=== PATIENT | male | born 1945 | race Caucasian/White ===

== ENCOUNTER 2023-10-25 12:13 | Outpatient (OUT) | payer MEDICARE, SELFPAY | END 2023-10-25 12:14 | disposition home or self-care (01) | LOC: PST 12:14 | PROVIDERS: PCP Internal Medicine; Visit Provider Surgery | DX: Z01.818 Encounter for other preprocedural examination (principal); R19.5 Other fecal abnormalities ==

== ENCOUNTER 2023-11-01 07:56 | Day surgery (SDC) | payer MEDICARE, OTHER, SELFPAY ==
--- NOTE | 2023-11-01 | OP_ITS ---
OPERATION DATE: 11/01/2023 PREOPERATIVE DIAGNOSIS: Positive Cologuard. POSTOPERATIVE DIAGNOSIS: A 4 mm descending colon polyp and severe descending and sigmoid diverticulosis. PROCEDURE: Colonoscopy to cecum with cold biopsy forceps polypectomy x1. SURGEON: Ben Mariano M.D. ANESTHESIA: Monitored anesthesia care. ESTIMATED BLOOD LOSS: Less than 1 mL. INDICATIONS AND CONSENT: Patient is a 78-year-old male with a recent positive Cologuard. Indications, risks, benefits, alternatives of proceeding with colonoscopy were explained extensively to the patient, including the risks of bleeding, colon perforation or anesthetic complications. All of his questions were answered. Informed consent was obtained. PROCEDURE: Patient brought to the operating room, placed in the left lateral decubitus position. Monitored anesthesia care was provided. Rectal exam was performed which showed no masses or blood. The scope was inserted into the anal canal. Under direct visualization was advanced. With the aid of abdominal compression, it was advanced to the cecum where cecal markings were clearly identified. There was noted to be a fair prep with some brown liquid stool and semi-solid stool that was partially irrigated clear. Upon withdrawal of the scope, mucosal surfaces were carefully examined. There were no mass lesions or inflammatory changes. There was severe diverticulosis in the descending and sigmoid colon, without inflammatory changes or scarring. Within the descending colon, there was noted to be a 4 mm sessile polyp that was removed with cold biopsy forceps with good hemostasis. The scope was retroflexed in the anal canal. There was noted to be no significant hemorrhoidal disease. Scope was then withdrawn. Patient tolerated procedure well, was sent to recovery room in good condition. Follow up surveillance colonoscopy likely in five years but will depend on the pathology results. CC: Nina Ward
[2023-11-01 08:21] VITALS: BP 154/96; PULSE 96; RESP 16; TEMP 36.2; O2SAT 96; BMI 27.9
[2023-11-01] MEDS: LACTATED RINGER'S SOLUTION 1,000 ML 50 ML IV (08:31)
[2023-11-01 10:24] VITALS: BP 94/57; PULSE 77; RESP 16; TEMP 36.1; O2SAT 97
[2023-11-01 10:39] VITALS: BP 112/82; PULSE 73; RESP 16; O2SAT 97
[2023-11-01 10:54] VITALS: BP 114/86; PULSE 82; RESP 16; O2SAT 96
== END 2023-11-01 10:54 | disposition home or self-care (01) ==
PROVIDERS: PCP Internal Medicine; Visit Provider Surgery
PROC: (CPT 45380; principal; 2023-11-01 09:25)
DX: R19.5 Other fecal abnormalities (principal); K57.30 Diverticulosis of large intestine without perforation or abscess without bleeding; D12.4 Benign neoplasm of descending colon; N40.1 Benign prostatic hyperplasia with lower urinary tract symptoms; F32.A Depression, unspecified; K21.9 Gastro-esophageal reflux disease without esophagitis; Z87.442 Personal history of urinary calculi; E78.5 Hyperlipidemia, unspecified; I10 Essential (primary) hypertension; R33.9 Retention of urine, unspecified; R35.1 Nocturia; G47.33 Obstructive sleep apnea (adult) (pediatric); Z68.28 Body mass index [BMI] 28.0-28.9, adult; N41.9 Inflammatory disease of prostate, unspecified; E11.9 Type 2 diabetes mellitus without complications; R35.0 Frequency of micturition; R39.15 Urgency of urination; R32 Unspecified urinary incontinence; E66.9 Obesity, unspecified; Z87.891 Personal history of nicotine dependence; I65.29 Occlusion and stenosis of unspecified carotid artery; I71.9 Aortic aneurysm of unspecified site, without rupture
CPT/HCPCS: 45380; 88305; J2704

== ENCOUNTER 2024-09-07 09:02 | Emergency (ER) | payer MEDICARE, OTHER, SELFPAY ==
[2024-09-07 09:07] VITALS: BP 175/94; PULSE 60; TEMP 36.5; O2SAT 99; BMI 28.0
--- NOTE | 2024-09-07 09:17 | CT_ITS ---
The [address] [address] Patient Name: SAIDA HOANG MRN: [id number] date: 1945 Sex: M Assigned Patient Location: ER Current Patient Location: ED.MAIN Accession/Order Number: [id number] Exam Date: 09/07/2024 09:28 Report Date: 09/07/2024 10:58 At the request of: BRAVO BUSH Procedure: CT abdomen pelvis wo con CT ABDOMEN AND PELVIS WITHOUT CONTRAST: 09/07/2024 9:28 AM EDT Clinical Data: left flank pain hx of stone Comparison: No previous Unenhanced helically acquired data per protocol. The lack of IV contrast material hampers evaluation of the viscera, for adenopathy, and of the vasculature. The lack of oral contrast medium to some extent hampers evaluation of the bowel. All CT scans at this facility use dose modulation, iterative reconstruction, and/or weight based dosing when appropriate to reduce radiation dose to as low as reasonably achievable. FINDINGS: LOWER THORAX: Calcified pleural plaques at both bases. Areas of relatively mild linear atelectasis at both bases. LIVER: No acute findings. SPLEEN: No acute findings. GB/BILIARY: No acute findings at CT. PANCREAS: Head, neck, and uncinate process are extensively fatty replaced ADRENALS: No acute findings. KIDNEYS/URETERS: Kidneys are symmetric in size and overall density on this unenhanced study. No right hydronephrosis or hydroureter. No right calculi. Mild left hydronephrosis and hydroureter to a position a few cm proximal to the UVJ. At this point there is a is a 6.7 mm ureteral calculus. The far distal ureter and UVJ are unremarkable. VESSELS: No AAA ABDOMINAL NODES: No obvious adenopathy. PELVIC NODES: No obvious adenopathy. BLADDER: No acute findings. REPRODUCTIVE: No acute findings. PERITONEUM: No free air. No free fluid. EXTRAPERITONEUM: No acute findings. BOWEL: No GI obstruction. A moderate amount of stool in the throughout much of the colon. The sigmoid is fairly redundant. There are colonic diverticula. Small hiatal hernia suspected. Mild amount of debris in the stomach. Small bowel is not distended. It contains a mild amount of material. On this study performed without oral contrast medium, no focally thickened loop of bowel is apparent. BODY WALL: No acute findings.. BONES: No acute findings. Suspect a significant central stenosis at L4-L5 and potentially at L2-L3 as well OTHER: No acute findings. CT/CT abdomen pelvis wo con IMPRESSION: 1. Mild left hydronephrosis and hydroureter. In the pelvic left ureter there is a 6.7 mm calculus. 2. Calcified pleural plaques along both diaphragmatic surfaces. Was there prior asbestos exposure? 3. No GI obstruction. Moderate amount stool within the colon. Several colonic diverticula but no distinct evidence of diverticulitis.. Electronically authenticated by: LATRICE GONZALEZ Date: 09/07/2024 10:58
--- NOTE | 2024-09-07 09:18 | ED.ABDPAIN1 ---
HPI - Abdominal Pain General Chief Complaint: Abdominal Pain Stated Complaint: ABDOMINAL PAIN Time Seen by Provider: 09/07/24 09:12 Source: patient Mode of arrival: walk-in History of Present Illness HPI narrative: The patient is a 79-year-old male with history of kidney stone coming to the ER with few hours history of left-sided flank pain radiating to the groin area, the patient have no fever no chills no burning with urination He mentioned that this all symptoms started this morning and the patient pain is crampy like Patient also mentioned that last time he had abdominal pain due to kidney stone was a year ago Related Data Home Medications ?Medication ?Instructions ?Recorded ?Confirmed bupropion HCl 450 mg 24 hr tablet, 450 mg PO DAILY 10/24/23 11/01/23 extended release doxepin 10 mg capsule 10 mg PO BID 10/24/23 11/01/23 ertugliflozin 5 mg tablet 5 mg PO DAILY 10/24/23 11/01/23 (Steglatro) ezetimibe 10 mg tablet (Zetia) 5 mg PO DAILY 10/24/23 11/01/23 finasteride 5 mg tablet 5 mg PO DAILY 10/24/23 11/01/23 folic acid 1 mg tablet 1 mg PO DAILY 10/24/23 11/01/23 magnesium oxide 400 mg PO DAILY 10/24/23 11/01/23 montelukast 10 mg tablet 10 mg PO DAILY 10/24/23 11/01/23 yiqnjfst-vqz-khjcl acid 0.4 1 tab PO DAILY 10/24/23 11/01/23 mg-lycopene 300 mcg-lutein 250 mcg tablet (Centrum Silver) nabumetone 500 mg tablet 500 mg PO BID 10/24/23 11/01/23 omeprazole 40 mg capsule,delayed 40 mg PO DAILY 10/24/23 11/01/23 release polyethylene glycol 3350 17 17 g PO BID 10/24/23 11/01/23 gram/dose oral powder (Miralax) potassium citrate 10 mEq (1,080 10 meq PO DAILY 10/24/23 11/01/23 mg) tablet,extended release rosuvastatin 20 mg tablet (Crestor) 20 mg PO DAILY 10/24/23 11/01/23 sacubitril 24 mg-valsartan 26 mg 1 tab PO BID 10/24/23 11/01/23 tablet (Entresto) Previous Rx's ?Medication ?Instructions ?Recorded doxycycline hyclate 100 mg tablet 100 mg PO BID 7 days #14 tabs 09/07/24 tamsulosin 0.4 mg capsule (Flomax) 0.4 mg PO DAILY #10 caps 09/07/24 Allergies Allergy/AdvReac Type Severity Reaction Status Date / Time Penicillins Allergy Severe Verified 10/24/23 11:23 codeine Allergy Intermediate Verified 10/24/23 10:16 quinapril (From Accupril) Allergy Intermediate Verified 10/24/23 10:16 Sulfa (Sulfonamide Allergy Intermediate Verified 10/24/23 10:16 Antibiotics) Review of Systems ROS Status of ROS 10 or more systems reviewed and unremarkable except as noted in history and below [facility] Medical History (Updated 09/07/24 @ 11:41 by Makenzie West MD) Abnormal cystoscopy ?R39.9 - Unspecified symptoms and signs involving the genitourinary system (ICD-10) Kidney stones ?N20.0 - Calculus of kidney (ICD-10) Carotid atherosclerosis ?I65.29 - Occlusion and stenosis of unspecified carotid artery (ICD-10) BPH (benign prostatic hyperplasia) ?N40.0 - Benign prostatic hyperplasia without lower urinary tract symptoms (ICD-10) Surgical History (Updated 10/27/23 @ 15:17 by Gardenia Hall) History of cystoscopy ?Z98.890 - Other specified postprocedural states (ICD-10) History of lithotripsy ?Z98.890 - Other specified postprocedural states (ICD-10) History of esophagogastroduodenoscopy (EGD) ?Z98.890 - Other specified postprocedural states (ICD-10) History of colonoscopy ?Z98.890 - Other specified postprocedural states (ICD-10) History of carotid endarterectomy ?Z98.890 - Other specified postprocedural states (ICD-10) History of cardiac cath ?Z98.890 - Other specified postprocedural states (ICD-10) S/P TURP ?Z90.79 - Acquired absence of other genital organ(s) (ICD-10) Family History (Updated 10/24/23 @ 10:12 by Gardenia Dominguez) Other Family history of cancer Social History (Updated 10/27/23 @ 15:31 by Gardenia Hall) Within the past year, how often did you have a drink containing alcohol: never Score interpretation: A score less than 4 is consistent with normal alcohol consumption. Smoking status: Former smoker Non-prescribed substance use: denies use Previous occupational history: retired Highest level of school completed/degree received: 10th grade Little interest or pleasure in doing things: not at all Feeling down, depressed, or hopeless: not at all Exam Narrative Exam Narrative: Nurses notes and vital signs reviewed and patient is not hypoxic. General: Well-appearing and in no apparent distress. Skin: Warm, dry, no pallor noted. No rash. Head: Normocephalic, atraumatic. Neck: Supple, non-tender. Eye: Pupils are equal, round and EOMI. No scleral icterus. Ears, Nose, Mouth, and Throat: TM are clear, no nasal mucosal hypertrophy. Oral mucosa is moist, no posterior oropharynx erythema, uvula is mid-line Cardiovascular: Regular Rate and Rhythm without murmur, gallop or rub. Respiratory: No accessory muscle use or respiratory distress. Lungs are clear to auscultation, no wheezing, rales or rhonchi Chest Wall: no tenderness Back: No midline thoracic or lumbar vertebral tenderness. Left CVA tenderness Musculoskeletal: normal ROM, no calf or popliteal tenderness, no lower extremity edema/swelling GI: Abdomen is soft, non-distended. Normal bowel sounds. No masses appreciated. No tenderness to palpation. No rebound, guarding, or rigidity noted. Neurological: A&O x4. No cranial nerve dysfunction observed. No truncal ataxia. Moves all extremities. Sensation intact. Psychiatric: Cooperative and interactive. Normal mood and affect. Constitutional Vital Signs, click to edit/add: Last Vital Signs Temp 97.7 F 09/07/24 09:07 Pulse 60 09/07/24 09:07 Resp 18 09/07/24 09:07 BP 175/94 H 09/07/24 09:07 Pulse Ox 99 09/07/24 09:07 Course Vital Signs Vital signs: Vital Signs Temperature 97.7 F 09/07/24 09:07 Pulse Rate 60 09/07/24 09:07 Respiratory Rate 18 09/07/24 09:07 Blood Pressure 175/94 H 09/07/24 09:07 Pulse Oximetry 99 09/07/24 09:07 Temperature 97.7 F 09/07/24 09:07 Pulse Rate 60 09/07/24 09:07 Respiratory Rate 18 09/07/24 09:07 Blood Pressure 175/94 H 09/07/24 09:07 Pulse Oximetry 99 09/07/24 09:07 MDM - Abdominal Pain MDM Narrative Medical decision making narrative: The patient is a having pain only from this morning CBC and chemistry shows some acute kidney injury with creatinine 1.9 and he does have a history of chronic kidney disease There is no leukocytosis and the urinalysis shows some bacteria The patient CAT scan shows hydronephrosis mild on the left side with a 6.5 mm kidney stone The patient case was discussed with Dr. David in urology: Service and she wants to follow-up with the patient on Monday Patient meanwhile was started on Flomax he is to avoid any ibuprofen he also provided with doxycycline to cover for prophylactic urine infection coverage The patient to follow-up with the urology service on Monday he is to come back to the ER in case of fever chills or any other concerns He will just take Tylenol for pain as he is feeling much better after initial treatment The patient is to follow up with primary care physician in next 2-3 days or to return to the emergency department should any of the signs or symptoms worsen or new symptoms develop. The patient agrees with the following Diagnosis and Treatment plan and the patient will be discharged home. Lab Data Labs: Lab Results 09/07/24 09/07/24 Range/Units 09:21 09:47 WBC 9.8 (4.0-11.0) 10^3/uL RBC 4.83 (4.70-6.10) 10^6/uL Hgb 14.1 (14.0-18.0) g/dL Hct 43.0 (42.0-54.0) % MCV 89.0 (80.0-94.0) fL MCH 29.2 (25.9-34.0) pg MCHC 32.8 (29.9-35.2) g/dL RDW 12.5 (11.0-15.0) % Plt Count 273 (150-450) 10^3/uL MPV 9.8 (9.5-13.5) fL Neut % (Auto) 69.9 (43.0-75.0) % Lymph % (Auto) 12.0 L (20.5-60.0) % [place] % (Auto) 9.4 (1.7-12.0) % Eos % (Auto) 7.5 H (0.9-7.0) % Baso % (Auto) 1.0 (0.2-2.0) % Neut # (Auto) 6.9 H (1.4-6.5) 10^3/uL Lymph # (Auto) 1.2 (1.2-3.8) 10^3/uL [place] # (Auto) 0.9 H (0.3-0.8) 10^3/uL Eos # (Auto) 0.7 (0.0-0.7) 10^3/uL Baso # (Auto) 0.1 (0.0-0.1) 10^3/uL Abs Immat Gran (auto) 0.02 (0.00-0.03) 10^3/uL Imm/Tot Granulo (auto) 0.2 (0.0-0.5) % Sodium 144 (136-145) mmol/L Potassium 4.4 (3.5-5.1) mmol/L Chloride 107 (98-107) mmol/L Carbon Dioxide 24.4 (21.0-32.0) mmol/L Anion Gap 17.0 BUN 22.0 H (7.0-18.0) mg/dL Creatinine 1.91 H (0.70-1.30) mg/dL Est GFR ( Amer) 42 L (>=60 mL/min/1.73m^2) Est GFR (Non-Af Amer) 34 L (>=60 mL/min/1.73m^2) BUN/Creatinine Ratio 11.5 Glucose 125 H (74-106) mg/dL Calcium 9.4 (8.5-10.1) mg/dL Total Bilirubin 0.4 (0.2-1.0) mg/dL AST 13 L (15-37) U/L ALT 16 (16-63) U/L Alkaline Phosphatase 102 (46-116) U/L Total Protein 6.8 (6.4-8.2) g/dL Albumin 3.5 (3.4-5.0) g/dL Globulin 3.3 g/dL Albumin/Globulin Ratio 1.1 Urine Color Lt. yellow (YELLOW) Urine Clarity Clear (CLEAR) Urine pH 6.5 (5.0-9.0) Ur Specific [place] 1.015 (1.005-1.025) Urine Protein Trace (NEG/TRACE) mg/dL Urine Glucose (UA) Negative (NEGATIVE) mg/dL Urine Ketones Negative (NEGATIVE) mg/dL Urine Occult Blood Large A (NEGATIVE) Urine Nitrite Negative (NEGATIVE) Urine Bilirubin Negative (NEGATIVE) Urine Urobilinogen 0.2 (0.2-1.0) EU/dL Ur Leukocyte Esterase Negative (NEGATIVE) Urine RBC 20-50 A (0-2) #/HPF Urine WBC None seen (NONE SEEN) #/HPF Ur Squamous Epith Cells Rare (NONE/RARE) #/LPF Urine Crystals None seen (None Seen) #/HPF Urine Bacteria Trace A (NONE SEEN) #/HPF Urine Casts None seen (NONE SEEN) #/LPF Urine Mucus Trace A (NONE SEEN) Ur Culture Indicated? No Discharge Plan Discharge Chief Complaint: Abdominal Pain Clinical Impression: Hydronephrosis, Kidney stone Patient Disposition: Home, Self-Care Time of Disposition Decision: 11:41 Condition: Good Prescriptions / Home Meds: New tamsulosin [Flomax] 0.4 mg capsule 0.4 mg PO DAILY Qty: 10 0RF doxycycline hyclate 100 mg tablet 100 mg PO BID 7 Days Qty: 14 0RF No Action bupropion HCl 450 mg tablet extended release 24 hr 450 mg PO DAILY Centrum Silver 0.4 mg-300 mcg- 250 mcg tablet 1 tab PO DAILY doxepin 10 mg capsule 10 mg PO BID Entresto 24-26 mg tablet 1 tab PO BID finasteride 5 mg tablet 5 mg PO DAILY folic acid 1 mg tablet 1 mg PO DAILY magnesium oxide 400 mg magnesium tablet 400 mg PO DAILY polyethylene glycol 3350 [Miralax] 17 gram/dose powder 17 g PO BID montelukast 10 mg tablet 10 mg PO DAILY nabumetone 500 mg tablet 500 mg PO BID omeprazole 40 mg capsule,delayed release(DR/EC) 40 mg PO DAILY potassium citrate 10 mEq (1,080 mg) tablet extended release 10 meq PO DAILY rosuvastatin [Crestor] 20 mg tablet 20 mg PO DAILY Steglatro 5 mg tablet 5 mg PO DAILY ezetimibe [Zetia] 10 mg tablet 5 mg PO DAILY Print Language: Icelandic Instructions: How to Strain Your Urine (ED), Hydronephrosis (ED) Referrals: Dr David [Other] - As soon as possible (call Monday ) DG BALDWIN DO [Primary Care Provider] - 1 week Discharge Date/Time: 09/07/24 11:57
--- OUTSIDE RECORDS SUMMARY | 2024-09-07 09:31 | XMS_ITS | CCD ---
Author Organization [facility] Care Team Providers Care Nurse Orthopedic Name Role Phone MARKER, DR POLLOCK Attending Unavailable MARKER, DR POLLOCK Consulting Unavailable VALONE, DR CONTE Primary Care Unavailable MARKER, DR POLLOCK Admitting Unavailable YAROSH, DANIEL Consulting Unavailable HudsonLatrice Consulting Unavailable VALONE, DR CONTE Primary Care Unavailable APLING, DEEPTHI Admitting Unavailable ZIEBER, DR STACEY Esteban Consulting Unavailable APLING, DEEPTHI Attending Unavailable APLING, DEEPTHI Consulting Unavailable VALONE JR, DG Primary Care Physician [phone] Daniel HILL Attending Unavailable VALONE, DG Referring Unavailable NILL, Daniel Esteban Attending Unavailable NILL, Daniel Esteban Attending Unavailable VALONE JR, DG Whitlock Referring Unavailable VALONE JR, DG Whitlock Primary Care Unavailable VALONE JR, DG Whitlock Referring Unavailable VALONE JR, DG Whitlock Primary Care Unavailable Allergies Allergy Classification Reported Allergen(s) Allergy Type Date of Onset Reaction(s) Facility (1 source) Acetaminophen / oxyCODONE Drug Allergy 03-01-20 22 [facility] Repository (1 source) Clarithromycin Drug Allergy 08-26-20 15 [facility] Rep[facility] (3 sources) Codeine; Translations: [codeine] Drug Allergy 08-26-20 15 [facility] (1 source) cyclobenzaprine Drug Allergy [facility] (1 source) Lincomycin Drug Allergy [facility] (2 sources) Penicillins; Translations: [PENICILLINS] Drug allergy (disorder) 08-26-20 15 [facility] (2 sources) quinapril; Translations: [Accupril] Drug Allergy 08-26-20 15 [facility] (1 source) Sertraline Drug Allergy [facility] (1 source) Sulfonamides (Antibiotic) Drug allergy (disorder) 11-24-19 16 [facility] (1 source) Codeine; Translations: [codeine] Drug Allergy Unknown (qualifier value) [facility] (2 sources) Penicillin; Translations: [penicillin] Drug Allergy [facility] (1 source) quinapril; Translations: [quinapril] Drug Allergy Unknown (qualifier value) [facility] (2 sources) Sulfamethoxazole; Translations: [sulfamethoxazole] Drug Allergy Eruption (morphologic abnormality) [facility] (1 source) Clarithromycin; Translations: [clarithromycin] Drug Allergy [facility] Repository (1 source) Acetaminophen / oxyCODONE; Translations: [OXYCODONE-ACETAMIN OPHEN] Drug Allergy 07-29-20 [facility] Repository (1 source) Sulfamethoxazole / Trimethoprim; Translations: [SULFAMETHOXAZOLE-T RIMETHOPRIM] Drug Allergy 01-24-20 [facility] Repository (1 source) Sulfonamides (Antibiotic); Translations: [SULFA (SULFONAMIDE ANTIBIOTICS)] Propensity to adverse reactions to drug (disorder) 01-24-20 [facility] Repository Medications Current Medications Medication Drug Class(es) Dates Sig (Normalized) Sig (Original) 24 hr buPROPion hydrochloride 150 mg extended release oral tablet (1 source) Aminoketone Start: 08-31-2023 take 1 tablet by mouth once daily buPROPion 150 mg/24 hours XL Tab 450 mg = 3 tab(s), Oral, Daily, Refills(s) 0 Start Date: 08/31/23 Status: Ordered Centrum Silver (1 source) Start: 01-28-2020 Centrum Silver Oral, Daily, Refill(s) 0 Start Date: 01/28/20 Status: Ordered Doxepin (1 source) Tricyclic Antidepressant Start: 10-04-2023 doxepin as directed, Refills(s) 0 Start Date: 10/04/23 Status: Ordered ertugliflozin 5 mg oral tablet (1 source) Start: 10-04-2023 take 1 tablet by mouth once daily in the morning Steglatro 5 mg oral tablet 5 mg = 1 tab(s), Oral, qAM, Refills(s) 0 Start Date: 10/04/23 Status: Ordered Zetia (1 source) Dietary Cholesterol Absorption Inhibitor Start: 01-28-2020 take 5 mg by mouth once daily Zetia 5 mg, Oral, Daily, Refills(s) 0 Start Date: 01/28/20 Status: Ordered finasteride 5 mg oral tablet (1 source) 5-alpha Reductase Inhibitor Start: 01-28-2020 take 1 tablet by mouth once daily finasteride 5 mg Tab 5 mg = 1 tab(s), Oral, Daily, # 30 tab(s), Refills(s) 0 Start Date: 01/28/20 Status: Ordered folic acid 1 mg oral tablet (1 source) Start: 10-04-2023 take 2 tablets by mouth once daily folic acid 1 mg Tab 2 mg = 2 tab(s), Oral, Daily, Refills(s) 0 Start Date: 10/04/23 Status: Ordered magnesium oxide 400 mg oral tablet (1 source) Start: 10-04-2023 take 1 tablet by mouth once daily magnesium oxide 400 mg Tab 400 mg = 1 tab(s), Oral, Daily, Refills(s) 0 Start Date: 10/04/23 Status: Ordered montelukast 10 mg oral tablet (1 source) Leukotriene Receptor Antagonist Start: 08-31-2023 take 1 tablet by mouth once daily montelukast 10 mg Tab 10 mg = 1 tab(s), Oral, Daily, Refills(s) 0 Start Date: 08/31/23 Status: Ordered nabumetone 500 mg oral tablet (1 source) Nonsteroidal Anti-inflammatory Drug Start: 08-31-2023 take 1 tablet by mouth twice daily nabumetone 500 mg Tab 500 mg = 1 tab(s), Oral, BID, Refills(s) 0 Start Date: 08/31/23 Status: Ordered omeprazole 40 mg delayed release oral capsule (1 source) Proton Pump Inhibitor Start: 08-31-2023 take 1 capsule by mouth once daily omeprazole 40 mg Cap-DR 40 mg = 1 cap(s), Oral, Daily, Refills(s) 0 Start Date: 08/31/23 Status: Ordered Miralax (1 source) Osmotic Laxative Start: 10-04-2023 take 17 g by mouth twice daily MiraLax 17 gm, Oral, BID, Refill(s) 0 Start Date: 10/04/23 Status: Ordered rosuvastatin calcium 20 mg oral tablet (1 source) HMG-CoA Reductase Inhibitor Start: 08-31-2023 take 1 tablet by mouth once daily rosuvastatin 20 mg Tab 20 mg = 1 tab(s), Oral, Daily, Refills(s) 0 Start Date: 08/31/23 Status: Ordered sacubitril 24 mg / valsartan 26 mg oral tablet (1 source) Angiotensin 2 Receptor Tran Start: 10-04-2023 take 1 tablet by mouth twice daily Entresto 24 mg-26 mg oral tablet 1 tab(s), Oral, BID, Refill(s) 0 Start Date: 10/04/23 Status: Ordered Completed/Discontinued Medications Medication Drug Class(es) Dates Sig (Normalized) Sig (Original) potassium citrate 10 meq extended release oral tablet (1 source) Start: 08-31-2023 take 1 tablet by mouth once daily potassium CITRATE 10 mEq ER Tab 10 mEq, 1 tab(s), Oral, Daily, Refill(s) 0 Start Date: 08/31/23 Status: Ordered Problems Active Problems Problem Classification Problem Date Documented Date Episodic/Chronic Abdominal pain (3 sources) Unspecified abdominal pain; Translations: [UNSPECIFIED ABDOMINAL PAIN] Onset: 03-01-2022 Episodic Anxiety disorders (2 sources) Generalized anxiety disorder; Translations: [Posttraumatic stress disorder] 10-04-2023 Chronic Aortic; peripheral; and visceral artery aneurysms (2 sources) Abdominal aortic aneurysm, without rupture; Translations: [Aortic aneurysm] Onset: 03-04-2022 10-04-2023 Chronic Comment on above: Outside Source Comme nt: April 06, 2016 Entered By: MYNOR BLISS Comment: Unsure if aneurysm, but very small Calculus of urinary tract (3 sources) Personal history of urinary calculi; Translations: [History of calculus of kidney] Onset: 03-04-2022 01-28-2020 Episodic Congestive heart failure; nonhypertensive (1 source) Heart failure 10-04-2023 Chronic Diabetes mellitus without complication (1 source) Type 2 diabetes mellitus controlled by diet 10-04-2023 Chronic Disorders of lipid metabolism (2 sources) Hyperlipidemia, unspecified; Translations: [Hyperlipidemia] Onset: 03-04-2022 01-28-2020 Chronic Diverticulosis and diverticulitis (3 sources) Diverticula of intestine; Translations: [Diverticulosis of large intestine without perforation or abscess without bleeding] Onset: 11-14-2023 Chronic Esophageal disorders (1 source) Gastroesophageal reflux disease 10-04-2023 Chronic Essential hypertension (2 sources) Essential (primary) hypertension; Translations: [Hypertensive disorder] Onset: 03-04-2022 01-28-2020 Chronic Genitourinary symptoms and ill-defined conditions (1 source) Urge incontinence of urine 01-28-2020 Chronic Genitourinary symptoms and ill-defined conditions (5 sources) Incomplete emptying of bladder; Translations: [Increased frequency of urination] 01-28-2020 Episodic Hyperplasia of prostate (1 source) Benign prostatic hypertrophy with outflow obstruction 01-28-2020 Chronic Inflammatory conditions of male genital organs (1 source) Prostatitis 01-28-2020 Episodic Mood disorders (1 source) Depressive disorder 10-04-2023 Chronic Other aftercare (1 source) Other penitentiary (current) drug therapy; Translations: [OTH SPARE FIXER CURRENT DRUG THERAPY] Onset: 03-04-2022 Episodic Other and unspecified benign neoplasm (2 sources) Benign neoplasm of descending colon; Translations: [Benign neoplasm of descending colon] Onset: 11-14-2023 Episodic Other male genital disorders (1 source) Impotence 01-28-2020 Chronic Other nervous system disorders (1 source) Ataxia, unspecified; Translations: [Ataxia, unspecified] Onset: 02-15-2024 Episodic Other nutritional; endocrine; and metabolic disorders (1 source) Overweight 10-10-2023 Episodic Other nutritional; endocrine; and metabolic disorders (1 source) Overweight in adulthood with body mass index of 25 or more but less than 30 10-10-2023 Episodic Other screening for suspected conditions (not mental disorders or infectious disease) (1 source) Stool DNA-based colorectal cancer screening positive 10-10-2023 Episodic Peripheral and visceral atherosclerosis (1 source) Carotid atherosclerosis 10-04-2023 Chronic Comment on above: Outside Source Comme nt: April 06, 2016 Entered By: MYNOR BLISS Comment: Rt chapman 2007 Residual codes; unclassified (1 source) Obstructive sleep apnea syndrome 10-04-2023 Chronic Screening and history of mental health and substance abuse codes (1 source) Ex-smoker 01-28-2020 Episodic Spondylosis; intervertebral disc disorders; other back problems (4 sources) Other intervertebral disc degeneration, lumbar region; Translations: [OTH IV DISC DEGEN LUMBAR REGION] Onset: 09-07-2021 Chronic Urinary tract infections (1 source) Urinary tract infection, site not specified; Translations: [UTI SITE NOT SPECIFIED] Onset: 03-04-2022 Episodic Past or Other Problems Problem Classification Problem Date Documented Da te Episodic/Chronic Unclassified (1 source) Drug therapy finding 10-04-2023 Results Test Name Value Interpretation Reference Range Facility Ambulatory Visit Summaryon 1 01-15-2023 Ambulatory Visit Summary SAIDA HOANG :1945 Visit Date:11/14/2023 Ambulatory Visit Instructions Your Diagnosis Benign neoplasm of descending colon Sigmoid diverticulosis Your Care Team Attending Physician - SERGIO LAMA, Daniel Esteban Primary Care Physician - DG BALDWIN JR, DO This Is Your Medications List Contact prescribing physician if questions or concerns buPROPion (buPROPion 150 mg/24 hours XL Tab) doxepin ertugliflozin (Steglatro 5 mg oral tablet) ezetimibe (Zetia) finasteride (finasteride 5 mg Tab) folic acid (folic acid 1 mg Tab) magnesium oxide (magnesium oxide 400 mg Tab) montelukast (montelukast 10 mg Tab) multivitamin with minerals (Centrum Silver) nabumetone (nabumetone 500 mg Tab) omeprazole (omeprazole 40 mg Cap-DR) polyethylene glycol 3350 (MiraLax) potassium citrate (potassium CITRATE 10 mEq ER Tab) rosuvastatin (rosuvastatin 20 mg Tab) sacubitril-valsartan (Entresto 24 mg-26 mg oral tablet) Procedures Performed Colonoscopy (11/01/2023), Colonoscopy (06/05/2020), TURP - Transurethral resection of prostate (12/03/2015), Cystoscopy (11/17/2015), EGD - esophagogastroduodenoscopy (08/2015), Cystoscopy (11/02/2011), Cystoscopic laser lithotripsy of ureteric calculus (11/21/2008), Laser ablation of prostate (05/13/2008), Urodynamics (12/29/2005), Cystoscopy (12/06/2005), Colonoscopy (2003), Colonoscopy (1996), Cardiac catheterization, Carotid endarterectomy. Medications What How Much When Instructions Unchanged buPROPion (buPROPion 150 mg/ 24 hours XL Tab) 3 Tablets By Mouth Every day Contact prescribing physician if questions or concerns Unchanged doxepin as directed Contact prescribing physician if questions or concerns Unchanged ertugliflozin (Steglatro 5 mg oral tablet) 1 Tablets By Mouth Once a day (in the morning) Contact prescribing physician if questions or concerns Unchanged ezetimibe (Zetia) 5 Milligram By Mouth Every day Contact prescribing physician if questions or concerns Unchanged finasteride (finasteride 5 mg Tab) 1 Tablets By Mouth Every day Contact prescribing physician if questions or concerns Unchanged folic acid (folic acid 1 mg Tab) 2 Tablets By Mouth Every day Contact prescribing physician if questions or concerns Unchanged magnesium oxide (magnesium oxide 400 mg Tab) 1 Tablets By Mouth Every day Contact prescribing physician if questions or concerns Unchanged montelukast (montelukast 10 mg Tab) 1 Tablets By Mouth Every day Contact prescribing physician if questions or concerns Unchanged multivitamin with minerals (Centrum Silver) By Mouth Every day Contact prescribing physician if questions or concerns Unchanged nabumetone (nabumetone 500 mg Tab) 1 Tablets By Mouth 2 times a day Contact prescribing physician if questions or concerns Unchanged omeprazole (omeprazole 40 mg Cap-DR) 1 Capsules By Mouth Every day Contact prescribing physician if questions or concerns Unchanged polyethylene glycol 3350 (MiraLax) 17 Gram By Mouth 2 times a day Contact prescribing physician if questions or concerns Unchanged potassium citrate (potassium CITRATE 10 mEq ER Tab) 1 Tablets By Mouth Every day Contact prescribing physician if questions or concerns Unchanged rosuvastatin (rosuvastatin 20 mg Tab) 1 Tablets By Mouth Every day Contact prescribing physician if questions or concerns Unchanged sacubitril-valsartan (Entresto 24 mg-26 mg oral tablet) 1 Tablets By Mouth 2 times a day Contact prescribing physician if questions or concerns Allergies Accupril (Unknown) codeine (Unknown) penicillin sulfamethoxazole (Rash) Problems Ongoing - Any problem that you are currently receiving treatment for. Aortic aneurysm Benign neoplasm of descending colon BMI 28.0-28.9,adult BPH with urinary obstruction Carotid atherosclerosis Depressive disorder Diverticulosis Former smoker Generalized anxiety disorder GERD (gastroesophageal reflux disease) Heart failure History of kidney stones Hyperlipidemia Hypertension Impotence Incomplete bladder emptying Microscopic hematuria Nephrolithiasis Nocturia JASPAL (obstructive sleep apnea) Overweight Positive colorectal cancer screening using Cologuard test Prostatitis PTSD (post-traumatic stress disorder) Sigmoid diverticulosis Type 2 diabetes mellitus controlled by diet Urge incontinence Urinary frequency Urinary urgency Historical - Any problem that you are no longer receiving treatment for. Anticoagulated Patient Survey You may receive a survey via text or e-mail asking about your office visit. Please share your experience with us by completing your survey. We appreciate your feedback and thank you for choosing us for your care. Donald Lu [facility] General Surgery Office/Clini c Noteon 11-14-2023 General Surgery Office/Clinic Note Chief Complaint colonoscopy follow up HPI Staff 13 day post operative follow up post colonoscopy with descending polypectomy. History of Present Illness s/p colonoscopy for positive Cologuard; small descending colon tubular adenoma removed; patient also with severe diverticulosis; doing well, denies abd pain or blood in stools. Review of Systems ROS - Provider Constitutional: no fever, no sweats, no weight loss. Eyes: no glasses, no blurred vision, no visual loss. ENMT: no dentures, no hoarseness, no swallowing difficulties, no hearing loss, no ear infection(s), no nose bleeds. Cardiovascular: normal blood pressure, no chest pain, regular heartbeat, no heart murmur. Respiratory: no shortness of breath, no cough, no asthma, no wheezing. Gastrointestinal: no nausea, no vomiting, no diarrhea, no constipation, no blood in stool, no change in bowel habits, no abdominal pain, no hepatitis. Genitourinary: no kidney stones, no urine infection, no dysuria. Musculoskeletal: no pain, no weakness. Skin: no changing moles, no rash, no skin lumps. Neurologic: no seizures, no epilepsy, no headache. Psychiatric: no emotional or psychiatric problem. Heme/Lymph: no bleeding problems, no anemia, no blood clots, no transfusions. Allergy/Immunologic: no swollen lymph nodes/glands, no IV drug abuse. Other: Additional ROS info: Except as noted in the above Review of Systems and in the History of Present Illness, all other systems have been reviewed and are negative or noncontributory. Assessment/Plan 1. Benign neoplasm of descending colon (D12.4: Benign neoplasm of descending colon) recommend surveillance colonoscopy in 5 years if in good health; call sooner if problems/questions. 2. Sigmoid diverticulosis (K57.30: Diverticulosis of large intestine without perforation or abscess without bleeding) high fiber diet and daily fiber supplement. Follow-up No qualifying data available Problem List/Past Medical History Ongoing Aortic aneurysm Benign neoplasm of descending colon BMI 28.0-28.9,adult BPH with urinary obstruction Carotid atherosclerosis Depressive disorder Diverticulosis Former smoker Generalized anxiety disorder GERD (gastroesophageal reflux disease) Heart failure History of kidney stones Hyperlipidemia Hypertension Impotence Incomplete bladder emptying Microscopic hematuria Nephrolithiasis Nocturia JASPAL (obstructive sleep apnea) Overweight Positive colorectal cancer screening using Cologuard test Prostatitis PTSD (post-traumatic stress disorder) Sigmoid diverticulosis Type 2 diabetes mellitus controlled by diet Urge incontinence Urinary frequency Urinary urgency Historical Anticoagulated Procedure/Surgical History Colonoscopy (11/01/2023), Colonoscopy (06/05/2020), TURP - Transurethral resection of prostate (12/03/2015), Cystoscopy (11/17/2015), EGD - esophagogastroduodenoscopy (08/2015), Cystoscopy (11/02/2011), Cystoscopic laser lithotripsy of ureteric calculus (11/21/2008), Laser ablation of prostate (05/13/2008), Urodynamics (12/29/2005), Cystoscopy (12/06/2005), Colonoscopy (2003), Colonoscopy (1996), Cardiac catheterization, Carotid endarterectomy. Medications buPROPion 150 mg/24 hours XL Tab, 450 mg= 3 tab(s), Oral, Daily Centrum Silver, Oral, Daily doxepin Entresto 24 mg-26 mg oral tablet, 1 tab(s), Oral, BID finasteride 5 mg Tab, 5 mg= 1 tab(s), Oral, Daily folic acid 1 mg Tab, 2 mg= 2 tab(s), Oral, Daily magnesium oxide 400 mg Tab, 400 mg= 1 tab(s), Oral, Daily MiraLax, 17 gm, Oral, BID montelukast 10 mg Tab, 10 mg= 1 tab(s), Oral, Daily nabumetone 500 mg Tab, 500 mg= 1 tab(s), Oral, BID omeprazole 40 mg Cap-DR, 40 mg= 1 cap(s), Oral, Daily potassium CITRATE 10 mEq ER Tab, 10 mEq= 1 tab(s), Oral, Daily rosuvastatin 20 mg Tab, 20 mg= 1 tab(s), Oral, Daily Steglatro 5 mg oral tablet, 5 mg= 1 tab(s), Oral, qAM Zetia, 5 mg, Oral, Daily Allergies Accupril (Unknown) codeine (Unknown) penicillin sulfamethoxazole (Rash) Social History Alcohol - Denies Alcohol Use, 10/10/2023 Substance Abuse - Denies Substance Abuse, 10/10/2023 Tobacco Former smoker, quit more than 30 days ago Tobacco Use:. Never Smokeless Tobacco Use:. Cigarettes, 0.75 per day. Started age 19.0 Years. Stopped age 57 Years., 10/10/2023 Family History Primary malignant neoplasm of lung: Father. Renal stone: Mother. Immunizations Vaccine Date Status influenza virus vaccine, inactivated 08/2023 Recorded SARS-CoV-2 (COVID-19) mRNA-1273 vaccine 01/27/2021 Recorded SARS-CoV-2 (COVID-19) mRNA-1273 vaccine 12/30/2020 Recorded Normal [facility] Comment on above: Result Comment: Elec tronically Signed By: SERGIO LAMA, Daniel Araujo\Date and Time Signed: 11/14/23 14:42 EST Reminderson 11-14-2023 Reminders - From: Karly Workman LPN To: N - Clinical; Sent: 11/14/2023 15:07:51 EST Show up: 10/02/2028 07:00:00 EST Subject: colonoscopy recall Due Date/Time: 11/01/2028 07:00:00 EST Reminder/Recall Patient due for surveillance colonoscopy 11/01/2028 due to history of tubular adenoma. Normal [facility] Outside Colonoscopyon 2022 Outside Colonoscopy [id number] Normal [facility] Pathology Noteon 11-07-2023 Pathology Note [id number] Normal [facility] Consent for Procedure/Surger yon 10-11-2023 Consent for Procedure/Surgery [id number] Normal [facility] Facesheeton 10-11-2023 Facesheet [id number]#1.00TIFF Normal [facility] Ambulatory Visit Summaryon 1 12-10-2022 Ambulatory Visit Summary SAIDA HOANG :1945 Visit Date:10/10/2023 Ambulatory Visit Instructions Your Diagnosis Positive colorectal cancer screening using Cologuard test Your Care Team Attending Physician - SERGIO LAMA, Daniel Esteban Primary Care Physician - DG BALDWIN JR, DO Referring Physician - DG BALDWIN JR, DO This Is Your Medications List Contact prescribing physician if questions or concerns buPROPion (buPROPion 150 mg/24 hours XL Tab) doxepin ertugliflozin (Steglatro 5 mg oral tablet) ezetimibe (Zetia) finasteride (finasteride 5 mg Tab) folic acid (folic acid 1 mg Tab) magnesium oxide (magnesium oxide 400 mg Tab) montelukast (montelukast 10 mg Tab) multivitamin with minerals (Centrum Silver) nabumetone (nabumetone 500 mg Tab) omeprazole (omeprazole 40 mg Cap-DR) polyethylene glycol 3350 (MiraLax) potassium citrate (potassium CITRATE 10 mEq ER Tab) rosuvastatin (rosuvastatin 20 mg Tab) sacubitril-valsartan (Entresto 24 mg-26 mg oral tablet) Procedures Performed Colonoscopy (06/05/2020), TURP - Transurethral resection of prostate (12/03/2015), Cystoscopy (11/17/2015), EGD - esophagogastroduodenoscopy (08/2015), Cystoscopy (11/02/2011), Cystoscopic laser lithotripsy of ureteric calculus (11/21/2008), Laser ablation of prostate (05/13/2008), Urodynamics (12/29/2005), Cystoscopy (12/06/2005), Colonoscopy (2003), Colonoscopy (1996), Cardiac catheterization, Carotid endarterectomy. Discharge Vitals Heart Rate (Peripheral) 72 Respiratory Rate 16 Blood Pressure 118/72 Height 193 cm Height 76 in Weight 106 kg Weight 233.2 lb BMI 28.46 Medications What How Much When Instructions Unchanged buPROPion (buPROPion 150 mg/ 24 hours XL Tab) 3 Tablets By Mouth Every day Contact prescribing physician if questions or concerns Unchanged doxepin as directed Contact prescribing physician if questions or concerns Unchanged ertugliflozin (Steglatro 5 mg oral tablet) 1 Tablets By Mouth Once a day (in the morning) Contact prescribing physician if questions or concerns Unchanged ezetimibe (Zetia) 5 Milligram By Mouth Every day Contact prescribing physician if questions or concerns Unchanged finasteride (finasteride 5 mg Tab) 1 Tablets By Mouth Every day Contact prescribing physician if questions or concerns Unchanged folic acid (folic acid 1 mg Tab) 2 Tablets By Mouth Every day Contact prescribing physician if questions or concerns Unchanged magnesium oxide (magnesium oxide 400 mg Tab) 1 Tablets By Mouth Every day Contact prescribing physician if questions or concerns Unchanged montelukast (montelukast 10 mg Tab) 1 Tablets By Mouth Every day Contact prescribing physician if questions or concerns Unchanged multivitamin with minerals (Centrum Silver) By Mouth Every day Contact prescribing physician if questions or concerns Unchanged nabumetone (nabumetone 500 mg Tab) 1 Tablets By Mouth 2 times a day Contact prescribing physician if questions or concerns Unchanged omeprazole (omeprazole 40 mg Cap-DR) 1 Capsules By Mouth Every day Contact prescribing physician if questions or concerns Unchanged polyethylene glycol 3350 (MiraLax) 17 Gram By Mouth 2 times a day Contact prescribing physician if questions or concerns Unchanged potassium citrate (potassium CITRATE 10 mEq ER Tab) 1 Tablets By Mouth Every day Contact prescribing physician if questions or concerns Unchanged rosuvastatin (rosuvastatin 20 mg Tab) 1 Tablets By Mouth Every day Contact prescribing physician if questions or concerns Unchanged sacubitril-valsartan (Entresto 24 mg-26 mg oral tablet) 1 Tablets By Mouth 2 times a day Contact prescribing physician if questions or concerns Allergies Accupril (Unknown) codeine (Unknown) penicillin sulfamethoxazole (Rash) Problems Ongoing - Any problem that you are currently receiving treatment for. Aortic aneurysm BMI 28.0-28.9,adult BPH with urinary obstruction Carotid atherosclerosis Depressive disorder Diverticulosis Former smoker Generalized anxiety disorder GERD (gastroesophageal reflux disease) Heart failure History of kidney stones Hyperlipidemia Hypertension Impotence Incomplete bladder emptying Microscopic hematuria Nephrolithiasis Nocturia JASPAL (obstructive sleep apnea) Overweight Positive colorectal cancer screening using Cologuard test Prostatitis PTSD (post-traumatic stress disorder) Type 2 diabetes mellitus controlled by diet Urge incontinence Urinary frequency Urinary urgency Historical - Any problem that you are no longer receiving treatment for. Anticoagulated Patient Survey You may receive a survey via text or e-mail asking about your office visit. Please share your experience with us by completing your survey. We appreciate your feedback and thank you for choosing us for your care. Normal [facility] Physician Referralon 023 Physician Referral [id number] Normal [facility] CULTURE URINEon 03-04-2022 CULTURE URINE Culture Observations : METHICILLIN RESISTANT STAPH EPIDERMIDIS ISOLATED. Culture Observations: PLEASE FOLLOW APPROPRIATE ISOLATION PROCEDURES. Culture Observations: called to ER 03-04-22 rojas blanchard Isolate 1 Staphylococcus epidermidis >100,000 cfu/mL of ORGANISM 1 Staphylococcus epidermidis ANTIBIOTIC M.I.C RX STATUS Beta-Lactamase Neg NEG F Benzylpenicillin 0.25 R F Gentamicin <=0.5 S F Ciprofloxacin <=0.5 S F Levofloxacin <=0.12 S F Moxifloxacin <=0.25 S F Inducible Clindamycin Resistance Neg NEG F Quinupristin/Dalfopristin <=0.25 S F Linezolid 2 S F Vancomycin <=0.5 S F Tetracycline 8 I F Nitrofurantoin <=16 S F Rifampicin <=0.5 S F Trimethoprim/Sulfamethoxazole 160 R F Oxacillin <=0.25 R F Normal [facility] Comment on above: Performed By: #### U RCX #### [facility] [address] [place] [address] Dr. Yogi Pascual CBC AUTO DIFFon 03-02-2022 BASO # 0.1 103/ul Normal 0.0-0.1 [facility] Comment on above: Performed By: #### C BC #### [facility] [address] [place] [address] Dr. Yogi Pascual Basophils/100 WBC (Bld) 0.4 % Normal 0.2-2.0 [facility] Comment on above: Performed By: #### C BC #### [facility] [address] [place] [address] Dr. Yogi Pascual EO # 0.5 103/ul Normal 0.0-0.7 [facility] Comment on above: Performed By: #### C BC #### [facility] [address] [place] [address] Dr. Yogi Pascual Eosinophils/100 WBC (Bld) 2.9 % Normal 0.9-7.0 [facility] Comment on above: Performed By: #### C BC #### [facility] [address] [place] [address] Dr. Yogi Pascual Erythrocyte distribution width (RBC) [Ratio] 14.2 % Normal 11.0-15.0 [facility] Comment on above: Performed By: #### C BC #### [facility] [address] [place] [address] Dr. Yogi Pascual Hematocrit (Bld) [Volume fraction] 44.9 % Normal 42.0-54.0 [facility] Comment on above: Performed By: #### C BC #### [facility] [address] [place] [address] Dr. Yogi Pascual Hemoglobin (Bld) [Mass/Vol] 14.9 g/dL Normal 14.0-18.0 [facility] Comment on above: Performed By: #### C BC #### [facility] [address] [place] [address] Dr. Yogi Pascual IG # 0.05 10e3/ul Critically high 0.00-0.03 [facility] Comment on above: Performed By: #### C BC #### [facility] [address] [place] [address] Dr. Yogi Pascual IG % 0.3 % Normal 0.0-0.5 [facility] Comment on above: Performed By: #### C BC #### [facility] [address] [place] [address] Dr. Yogi Pascual LYMPH # 1.3 103/ul Normal 1.2-3.8 [facility] Comment on above: Performed By: #### C BC #### [facility] [address] [place] [address] Dr. Yogi Pascual Lymphocytes/100 WBC (Bld) 8.3 % Critically low 20.5-60.0 [facility] Comment on above: Performed By: #### C BC #### [facility] [address] [place] [address] Dr. Yogi Pascual MANUAL DIFF REQ NO Normal [facility] Comment on above: Performed By: #### C BC #### [facility] [address] [place] [address] Dr. oYgi Pascual MCH (RBC) [Entitic mass] 29.0 pg Normal 25.9-34.0 [facility] Comment on above: Performed By: #### C BC #### [facility] [address] [place] [address] Dr. Yogi Pascual MCHC (RBC) [Mass/Vol] 33.2 g/dL Normal 29.9-35.2 [facility] Comment on above: Performed By: #### C BC #### [facility] [address] [place] [address] Dr. Yogi Pascual MCV (RBC) [Entitic vol] 87.5 fL Normal 80.0-94.0 [facility] Comment on above: Performed By: #### C BC #### [facility] [address] [place] [address] Dr. Yogi Pascual MONO # 1.4 103/ul Critically high 0.3-0.8 [facility] Comment on above: Performed By: #### C BC #### [facility] [address] [place] [address] Dr. Yogi Pascual Monocytes/100 WBC (Bld) 9.4 % Normal 1.7-12.0 [facility] Comment on above: Performed By: #### C BC #### [facility] [address] [place] [address] Dr. Yogi Pascual NEUT # 12.0 103/ul Critically high 1.4-6.5 [facility] Comment on above: Performed By: #### C BC #### [facility] [address] [place] [address] Dr. Yogi Pascual Neutrophils/100 WBC (Bld) 78.7 % Critically high 43.0-75.0 [facility] Comment on above: Performed By: #### C BC #### [facility] [address] [address] [address] Yogi Pascual Platelet mean volume (Bld) [Entitic vol] 9.7 fL Normal 9.5-13.5 [facility] Comment on above: Performed By: #### C BC #### [facility] [address] [address] [address] Yogi Pascual PLT 297 103/ul Normal 150-450 [facility] Comment on above: Performed By: #### C BC #### [facility] [address] [address] [address] Yogi Pascual RBC 5.13 106/ul Normal 4.70-6.10 [facility] Comment on above: Performed By: #### C BC #### [facility] [address] [place] [address] Dr. Yogi Pascual WBC 15.3 103/ul Critically high 4.0-11.0 [facility] Comment on above: Performed By: #### C BC #### [facility] [address] [place] [address] ABD/PELVIS WO CONon 03-02 CT ABD/PELVIS WO CON EXAMINATION: CT ABD/PELVIS WO CON, 03/01/2022 9:42 PM EDT HISTORY: CALCULUS OF KIDNEY hematuria flank pain right side COMPARISON: CT abdomen pelvis 06/18/2020 TECHNIQUE: CT scan of the abdomen and pelvis was performed without IV contrast. CT dose reduction technique was used, including Automated Exposure Control. FINDINGS: Visualized lung bases demonstrate mild bibasilar linear scarring. Cardiac apex unremarkable. Right greater than left lower pleural calcifications and thickening, are chronic and similar to prior exam. Liver, gallbladder, spleen, pancreas, adrenal glands, kidneys, decompressed urinary bladder appendix, and other pelvic structures are unremarkable on this noncontrast exam. No large radiopaque stones or hydroureteronephrosis. Mildly prominent prostate 4.8 cm transverse diameter. Extensive colonic diverticula without diverticulitis. No evidence for small bowel obstruction, large ascites, or free air. Focal 3.0 cm infrarenal abdominal aortic aneurysmal dilation, similar to prior exam. Chronic arthritic changes of the visual skeleton. No acute bony abnormality. IMPRESSION: No large radiopaque stones, hydroureteronephrosis, perinephric fluid collection, or radiopaque urinary bladder stone. Urinary bladder under distended or decompressed. Mild prostatomegaly. Extensive colonic diverticula without diverticulitis. Focal 3.0 cm infrarenal abdominal aortic aneurysmal dilation, similar to prior exam. Electronically authenticated by: LATRICE HUDSON Date: 2022-03-01 23:38 Normal [facility] ER URINE PROFILEon 2 Bilirubin Ql (U) SMALL Abnormal NEGATIVE [facility] Comment on above: Performed By: #### U MICRO, ERUR #### [facility] [address] [place] [address] Dr. Yogi Pascual Clarity (U) CLEAR Normal CLEAR [facility] Comment on above: Performed By: #### U MICRO, ERUR #### [facility] [address] [place] [address] Dr. Yogi Pascual Color (U) YELLOW Normal YELLOW [facility] Comment on above: Performed By: #### U MICRO, ERUR #### [facility] [address] [address] [address] Yogi Pascual ERUTEODOROD A micrscopic examina tion will be performed if indicated. Normal [facility] Comment on above: Performed By: #### U MICRO, ERUR #### [facility] [address] [address] [address] Yogi Pascual Glucose Ql (U) Negative Normal NEGATIVE [facility] Comment on above: Performed By: #### U MICRO, ERUR #### [facility] [address] [address] [address] Yogi Pascual Hemoglobin Ql (U) LARGE Abnormal NEGATIVE [facility] Comment on above: Performed By: #### U MICRO, ERUR #### [facility] [address] [address] [address] Yogi Pascual Ketones Ql (U) Negative Normal NEGATIVE [facility] Comment on above: Performed By: #### U MICRO, ERUR #### [facility] [address] [place] [address] Dr. Yogi Pascual LEUKOCYTES SMALL Abnormal NEGATIVE [facility] Comment on above: Performed By: #### U MICRO, ERUR #### [facility] [address] [place] [address] Dr. Yogi Pascual Nitrite Ql (U) Positive Abnormal NEGATIVE [facility] Comment on above: Performed By: #### U MICRO, ERUR #### [facility] [address] [place] [address] Dr. Yogi Pascual pH (U) 5.0 [pH] Normal 5-9 [facility] Comment on above: Performed By: #### U MICRO, ERUR #### [facility] [address] [place] [address] Dr. Yogi Pascual Protein (U) [Mass/Vol] 100 mg/dL Abnormal NEGATIVE/ TRACE [facility] Comment on above: Performed By: #### U MICRO, ERUR #### [facility] [address] [place] [address] Dr. Yogi Pascual SPEC GRAVITY 1.030 Abnormal 1.005-<=1.02 5 [facility] Comment on above: Performed By: #### U MICRO, ERUR #### [facility] [address] [place] [address] Dr. Yogi Pascual UR MICRO IND INDICATED Normal [facility] Comment on above: Performed By: #### U MICRO, ERUR #### [facility] [address] [place] [address] Dr. Yogi Pascual Urobilinogen Qn (U) 1.0 {Bowen'U}/dL Normal 0.2 - 1.0 [facility] Comment on above: Performed By: #### U MICRO, ERUR #### [facility] [address] [place] [address] Dr. Yogi Pascual PROF CHEM 8 (BAS METB)on Anion gap [Moles/Vol] 15.5 mmol/L Normal [facility] Comment on above: Performed By: #### B MP #### [facility] [address] [place] [address] Dr. Yogi Pascual Calcium [Mass/Vol] 9.7 mg/dL Normal 8.5-10.1 [facility] Comment on above: Performed By: #### B MP #### [facility] [address] [address] [address] Yogi Pascual Chloride [Moles/Vol] 107 mmol/L Normal 98-107 [facility] Comment on above: Performed By: #### B MP #### [facility] [address] [address] [address] Yogi Pascual CO2 [Moles/Vol] 22.4 mmol/L Normal 22.0-30.0 [facility] Comment on above: Performed By: #### B MP #### [facility] [address] [place] [address] Dr. Yogi Pascual Creatinine [Mass/Vol] 1.91 mg/dL Critically high 0.66-1.25 [facility] Comment on above: Performed By: #### B MP #### [facility] [address] [place] [address] Dr. Yogi Pascual EGFR-AF GUYANESE 42 mL/min/1.73m2 Critically low >=60 [facility] Comment on above: Performed By: #### B MP #### [facility] [address] [place] [address] Dr. Yogi Pascual EGFR-NON AF GUYANESE 35 mL/min/1.73m2 Critically low >=60 [facility] Comment on above: Performed By: #### B MP #### [facility] [address] [place] [address] Dr. Yogi Pascual Glucose [Mass/Vol] 113 mg/dL Critically high 74-106 [facility] Comment on above: Performed By: #### B MP #### [facility] [address] [place] [address] Dr. Yogi Pascual Potassium [Moles/Vol] 3.9 mmol/L Normal 3.4-5.0 [facility] Comment on above: Performed By: #### B MP #### [facility] [address] [place] [address] Dr. Yogi Pascual Sodium [Moles/Vol] 141 mmol/L Normal 137-145 [facility] Comment on above: Performed By: #### B MP #### [facility] [address] [place] [address] Dr. Yogi Pascual Urea nitrogen [Mass/Vol] 26.0 mg/dL Critically high 7.0-18.0 [facility] Comment on above: Performed By: #### B MP #### [facility] [address] [address] [address] Yogi Pascual Urea nitrogen/Creatini ne [Mass ratio] 13.6 mg/mg Normal [facility] Comment on above: Performed By: #### B MP #### [facility] [address] [place] [address] Dr. Yogi Pascual URINE MICROSCOPIC ONLYon BACTERIA SMALL Abnormal NONE SEEN [facility] Comment on above: Performed By: #### U MICRO, ERUR #### [facility] [address] [place] [address] Dr. Yogi Pascual Bacteria identified Cx Nom (U) INDICATED Normal [facility] Comment on above: Performed By: #### U MICRO, ERUR #### [facility] [address] [place] [address] Dr. Yogi Pascual CAST NONE SEEN Normal NONE SEEN [facility] Comment on above: Performed By: #### U MICRO, ERUR #### [facility] [address] [place] [address] Dr. Yogi Pascual Crystals LM Nom (Urine sed) NONE SEEN Normal NONE SEEN [facility] Comment on above: Performed By: #### U MICRO, ERUR #### [facility] [address] [place] [address] Dr. Yogi Pascual Epithelial cells LM Ql (Urine sed) NONE SEEN Normal NONE SEEN /RARE [facility] Comment on above: Performed By: #### U MICRO, ERUR #### [facility] [address] [place] [address] Dr. Yogi Pascual MUCOUS NONE SEEN Normal NONE SEEN [facility] Comment on above: Performed By: #### U MICRO, ERUR #### [facility] [address] [place], [place] [address] Dr. Yogi Pascual RBC 75-100 Abnormal 0-2 [facility] Comment on above: Performed By: #### U MICRO, ERUR #### [facility] [address] [place], [place] [address] Dr. Yogi Pascual WBC 10-20 Abnormal NONE SEEN [facility] Comment on above: Performed By: #### U MICRO, ERUR #### [facility] [address] [id number] Yogi Pascual MRI LSPINE WO CONon 09-07-20 21 MRI LSPINE WO CON EXAMINATION: MRI LSP INE WO CON HISTORY: Degeneration of lumbar intervertebral disc ; Chronic lumbar spine and right hip pain COMPARISON: No relevant comparison available. TECHNIQUE: A variety of imaging planes and parameters were utilized for visualization of suspected pathology. FINDINGS: For the purposes of numbering, sagittal T2 image # 8 extends from the T11-12 vertebral body superiorly to the S2 level inferiorly. PARASPINAL AREA: Normal with no visible mass. BONES: No fracture, pars defect, or osseous lesion. CORD/CAUDA EQUINA: Normal caliber, contour, and signal intensity. DISC LEVELS: 12-L1: Early degenerative disc disease is present without focal protrusion or neural impingement. L1-L2: Mild central canal and bilateral foramen narrowing secondary to mild diffuse disc bulging, tiny left paracentral disc protrusion, and mild disc height reduction. Mild degenerative facet arthropathy and ligamentum flavum thickening. L2-L3: Mild-moderate central canal and foramen narrowing bilaterally. Moderate diffuse disc bulging with mild disc height reduction. Mild degenerative facet arthropathy and ligamentum flavum thickening. L3-L4: Mild central canal and moderate foramen narrowing bilaterally. Moderate diffuse disc bulging with mild disc height reduction. Moderate degenerative facet arthropathy bilaterally. L4-L5: Moderate central canal narrowing. Marked left, moderate-marked right foramen narrowing. Marked diffuse disc bulging with mild disc height reduction. Marked degenerative facet arthropathy bilaterally. L5-S1: Mild central canal. Moderate-marked foramen narrowing bilaterally. Moderate diffuse disc bulging with mild disc height reduction posteriorly. Marked facet arthropathy, right greater than left. IMPRESSION: 1. Moderate-marked foramen narrowing L4-5, L5-S1 secondary to degenerative disc disease and facet arthropathy. 2. Moderate central canal narrowing L4-5 and likely impingement of the descending L5 nerve roots between the bulging disc and facet joints. 3. Multilevel degenerative changes. Electronically authenticated by: STACEY BILLS Date: 2021-09-07 14:15 Normal [facility] Encounters Encounter Date Encounter Type Care Provider Facility Start: 03-21-2024 End: 04-20-2024 ambulatory DG BALDWIN [facility] Start: 02-15-2024 End: 03-20-2024 ambulatory DG BALDWIN [facility] Start: 11-14-2023 End: 11-15-2023 [facility]ulatory [facility] Start: 11-14-2023 End: 11-14-2023 Patient encounter procedure Daniel RHODESL [facility] Start: 11-01-2023 End: 11-02-2023 ambulatory Daniel RHODESL Facility:[id number] Start: 10-10-2023 End: 10-11-2023 ambulatory Daniel RHODESL Facility: [facility] Start: 09-07-2023 ambulatory Daniel HILL Facility:[facility] Start: 03-01-2022 End: 03-02-[address] MARIS BROWN Facility:[facility] Start: 09-07-2021 End: 09-08-[address] DG BALDWIN Facility:[facility] Procedures Date Procedure Procedure Detail Performing Clinician Start: 11-01-2023 Colonoscopy Daniel NILL Start: 06-05-2020 Colonoscopy Daniel NILL Start: 12-03-2015 Transurethral prostatectomy Daniel NILL Start: 11-17-2015 Cystoscopy Daniel NILL Start: 08-20-2015 Esophagogastroduodenoscopy Daniel NILL Start: 11-02-2011 Cystoscopy Daniel NILL Start: 11-21-2008 Cystoscopic laser lithotripsy of ureteric calculus Daniel HILL Start: 05-13-2008 Laser ablation of prostate Daniel HILL Start: 12-29-2005 Urodynamic studies Daniel HILL Start: 12-06-2005 Cystoscopy Daniel HILL Start: 11-20-2003 Colonoscopy Daniel HILL Start: 11-20-1996 Colonoscopy Daniel RHODESL Cardiac catheterization Alexander aecamille RHODESL Carotid endarterectomy Quique HILL Immunizations Immunization Date Immunization Notes Care Provider [facility] 08-20-2023 influenza virus vaccine, unspecified formulation Daniel HILL [facility] [place] 01-27-2021 SARS-CoV-2 (COVID-19 ) mRNA-1273 vaccine Daniel HILL [facility] 12-30-2020 SARS-CoV-2 (COVID-19 ) mRNA-1273 vaccine Daniel RHODESL [facility] Payers Date Payer Category Payer Medicare [id number] 1957 Unknown [id number] 1945 Unknown [id number] 2.16.84 [id number] 1945 Unknown [id number] 2.16.84 [id number] 1945 Unknown [id number] 2.16.8 [id number] 1945 Unknown [id number] 2.16.8 [id number] 1945 Unknown [id number] 2.16.8 [id number] 1945 Unknown [id number] 2.16.8 [id number] 1945 Unknown [id number] 2.16.8 [id number] Social History Date Type Detail Facility Start: 10-10-2023 Tobacco smoking status Ex-smoker (fi nding) [facility] [place] Tobacco smoking status Never [facility] [place] Sex Assigned At Male [facility] Clinical Note 10-10-2023 Note Date & Type Note Facility 10-10-2023 Note Chief Complaint consultation for positive Cologuard HPI Staff 78 year old male presents on consultation from Dr. Baldwin for positive Cologuard. Last colonoscopy completed 05/2020 with large amount of stool in colon. Denies abdominal or rectal pain. No rectal bleeding or change in bowel habits. Denies nausea or vomiting. No unexplained weight loss. No known family history of colon cancer. History of Present Illness 78 yo male with h/o CAD, htn, DMII, hyperlipidemia, aortic aneurysm, carotid atherosclerosis, JASPAL, OSWALDO, GERD, BPH, PTSD, referred for positive Cologuard; last colonoscopy 2019, incomplete, only able to get to 50 cm due to poor prep; severe diverticulosis noted; patient denies abd pain or blood in stools, no abd complaints; no abd operations; no asa or NSAID use, no SBE prophylaxis, no fmhx of GI malignancy or IBD; no tobacco use. Review of Systems PHQ Score Initial Depression Screen Score: 0 SCORE ROS - Provider Constitutional: no fever, no sweats, no weight loss. Eyes: yes glasses, no blurred vision, no visual loss. ENMT: no dentures, no hoarseness, no swallowing difficulties, no hearing loss, no ear infection(s), no nose bleeds. Cardiovascular: normal blood pressure, no chest pain, regular heartbeat, no heart murmur. Respiratory: no shortness of breath, no cough, no asthma, no wheezing. Gastrointestinal: no nausea, no vomiting, no diarrhea, no constipation, no blood in stool, no change in bowel habits, no abdominal pain, no hepatitis. Genitourinary: no kidney stones, no urine infection, no dysuria. Musculoskeletal: no pain, no weakness. Skin: no changing moles, no rash, no skin lumps. Neurologic: no seizures, no epilepsy, no headache. Psychiatric: no emotional or psychiatric problem. Heme/Lymph: no bleeding problems, no anemia, no blood clots, no transfusions. Allergy/Immunologic: no swollen lymph nodes/glands, no IV drug abuse. Other: Additional ROS info: Except as noted in the above Review of Systems and in the History of Present Illness, all other systems have been reviewed and are negative or noncontributory. Physical Exam Vitals & Measurements HR: 72(Peripheral) RR: 16 BP: 118/72 HT: 76 in HT: 193 cm WT: 106 kg WT: 233.2 lb BMI: 28.46 HEENT: normal conjunctiva, sclera clear, no scleral icterus, EOM intact, PERRLA, oral mucosa moist without lesions. Neck: trachea midline, no mass, symmetric, no thyromegaly or nodules, no adenopathy Respiratory: lungs CTA, respirations non labored. Cardiovascular: regular rate and rhythm, no murmur, no pedal edema or varicosities. Gastrointestinal: obese, soft, non distended, no tenderness, no masses, no palpable hernias, diastasis recti no, no hepatosplenomegaly; normal bs Lymphatic: no cervical adenopathy, no supraclavicular adenopathy. Musculoskeletal: normal gait, digits and nails without infection, nodes, cyanosis, clubbing. Skin: no rashes, no lesions, no ulcers, no subcutaneous nodules, induration. Psychiatric/Neuro: oriented to time, place, person, judgement normal, affect appropriate for age, insight intact, no focal deficits. Tests: , review of old records completed , Discussed surgical options, risks, and possible complications with patient. Assessment/Plan 1. Positive colorectal cancer screening using Cologuard test (R19.5: Other fecal abnormalities) plan colonoscopy under anesthesia, informed consent obtained. Follow-up No qualifying data available Problem List/Past Medical History Ongoing Aortic aneurysm BMI 28.0-28.9,adult BPH with urinary obstruction Carotid atherosclerosis Depressive disorder Diverticulosis Former smoker Generalized anxiety disorder GERD (gastroesophageal reflux disease) Heart failure History of kidney stones Hyperlipidemia Hypertension Impotence Incomplete bladder emptying Microscopic hematuria Nephrolithiasis Nocturia JASPAL (obstructive sleep apnea) Overweight Positive colorectal cancer screening using Cologuard test Prostatitis PTSD (post-traumatic stress disorder) Type 2 diabetes mellitus controlled by diet Urge incontinence Urinary frequency Urinary urgency Historical Anticoagulated Procedure/Surgical History Colonoscopy (06/05/2020), TURP - Transurethral resection of prostate (12/03/2015), Cystoscopy (11/17/2015), EGD - esophagogastroduodenoscopy (08/2015), Cystoscopy (11/02/2011), Cystoscopic laser lithotripsy of ureteric calculus (11/21/2008), Laser ablation of prostate (05/13/2008), Urodynamics (12/29/2005), Cystoscopy (12/06/2005), Colonoscopy (2003), Colonoscopy (1996), Cardiac catheterization, Carotid endarterectomy. Medications buPROPion 150 mg/24 hours XL Tab, 450 mg= 3 tab(s), Oral, Daily Centrum Silver, Oral, Daily doxepin Entresto 24 mg-26 mg oral tablet, 1 tab(s), Oral, BID finasteride 5 mg Tab, 5 mg= 1 tab(s), Oral, Daily folic acid 1 mg Tab, 2 mg= 2 tab(s), Oral, Daily magnesium oxide 400 mg Tab, 400 mg= 1 tab(s), Oral, Daily MiraLax, 17 (more content not included)... [facility] Comment on above: Result Comment: Elec tronically Signed By: SERGIO LAMA, Daniel [email or web address]\Date and Time Signed: 10/10/23 16:09 EST Evaluation + Plan note Note Date & Type Note Facility Evaluation + Plan note No data available for this section General [facility] Discharge instructions Note Date & Type Note Facility Hospital Discharge instructions No data available for this section [facility] Progress note Note Date & Type Note Facility Progress note No data available for this section [facility] Summary Purpose Family History No Family History Records Found No data available for this section No Family History Records FoundNo Family History Records Found Advance Directives No Advanced Directives Records FoundNo Advanced Directives Records FoundNo Advanced Directives Records Found Additional Source Comments (unrecognized sect ion and content) No Status Records FoundNo Status Records FoundNo Status Records Found INFORMATION SOURCE (unrecogn ized section and content) DATE CREATED AUTHOR 03/04/2022 [facility] DATE CREATED AUTHOR AUTHOR'S ORGANIZ ATION 11/16/2023 [facility] DATE CREATED AUTHOR AUTHOR'S ORGANIZ ATION 04/21/2024 [facility] Patient Care team informatio n (unrecognized section and content) Personnel Name: DG BALDWIN JR, DO Address: Address: [address] [place] [id number] US FOR RECORDS PERTAINING TO PATIENTS WHO ARE OR HAVE BEEN ENROLLED IN A CHEMICAL DEPENDENCY/SUBSTANCEABUSE PROGRAM, SOME INFORMATION MAY BE OMITTED. This clinical summary was aggregated from multiple sources. Caution should be exercised in using it in the provision of clinical care. This summary normalizes information from multiple sources, and as a consequence, information in this document may materially change the coding, format and clinical context of patient data. In addition, data may be omitted in some cases. CLINICAL DECISIONS SHOULD BE BASED ON THE PRIMARY CLINICAL RECORDS. [facility] [employer] provides no warranty or guarantee of the accuracy or completeness of information in this document.
[2024-09-07 09:44] LABS: Basophils Absolute Auto 0.1 10^3/uL (0.0-0.1); Eosinophils Absolute Auto 0.7 10^3/uL (0.0-0.7); Eosinophils Percent Auto 7.5 % (0.9-7.0); Hemoglobin 14.1 g/dL (14.0-18.0); Immature Granulocytes Abs Auto 0.02 10^3/uL (0.00-0.03); Immature Granulocytes Pct Auto 0.2 % (0.0-0.5); Lymphocytes Absolute Auto 1.2 10^3/uL (1.2-3.8); Mean Corpuscular HGB Conc 32.8 g/dL (29.9-35.2); Mean Corpuscular Hemoglobin 29.2 pg (25.9-34.0); Mean Platelet Volume 9.8 fL (9.5-13.5); Monocytes Absolute Auto 0.9 10^3/uL (0.3-0.8); Monocytes Percent Auto 9.4 % (1.7-12.0); Neutrophils Absolute Auto 6.9 10^3/uL (1.4-6.5); Neutrophils Percent Auto 69.9 % (43.0-75.0); Platelet Count 273 10^3/uL (150-450); Red Blood Count 4.83 10^6/uL (4.70-6.10); Red Cell Distribution Width 12.5 % (11.0-15.0); White Blood Count 9.8 10^3/uL (4.0-11.0)
[2024-09-07] MEDS: KETOROLAC TROMETHAMINE 30 MG/ML VIAL 15 MG IVP (09:46)
[2024-09-07 10:00] LABS: Alanine Aminotransferase 16 U/L (16-63); Albumin Globulin Ratio 1.1; Albumin Level 3.5 g/dL (3.4-5.0); Alkaline Phosphatase 102 U/L (46-116); Aspartate Amino Transferase 13 U/L (15-37); BUN Creatinine Ratio 11.5; Bilirubin Total 0.4 mg/dL (0.2-1.0); Calcium 9.4 mg/dL (8.5-10.1); Carbon Dioxide 24.4 mmol/L (21.0-32.0); Chloride 107 mmol/L (98-107); Estimated GFR (African America 42 (>=60 mL/min/1.73m^2); Estimated GFR (Non-African Ame 34 (>=60 mL/min/1.73m^2); Globulin 3.3 g/dL; Glucose 125 mg/dL (74-106); Potassium 4.4 mmol/L (3.5-5.1); Sodium 144 mmol/L (136-145); Total Protein 6.8 g/dL (6.4-8.2)
[2024-09-07 10:20] LABS: Bilirubin Urine NEGATIVE (NEGATIVE); Blood Urine LARGE (NEGATIVE); Clarity Urine CLEAR (CLEAR); Color Urine LT. YELLOW (YELLOW); Glucose Urine UA NEGATIVE (NEGATIVE); Ketones Urine NEGATIVE (NEGATIVE); Leukocyte Esterase Urine NEGATIVE (NEGATIVE); Nitrite Urine NEGATIVE (NEGATIVE); Protein Urine TRACE mg/dL (NEG/TRACE); Specific Gravity Urine 1.015 (1.005-1.025); Urobilinogen Urine 0.2 EU/dL (0.2-1.0); pH Urine 6.5 (5.0-9.0)
[2024-09-07 10:23] LABS: Urine Microscopic Indicated YES
[2024-09-07 10:27] LABS: RBC Urine 20-50 #/HPF (0-2); WBC Urine NONE SEEN #/HPF (NONE SEEN)
[2024-09-07 10:28] LABS: Bacteria Urine TRACE #/HPF (NONE SEEN); Cast Seen? NONE SEEN #/LPF (NONE SEEN); Crystals Seen? None Seen #/HPF (None Seen); Mucus Urine TRACE (NONE SEEN); Squamous Epithelial Cell Urine RARE #/LPF (NONE/RARE); Urine Culture Indicated NO
== END 2024-09-07 11:57 | disposition home or self-care (01) ==
PROVIDERS: Emergency Provider Emergency Medicine; PCP Internal Medicine
DX: N13.2 Hydronephrosis with renal and ureteral calculous obstruction (principal); Z87.442 Personal history of urinary calculi; Z87.891 Personal history of nicotine dependence; N17.9 Acute kidney failure, unspecified; N18.9 Chronic kidney disease, unspecified
CPT/HCPCS: 36415; 74176; 80053; 81001; 85025; 96374; 99285; J1885

== ENCOUNTER 2024-09-10 19:47 | Emergency (ER) | payer MEDICARE, OTHER, SELFPAY ==
[2024-09-10 20:00] VITALS: BP 154/104; PULSE 85; TEMP 36.5; O2SAT 94; BMI 32.1
--- NOTE | 2024-09-10 20:05 | ED_ITS ---
HPI HPI - General Adult General Chief complaint: Urogenital-Male Stated complaint: KIDNEY STONE Time Seen by Provider: 09/10/24 20:00 Source: patient Mode of arrival: walk-in History of Present Illness HPI narrative: Patient is a 79-year-old male who returns to the emergency department for continued pain in the left lower quadrant. He was seen in this emergency department 3 days ago and diagnosed with a 6.5 mm stone. He states he took Tylenol prior to arrival. He has had no fevers or vomiting. He has had no nausea or vomiting. He has had multiple kidney stones in the past that were able to pass on their own, he has never needed a procedure to remove his stone. He states his primary concern was that the stone has not passed yet which prompted him to come to the ER. Per documentation from his emergency room visit 3 days ago, he was supposed to follow-up with Dr. David for urology yesterday although he states he did not. He states he has not needed to take on narcotic pain medication at home and then also states that he came back to the ER tonight because it hurts like hell . He denies any urinary changes. Related Data Home Medications ?Medication ?Instructions ?Recorded ?Confirmed bupropion HCl 450 mg 24 hr tablet, 450 mg PO DAILY 10/24/23 11/01/23 extended release doxepin 10 mg capsule 10 mg PO BID 10/24/23 11/01/23 ertugliflozin 5 mg tablet 5 mg PO DAILY 10/24/23 11/01/23 (Steglatro) ezetimibe 10 mg tablet (Zetia) 5 mg PO DAILY 10/24/23 11/01/23 finasteride 5 mg tablet 5 mg PO DAILY 10/24/23 11/01/23 folic acid 1 mg tablet 1 mg PO DAILY 10/24/23 11/01/23 magnesium oxide 400 mg PO DAILY 10/24/23 11/01/23 montelukast 10 mg tablet 10 mg PO DAILY 10/24/23 11/01/23 [id number] acid 0.4 1 tab PO DAILY 10/24/23 11/01/23 mg-lycopene 300 mcg-lutein 250 mcg tablet (Centrum Silver) nabumetone 500 mg tablet 500 mg PO BID 10/24/23 11/01/23 omeprazole 40 mg capsule,delayed 40 mg PO DAILY 10/24/23 11/01/23 release polyethylene glycol 3350 17 17 g PO BID 10/24/23 11/01/23 gram/dose oral powder (Miralax) potassium citrate 10 mEq (1,080 10 meq PO DAILY 10/24/23 11/01/23 mg) tablet,extended release rosuvastatin 20 mg tablet (Crestor) 20 mg PO DAILY 10/24/23 11/01/23 sacubitril 24 mg-valsartan 26 mg 1 tab PO BID 10/24/23 11/01/23 tablet (Entresto) Previous Rx's ?Medication ?Instructions ?Recorded doxycycline hyclate 100 mg tablet 100 mg PO BID 7 days #14 tabs 09/07/24 tamsulosin 0.4 mg capsule (Flomax) 0.4 mg PO DAILY #10 caps 09/07/24 Allergies Allergy/AdvReac Type Severity Reaction Status Date / Time Penicillins Allergy Severe Unknown Verified 09/10/24 20:06 codeine Allergy Intermediate Unknown Verified 09/10/24 20:06 quinapril (From Accupril) Allergy Intermediate Unknown Verified 09/10/24 20:06 Sulfa (Sulfonamide Allergy Intermediate Unknown Verified 09/10/24 20:06 Antibiotics) Opioid HPI Opioid Management Most Recent Opioid Data: No Data to Display Review of Systems ROS Constitutional Denies: fever or chills Ears, nose, mouth, and throat Denies: throat pain Respiratory Denies: shortness of breath Gastrointestinal Reports: abdominal pain; Denies: nausea or vomiting Genitourinary Denies: painful urination or urinary frequency Integumentary/Breast Denies: rash Neurological Denies: numbness in extremities or weakness in extremities Hematologic/Lymphatic Denies: easy bruising or easy bleeding [facility] Medical History (Updated 09/10/24 @ 21:43 by ROBERT Montesinos) Abnormal cystoscopy ?R39.9 - Unspecified symptoms and signs involving the genitourinary system (ICD-10) Kidney stones ?N20.0 - Calculus of kidney (ICD-10) Carotid atherosclerosis ?I65.29 - Occlusion and stenosis of unspecified carotid artery (ICD-10) BPH (benign prostatic hyperplasia) ?N40.0 - Benign prostatic hyperplasia without lower urinary tract symptoms (ICD-10) Surgical History (Updated 10/27/23 @ 15:17 by Gardenia Hall) History of cystoscopy ?Z98.890 - Other specified postprocedural states (ICD-10) History of lithotripsy ?Z98.890 - Other specified postprocedural states (ICD-10) History of esophagogastroduodenoscopy (EGD) ?Z98.890 - Other specified postprocedural states (ICD-10) History of colonoscopy ?Z98.890 - Other specified postprocedural states (ICD-10) History of carotid endarterectomy ?Z98.890 - Other specified postprocedural states (ICD-10) History of cardiac cath ?Z98.890 - Other specified postprocedural states (ICD-10) S/P TURP ?Z90.79 - Acquired absence of other genital organ(s) (ICD-10) Family History (Updated 10/24/23 @ 10:12 by Gardenia Dominguez) Other Family history of cancer Social History Within the past year, how often did you have a drink containing alcohol: never Score interpretation: A score less than 4 is consistent with normal alcohol consumption. Smoking status: Former smoker Non-prescribed substance use: denies use Previous occupational history: retired Highest level of school completed/degree received: 10th grade Little interest or pleasure in doing things: not at all Feeling down, depressed, or hopeless: not at all Exam Narrative Exam Narrative: Gen.: Awake, alert, in no distress Head: Normocephalic, atraumatic ENT: Moist mucous membranes Respiratory: No respiratory distress Gastrointestinal: Abdomen is soft, nondistended and mildly tender to palpation in the left lower quadrant Extremities: Moves extremities equally Psych: Normal mood and affect Neuro: No focal neuro deficit Skin: Warm, dry, intact Constitutional Vital Signs, click to edit/add: Last Vital Signs Temp 97.7 F 09/10/24 20:00 Pulse 85 09/10/24 20:00 Resp 16 09/10/24 20:00 BP 154/104 H 09/10/24 20:00 Pulse Ox 94 L 09/10/24 20:00 O2 Del Method Room Air 09/10/24 20:00 Course Vital Signs Vital signs: Vital Signs Temperature 97.7 F 09/10/24 20:00 Pulse Rate 85 09/10/24 20:00 Respiratory Rate 16 09/10/24 20:00 Blood Pressure 154/104 H 09/10/24 20:00 Pulse Oximetry 94 L 09/10/24 20:00 Oxygen Delivery Method Room Air 09/10/24 20:00 Temperature 97.7 F 09/10/24 20:00 Pulse Rate 85 09/10/24 20:00 Respiratory Rate 16 09/10/24 20:00 Blood Pressure 154/104 H 09/10/24 20:00 Pulse Oximetry 94 L 09/10/24 20:00 Oxygen Delivery Method Room Air 09/10/24 20:00 Medical Decision Making MDM Narrative Medical decision making narrative: 2141: Patient given gentle IV fluids, Dilaudid, Zofran. He has had an increase in his creatinine from 1.9-2.2. His urine specimen with no evidence of blood or infection. CT scan is pending. Case turned over to attending physician for disposition at this time. SHARED APC VISIT, PHYSICIAN ATTESTATION: [id number] I performed a substantive part of the MDM during the patient?s E/M visit. I personally evaluated and examined the patient. I personally made or approved the documented management plan and acknowledge its risk of complications. Medical Records Medical records reviewed: Yes I reviewed the patient's medical records Lab Data Lab results reviewed: Yes I reviewed the patient's lab results Labs: Lab Results 09/10/24 09/10/24 Range/Units 20:15 20:20 WBC 9.8 (4.0-11.0) 10^3/uL RBC 4.83 (4.70-6.10) 10^6/uL Hgb 14.0 (14.0-18.0) g/dL Hct 42.7 (42.0-54.0) % MCV 88.4 (80.0-94.0) fL MCH 29.0 (25.9-34.0) pg MCHC 32.8 (29.9-35.2) g/dL RDW 12.3 (11.0-15.0) % Plt Count 261 (150-450) 10^3/uL MPV 9.7 (9.5-13.5) fL Neut % (Auto) 74.7 (43.0-75.0) % Lymph % (Auto) 8.9 L (20.5-60.0) % Johnston % (Auto) 11.5 (1.7-12.0) % Eos % (Auto) 4.1 (0.9-7.0) % Baso % (Auto) 0.6 (0.2-2.0) % Neut # (Auto) 7.3 H (1.4-6.5) 10^3/uL Lymph # (Auto) 0.9 L (1.2-3.8) 10^3/uL Johnston # (Auto) 1.1 H (0.3-0.8) 10^3/uL Eos # (Auto) 0.4 (0.0-0.7) 10^3/uL Baso # (Auto) 0.1 (0.0-0.1) 10^3/uL Abs Immat Gran (auto) 0.02 (0.00-0.03) 10^3/uL Imm/Tot Granulo (auto) 0.2 (0.0-0.5) % Sodium 140 (136-145) mmol/L Potassium 4.7 (3.5-5.1) mmol/L Chloride 104 (98-107) mmol/L Carbon Dioxide 25.1 (21.0-32.0) mmol/L Anion Gap 15.6 BUN 26.0 H (7.0-18.0) mg/dL Creatinine 2.29 H (0.70-1.30) mg/dL Est GFR ( Amer) 34 L (>=60 mL/min/1.73m^2) Est GFR (Non-Af Amer) 28 L (>=60 mL/min/1.73m^2) BUN/Creatinine Ratio 11.4 Glucose 95 (74-106) mg/dL Lactate 0.8 (0.4-2.0) mmol/L Calcium 9.9 (8.5-10.1) mg/dL Urine Color Lt. yellow (YELLOW) Urine Clarity Clear (CLEAR) Urine pH 6.5 (5.0-9.0) Ur Specific Bishop 1.015 (1.005-1.025) Urine Protein Trace (NEG/TRACE) mg/dL Urine Glucose (UA) Negative (NEGATIVE) mg/dL Urine Ketones Negative (NEGATIVE) mg/dL Urine Occult Blood Negative (NEGATIVE) Urine Nitrite Negative (NEGATIVE) Urine Bilirubin Negative (NEGATIVE) Urine Urobilinogen 1.0 (0.2-1.0) EU/dL Ur Leukocyte Esterase Negative (NEGATIVE) Discharge Plan Discharge Chief Complaint: Urogenital-Male Clinical Impression: Abdominal pain Patient Disposition: Still a Patient Prescriptions / Home Meds: No Action bupropion HCl 450 mg tablet extended release 24 hr 450 mg PO DAILY Centrum Silver 0.4 mg-300 mcg- 250 mcg tablet 1 tab PO DAILY doxepin 10 mg capsule 10 mg PO BID Entresto 24-26 mg tablet 1 tab PO BID finasteride 5 mg tablet 5 mg PO DAILY folic acid 1 mg tablet 1 mg PO DAILY magnesium oxide 400 mg magnesium tablet 400 mg PO DAILY polyethylene glycol 3350 [Miralax] 17 gram/dose powder 17 g PO BID montelukast 10 mg tablet 10 mg PO DAILY nabumetone 500 mg tablet 500 mg PO BID omeprazole 40 mg capsule,delayed release(DR/EC) 40 mg PO DAILY potassium citrate 10 mEq (1,080 mg) tablet extended release 10 meq PO DAILY rosuvastatin [Crestor] 20 mg tablet 20 mg PO DAILY Steglatro 5 mg tablet 5 mg PO DAILY ezetimibe [Zetia] 10 mg tablet 5 mg PO DAILY tamsulosin [Flomax] 0.4 mg capsule 0.4 mg PO DAILY Qty: 10 0RF doxycycline hyclate 100 mg tablet 100 mg PO BID 7 Days Qty: 14 0RF Print Language: Citizen Of [place] Referrals: DG BALDWIN DO [Primary Care Provider] - 1 week
[2024-09-10 20:29] LABS: Basophils Absolute Auto 0.1 10^3/uL (0.0-0.1); Basophils Percent Auto 0.6 % (0.2-2.0); Eosinophils Absolute Auto 0.4 10^3/uL (0.0-0.7); Eosinophils Percent Auto 4.1 % (0.9-7.0); Hematocrit 42.7 % (42.0-54.0); Immature Granulocytes Abs Auto 0.02 10^3/uL (0.00-0.03); Immature Granulocytes Pct Auto 0.2 % (0.0-0.5); Lymphocytes Absolute Auto 0.9 10^3/uL (1.2-3.8); Lymphocytes Percent Auto 8.9 % (20.5-60.0); Mean Corpuscular HGB Conc 32.8 g/dL (29.9-35.2); Mean Corpuscular Volume 88.4 fL (80.0-94.0); Mean Platelet Volume 9.7 fL (9.5-13.5); Monocytes Absolute Auto 1.1 10^3/uL (0.3-0.8); Monocytes Percent Auto 11.5 % (1.7-12.0); Neutrophils Absolute Auto 7.3 10^3/uL (1.4-6.5); Neutrophils Percent Auto 74.7 % (43.0-75.0); Platelet Count 261 10^3/uL (150-450); Red Blood Count 4.83 10^6/uL (4.70-6.10); Red Cell Distribution Width 12.3 % (11.0-15.0); White Blood Count 9.8 10^3/uL (4.0-11.0)
[2024-09-10 20:30] LABS: Bilirubin Urine NEGATIVE (NEGATIVE); Blood Urine NEGATIVE (NEGATIVE); Clarity Urine CLEAR (CLEAR); Color Urine LT. YELLOW (YELLOW); Glucose Urine UA NEGATIVE (NEGATIVE); Ketones Urine NEGATIVE (NEGATIVE); Leukocyte Esterase Urine NEGATIVE (NEGATIVE); Nitrite Urine NEGATIVE (NEGATIVE); Protein Urine TRACE mg/dL (NEG/TRACE); Specific Gravity Urine 1.015 (1.005-1.025); pH Urine 6.5 (5.0-9.0)
[2024-09-10 20:31] LABS: Urine Microscopic Indicated NO
--- NOTE | 2024-09-10 20:31 | CT_ITS ---
[address] [address] Patient Name: SAIDA HOANG MRN: [id number] date: 1945 Sex: M Assigned Patient Location: ED.MAIN Current Patient Location: ED.MAIN Accession/Order Number: [id number] Exam Date: 09/10/2024 20:29 Report Date: 09/10/2024 21:53 At the request of: GHASSAN DINH Procedure: CT abdomen pelvis wo con CT ABDOMEN/PELVIS WITHOUT IV CONTRAST. INDICATION: Hx kidney stone, left lower quad pain COMPARISON: 09/07/2024 TECHNIQUE: Contiguous axial images were obtained from the lung bases to the pelvic floor without intravenous or oral contrast. Coronal and sagittal reformations are provided. FINDINGS: LOWER LUNGS: Redemonstrated calcified bilateral pleural plaques. LIVER/BILIARY TREE: No discrete lesion. No intrahepatic ductal dilatation. GALLBLADDER: No significant gallbladder wall thickening. No radiopaque stone. CBD: Normal CBD. SPLEEN: Normal in size. PANCREAS: No appreciable peripancreatic fluid. No pancreatic ductal dilatation. No discrete lesion. ADRENALS: Normal. KIDNEYS: Essentially stable positioning of the distal left 7 mm ureteral stone resulting in mild hydronephrosis. STOMACH AND BOWEL: Stomach is unremarkable. No dilated bowel loops. No bowel wall thickening. Colonic diverticulosis. APPENDIX: Normal appendix. PERITONEAL CAVITY: No fluid. No fat stranding. ABDOMINAL WALL: No subcutaneous stranding. No subcutaneous fluid collection. LYMPH NODES: No mesenteric or retroperitoneal lymphadenopathy by CT criteria. ABDOMINAL AORTA: No aneurysm. PELVIS: No acute abnormality. MUSCULOSKELETAL: No acute osseous abnormality. CT/CT abdomen pelvis wo con IMPRESSION: Essentially stable positioning of the distal left 7 mm ureteral stone resulting in mild hydronephrosis. Electronically authenticated by: PATRICE IVORY Date: 09/10/2024 21:53
--- OUTSIDE RECORDS SUMMARY | 2024-09-10 20:34 | XMS_ITS | CCD ---
Author Organization [facility] Care Team Providers Care Jacquard Lace Weaver Name Role Phone MARKER, DR POLLOCK Attending Unavailable MARKER, DR POLLOCK Consulting Unavailable VALONE, DR CONTE Primary Care Unavailable MARKER, DR POLLOCK Admitting Unavailable YAROSH, DANIEL Consulting Unavailable HudsonLatrice Consulting Unavailable VALONE, DR CONTE Primary Care Unavailable APLING, DEEPTHI Admitting Unavailable ZIEBER, DR STACEY Esteban Consulting Unavailable APLING, DEEPTHI Attending Unavailable APLING, DEEPTHI Consulting Unavailable VALONE JR, DG Primary Care Physician [phone] Daniel HILL Attending Unavailable VALONE, DG Referring [...] / oxyCODONE Drug Allergy 03-01-20 22 [facility] Repository (1 source) Clarithromycin Drug Allergy 08-26-20 15 [facility] (3 sources) Codeine; Translations: [codeine] Drug Allergy 08-26-20 15 [facility] (1 source) cyclobenzaprine Drug Allergy [facility] (1 source) Lincomycin Drug Allergy [facility] (2 sources) Penicillins; Translations: [PENICILLINS] Drug allergy (disorder) 08-26-20 15 [facility] (2 sources) quinapril; Translations: [Accupril] Drug Allergy 08-26-20 15 [facility] (1 source) Sertraline Drug Allergy [facility] (1 source) Sulfonamides (Antibiotic) Drug allergy (disorder) 11-24-19 16 [facility] Rep[facility] (1 source) Codeine; Translations: [codeine] Drug Allergy Unknown (qualifier value) [facility] (2 sources) Penicillin; Translations: [penicillin] Drug Allergy [facility] (1 source) quinapril; Translations: [quinapril] Drug Allergy Unknown (qualifier value) [facility] (2 sources) Sulfamethoxazole; Translations: [sulfamethoxazole] Drug Allergy Eruption (morphologic abnormality) [facility] (1 source) Clarithromycin; Translations: [clarithromycin] Drug Allergy [facility] Repository (1 source) Acetaminophen / oxyCODONE; Translations: [...] 10-04-2023 Chronic Other aftercare (1 source) Other group home (current) drug therapy; Translations: [OTH PTA CURRENT DRUG THERAPY] Onset: 03-04-2022 Episodic Other [...] us for your care. Donald Lu [facility] General Surgery Office/Clini c Noteon 11-14-2023 [...] SARS-CoV-2 (COVID-19) mRNA-1273 vaccine 12/30/2020 Recorded Normal [facility] Comment on above: Result Comment: Elec tronically Signed By: SERGIO LAMA, Daniel Araujo\Date and Time Signed: 11/14/23 14:42 EST Reminderson 11-14-2023 Reminders - From: Karly Workman LPN To: N - Clinical; Sent: 11/14/2023 15:07:51 EST Show up: 10/02/2028 07:00:00 EST Subject: colonoscopy recall Due Date/Time: 11/01/2028 07:00:00 EST Reminder/Recall Patient due for surveillance colonoscopy 11/01/2028 due to history of tubular adenoma. Normal [facility] Outside Colonoscopyon 2022 Outside Colonoscopy [id number]#[id number] Normal [facility] Pathology Noteon 11-07-2023 Pathology Note [id number]#1.00TIFF Normal [facility] Consent for Procedure/Surger yon 10-11-2023 Consent for Procedure/Surgery [id number]#1.00TIFF Normal [facility] Facesheeton 10-11-2023 Facesheet [id number]#1.00TIFF Normal [facility] Ambulatory Visit Summaryon 1 12-10-2022 Ambulatory Visit [...] for choosing us for your care. Normal [facility] Physician Referralon 023 Physician Referral [id number]#[id number] Normal [facility] CULTURE URINEon 03-04-2022 CULTURE URINE Culture Observations [...] F Oxacillin <=0.25 R F Normal [facility] Comment on above: Performed By: #### U RCX #### [facility] [address] [place] [address] Dr. Yogi Pascual CBC AUTO DIFFon 03-02-2022 BASO # 0.1 103/ul Normal 0.0-0.1 [facility] Comment on above: Performed By: #### C BC #### [facility] [address] [place] [address] Dr. Yogi Pascual Basophils/100 WBC (Bld) 0.4 % Normal 0.2-2.0 [facility] Comment on above: Performed By: #### C BC #### [facility] [address] [place] [address] Dr. Yogi Pascual EO # 0.5 103/ul Normal 0.0-0.7 [facility] Comment on above: Performed By: #### C BC #### [facility] [address] [place] [address] Dr. Yogi Pascual Eosinophils/100 WBC (Bld) 2.9 % Normal 0.9-7.0 [facility] Comment on above: Performed By: #### C BC #### [facility] [address] [place] [address] Dr. Yogi Pascual Erythrocyte distribution width (RBC) [Ratio] 14.2 % Normal 11.0-15.0 [facility] Comment on above: Performed By: #### C BC #### [facility] [address] [place] [address] Dr. Yogi Pascual Hematocrit (Bld) [Volume fraction] 44.9 % Normal 42.0-54.0 [facility] Comment on above: Performed By: #### C BC #### [facility] [address] [place] [address] Dr. Yogi Pascual Hemoglobin (Bld) [Mass/Vol] 14.9 g/dL Normal 14.0-18.0 [facility] Comment on above: Performed By: #### C BC #### [facility] [address] [place] [address] Dr. Yogi Pascual IG # 0.05 10e3/ul Critically high 0.00-0.03 [facility] Comment on above: Performed By: #### C BC #### [facility] [address] [place] [address] Dr. Yogi Pascual IG % 0.3 % Normal 0.0-0.5 [facility] Comment on above: Performed By: #### C BC #### [facility] [address] [place] [address] Dr. Yogi Pascual LYMPH # 1.3 103/ul Normal 1.2-3.8 [facility] Comment on above: Performed By: #### C BC #### [facility] [address] [place] [address] Dr. Yogi Pascual Lymphocytes/100 WBC (Bld) 8.3 % Critically low 20.5-60.0 [facility] Comment on above: Performed By: #### C BC #### [facility] [address] [place] [address] Dr. Yogi Pascual MANUAL DIFF REQ NO Normal [facility] Comment on above: Performed By: #### C BC #### [facility] [address] [place] [address] Dr. Yogi Pascual MCH (RBC) [Entitic mass] 29.0 pg Normal 25.9-34.0 [facility] Comment on above: Performed By: #### C BC #### [facility] [address] [place] [address] Dr. Yogi Pascual MCHC (RBC) [Mass/Vol] 33.2 g/dL Normal 29.9-35.2 [facility] Comment on above: Performed By: #### C BC #### [facility] [address] [place] [address] Dr. Yogi Pascual MCV (RBC) [Entitic vol] 87.5 fL Normal 80.0-94.0 [facility] Comment on above: Performed By: #### C BC #### [facility] [address] [place] [address] Dr. Yogi Pascual MONO # 1.4 103/ul Critically high 0.3-0.8 [facility] Comment on above: Performed By: #### C BC #### [facility] [address] [place] [address] Dr. Yogi Pascual Monocytes/100 WBC (Bld) 9.4 % Normal 1.7-12.0 [facility] Comment on above: Performed By: #### C BC #### [facility] [address] [place] [address] Dr. Yogi Pascual NEUT # 12.0 103/ul Critically high 1.4-6.5 [facility] Comment on above: Performed By: #### C BC #### [facility] [address] [place] [address] Dr. Yogi Pascual Neutrophils/100 WBC (Bld) 78.7 % Critically high 43.0-75.0 [facility] Comment on above: Performed By: #### C BC #### [facility] [address] [address] [address] Yogi Pascual Platelet mean volume (Bld) [Entitic vol] 9.7 fL Normal 9.5-13.5 [facility] Comment on above: Performed By: #### C BC #### [facility] [address] [address] [address] Yogi Pascual PLT 297 103/ul Normal 150-450 [facility] Comment on above: Performed By: #### C BC #### [facility] [address] [address] [address] Yogi Pascual RBC 5.13 106/ul Normal 4.70-6.10 [facility] Comment on above: Performed By: #### C BC #### [facility] [address] [place] [address] Dr. Yogi Pascual WBC 15.3 103/ul Critically high 4.0-11.0 [facility] Comment on above: Performed By: #### C BC #### [facility] [address] [place] [address] ABD/PELVIS WO CONon [...] LATRICE HUDSON Date: 2022-03-01 23:38 Normal [facility] ER URINE PROFILEon 2 Bilirubin Ql (U) SMALL Abnormal NEGATIVE [facility] Comment on above: Performed By: #### U MICRO, ERUR #### [facility] [address] [place] [address] Dr. Yogi Pascual Clarity (U) CLEAR Normal CLEAR [facility] Comment on above: Performed By: #### U MICRO, ERUR #### [facility] [address] [place] [address] Dr. Yogi Pascual Color (U) YELLOW Normal YELLOW [facility] Comment on above: Performed By: #### U MICRO, ERUR #### [facility] [address] [address] [address] Yogi Pascual ERUTEODOROD A micrscopic examina tion will be performed if indicated. Normal [facility] Comment on above: Performed By: #### U MICRO, ERUR #### [facility] [address] [address] [address] Yogi Pascual Glucose Ql (U) Negative Normal NEGATIVE [facility] Comment on above: Performed By: #### U MICRO, ERUR #### [facility] [address] [address] [address] Yogi Pascual Hemoglobin Ql (U) LARGE Abnormal NEGATIVE [facility] Comment on above: Performed By: #### U MICRO, ERUR #### [facility] [address] [address] [address] Yogi Pascual Ketones Ql (U) Negative Normal NEGATIVE [facility] Comment on above: Performed By: #### U MICRO, ERUR #### [facility] [address] [place] [address] Dr. Yogi Pascual LEUKOCYTES SMALL Abnormal NEGATIVE [facility] Comment on above: Performed By: #### U MICRO, ERUR #### [facility] [address] [place] [address] Dr. Yogi Pascual Nitrite Ql (U) Positive Abnormal NEGATIVE [facility] Comment on above: Performed By: #### U MICRO, ERUR #### [facility] [address] [place] [address] Dr. Yogi Pascual pH (U) 5.0 [pH] Normal 5-9 [facility] Comment on above: Performed By: #### U MICRO, ERUR #### [facility] [address] [place] [address] Dr. Yogi Pascual Protein (U) [Mass/Vol] 100 mg/dL Abnormal NEGATIVE/ TRACE [facility] Comment on above: Performed By: #### U MICRO, ERUR #### [facility] [address] [place] [address] Dr. Yogi Pascual SPEC GRAVITY 1.030 Abnormal 1.005-<=1.02 5 [facility] Comment on above: Performed By: #### U MICRO, ERUR #### [facility] [address] [place] [address] Dr. Yogi Pascual UR MICRO IND INDICATED Normal [facility] Comment on above: Performed By: #### U MICRO, ERUR #### [facility] [address] [place] [address] Dr. Yogi Pascual Urobilinogen Qn (U) 1.0 {Bowen'U}/dL Normal 0.2 - 1.0 [facility] Comment on above: Performed By: #### U MICRO, ERUR #### [facility] [address] [place] [address] Dr. Yogi Pascual PROF CHEM 8 (BAS METB)on Anion gap [Moles/Vol] 15.5 mmol/L Normal [facility] Comment on above: Performed By: #### B MP #### [facility] [address] [place] [address] Dr. Yogi Pascual Calcium [Mass/Vol] 9.7 mg/dL Normal 8.5-10.1 [facility] Comment on above: Performed By: #### B MP #### [facility] [address] [address] [address] Yogi Pascual Chloride [Moles/Vol] 107 mmol/L Normal 98-107 [facility] Comment on above: Performed By: #### B MP #### [facility] [address] [address] [address] Yogi Pascual CO2 [Moles/Vol] 22.4 mmol/L Normal 22.0-30.0 [facility] Comment on above: Performed By: #### B MP #### [facility] [address] [place] [address] Dr. Yogi Pascual Creatinine [Mass/Vol] 1.91 mg/dL Critically high 0.66-1.25 [facility] Comment on above: Performed By: #### B MP #### [facility] [address] [place] [address] Dr. Yogi Pascual EGFR-AF MOZAMBICAN 42 mL/min/1.73m2 Critically low >=60 [facility] Comment on above: Performed By: #### B MP #### [facility] [address] [place] [address] Dr. Yogi Pascual EGFR-NON AF MOZAMBICAN 35 mL/min/1.73m2 Critically low >=60 [facility] Comment on above: Performed By: #### B MP #### [facility] [address] [place] [address] Dr. Yogi Pascual Glucose [Mass/Vol] 113 mg/dL Critically high 74-106 [facility] Comment on above: Performed By: #### B MP #### [facility] [address] [place] [address] Dr. Yogi Pascual Potassium [Moles/Vol] 3.9 mmol/L Normal 3.4-5.0 [facility] Comment on above: Performed By: #### B MP #### [facility] [address] [place] [address] Dr. Yogi Pascual Sodium [Moles/Vol] 141 mmol/L Normal 137-145 [facility] Comment on above: Performed By: #### B MP #### [facility] [address] [place] [address] Dr. Yogi Pascual Urea nitrogen [Mass/Vol] 26.0 mg/dL Critically high 7.0-18.0 [facility] Comment on above: Performed By: #### B MP #### [facility] [address] [address] [address] Yogi Pascual Urea nitrogen/Creatini ne [Mass ratio] 13.6 mg/mg Normal [facility] Comment on above: Performed By: #### B MP #### [facility] [address] [place] [address] Dr. Yogi Pascual URINE MICROSCOPIC ONLYon BACTERIA SMALL Abnormal NONE SEEN [facility] Comment on above: Performed By: #### U MICRO, ERUR #### [facility] [address] [place] [address] Dr. Yogi Pascual Bacteria identified Cx Nom (U) INDICATED Normal [facility] Comment on above: Performed By: #### U MICRO, ERUR #### [facility] [address] [place] [address] Dr. Yogi Pascual CAST NONE SEEN Normal NONE SEEN [facility] Comment on above: Performed By: #### U MICRO, ERUR #### [facility] [address] [place] [address] Dr. Yogi Pascual Crystals LM Nom (Urine sed) NONE SEEN Normal NONE SEEN [facility] Comment on above: Performed By: #### U MICRO, ERUR #### [facility] [address] [place] [address] Dr. Yogi Pascual Epithelial cells LM Ql (Urine sed) NONE SEEN Normal NONE SEEN /RARE [facility] Comment on above: Performed By: #### U MICRO, ERUR #### [facility] [address] [place] [address] Dr. Yogi Pascual MUCOUS NONE SEEN Normal NONE SEEN [facility] Comment on above: Performed By: #### U MICRO, ERUR #### [facility] [address], [place] [address] Dr. Yogi Pascual RBC 75-100 Abnormal 0-2 [facility] Comment on above: Performed By: #### U MICRO, ERUR #### [facility] [address], [place] [address] Dr. Yogi Pascual WBC 10-20 Abnormal NONE SEEN [facility] Comment on above: Performed By: #### U MICRO, ERUR #### [facility] [address] [id number] Yogi Pascual MRI LSPINE WO CONon [...] by: STACEY BILLS Date: 2021-09-07 14:15 Normal [facility] Encounters Encounter Date Encounter Type Care Provider Facility Start: 03-21-2024 End: 04-20-2024 ambulatory DG BALDWIN [facility] Start: 02-15-2024 End: 03-20-2024 ambulatory DG BALDWIN [facility] Start: 11-14-2023 End: 11-15-2023 ambulatory [facility] Start: 11-14-2023 End: 11-14-2023 Patient encounter procedure Daniel RHODESL [facility] Start: 11-01-2023 End: 11-02-2023 ambulatory Daniel RHODESL Facility:[id number] Start: 10-10-2023 End: 10-11-2023 ambulatory Daniel [...] Immunizations Immunization Date Immunization Notes Care Provider [facility] 08-20-2023 influenza virus vaccine, unspecified formulation Daniel HILL [facility] 01-27-2021 SARS-CoV-2 (COVID-19 ) mRNA-1273 vaccine Daniel HILL [facility] 12-30-2020 SARS-CoV-2 (COVID-19 ) mRNA-1273 vaccine Daniel RHODESL [facility] Payers Date Payer Category Payer Medicare [id number] 1957 Unknown [id number] 1945 Unknown [id number] 2.16.84 [id number] 1945 Unknown [id number] 2.16.84 [id number] 1945 Unknown [id number] 2.16.8 [id number] 1945 Unknown [id number] 2.16.8 [id number] 1945 Unknown [id number] 2.16.8 [id number] 1945 Unknown [id number] 2.16.8 [id number] 1945 Unknown [id number] 2.16.8 [id number] Social History Date Type Detail Facility Start: 10-10-2023 Tobacco smoking status Ex-smoker (fi nding) [facility] [place] Tobacco smoking status Never [facility] [place] Sex Assigned At Male [facility] Clinical Note 10-10-2023 Note Date & [...] Daily MiraLax, 19 (more content not included)... [facility] Comment on above: Result Comment: Elec tronically Signed By: SERGIO LAMA, Daniel Badillo.mando\Date and Time Signed: 10/10/23 16:09 EST Evaluation + Plan note Note Date & Type Note Facility Evaluation + Plan note No data available for this section [facility] Discharge instructions Note Date & Type Note Facility Hospital Discharge instructions No data available for this section [facility] Progress note Note Date & Type Note Facility Progress note No data available for this section [facility] [place] Summary Purpose Family History No Family History [...] DATE CREATED AUTHOR AUTHOR'S ORGANIZ ATION 11/16/2023 [facility] DATE CREATED AUTHOR AUTHOR'S ORGANIZ ATION 04/21/2024 [facility] Patient Care team informatio n (unrecognized section and content) Personnel Name: DG BALDWIN JR, DO Address: Address: [address] [place] [id number] US FOR RECORDS PERTAINING TO PATIENTS WHO [...] BE BASED ON THE PRIMARY CLINICAL RECORDS. [facility] [employer] provides no warranty or guarantee of the accuracy or completeness of information in this document.
[2024-09-10 20:41] LABS: Anion Gap 15.6; BUN Creatinine Ratio 11.4; Calcium 9.9 mg/dL (8.5-10.1); Carbon Dioxide 25.1 mmol/L (21.0-32.0); Chloride 104 mmol/L (98-107); Estimated GFR (African America 34 (>=60 mL/min/1.73m^2); Estimated GFR (Non-African Ame 28 (>=60 mL/min/1.73m^2); Glucose 95 mg/dL (74-106); Potassium 4.7 mmol/L (3.5-5.1); Sodium 140 mmol/L (136-145)
[2024-09-10] MEDS: HYDROMORPHONE HCL 0.5 MG/0.5 ML SYRINGE IV (20:44)
[2024-09-10] MEDS: ONDANSETRON PF 4 MG/2 ML VIAL IV (20:44)
[2024-09-10 20:49] LABS: Lactate/Lactic Acid 0.8 mmol/L (0.4-2.0)
[2024-09-10] MEDS: 0.9 % SODIUM CHLORIDE 500 ML IV ×2 (22:02→22:39)
[2024-09-10 23:49] LABS: Anion Gap 13.7; BUN Creatinine Ratio 10.8; Calcium 9.5 mg/dL (8.5-10.1); Carbon Dioxide 26.9 mmol/L (21.0-32.0); Chloride 106 mmol/L (98-107); Estimated GFR (African America 33 (>=60 mL/min/1.73m^2); Estimated GFR (Non-African Ame 28 (>=60 mL/min/1.73m^2); Glucose 92 mg/dL (74-106); Potassium 4.6 mmol/L (3.5-5.1); Sodium 142 mmol/L (136-145)
== END 2024-09-11 00:25 | disposition home or self-care (01) ==
PROVIDERS: Physician Assistant; Emergency Provider Emergency Medicine; PCP Internal Medicine
DX: N20.0 Calculus of kidney (principal); Z87.891 Personal history of nicotine dependence
CPT/HCPCS: 36415; 74176; 80048; 81003; 83605; 85025; 96374; 96375; 99284; J1171; J2405

== ENCOUNTER 2024-09-14 11:55 | Outpatient (OUT) | payer MEDICARE, OTHER, SELFPAY ==
--- NOTE | 2024-09-14 | XR_ITS ---
The [address] [address] Patient Name: SAIDA HOANG MRN: [id number] date: 1945 Sex: M Assigned Patient Location: [facility] Current Patient Location: Accession/Order Number: [id number] Exam Date: 09/14/2024 12:15 Report Date: 09/17/2024 10:02 At the request of: ARJUN SHETTY Procedure: XR abdomen 1V EXAMINATION: XR abdomen 1V HISTORY: N20.0 Kidney Stones COMPARISON: CT abdomen pelvis 09/10/2024 FINDINGS: KIDNEY/URETER - RIGHT: Small calcification projecting over superior pole of kidney suspected to represent overlying artifact since there were no stones in the kidney on the recent CT study. KIDNEY/URETER - LEFT: Small calcification projecting over superior pole of kidney suspected represent overlying artifact since there were no stones in the kidney on recent CT study. PELVIS: Stable 7 mm stone within distal ureter near the ureterovesical junction. Additional calcifications are also stable compatible with phleboliths. BOWEL: No abnormal dilation or deviation. BONES: No acute abnormality. OTHER: Negative. No abnormal gaseous collections. XR/XR abdomen 1V IMPRESSION: 1. Grossly stable distal left ureteral stone. Electronically authenticated by: STACEY BILLS Date: 09/17/2024 10:02
--- OUTSIDE RECORDS SUMMARY | 2024-09-14 11:59 | XMS_ITS | CCD ---
Author Organization [facility] Care Team Providers Care Stiff Straw Hat Washer Name Role Phone MARKER, DR POLLOCK Attending Unavailable MARKER, DR POLLOCK Consulting Unavailable VALONE, DR CONTE Primary Care Unavailable MARKER, DR POLLOCK Admitting Unavailable YAROSH, DANIEL Consulting Unavailable HudsonLatrice Consulting Unavailable VALONE, DR CONTE Primary Care Unavailable APLING, DEEPTHI Admitting Unavailable ZIEBER, DR STACEY Esteban Consulting Unavailable APLING, DEEPTHI Attending Unavailable APLING, DEEPTHI Consulting Unavailable VALONE JR, DG Primary Care Physician Daniel HILL Attending Unavailable VALONE, DG Referring [...] / oxyCODONE Drug Allergy 03-01-20 22 [facility] Repository (1 source) Clarithromycin Drug Allergy 08-26-20 15 [facility] Rep[facility] (3 sources) Codeine; Translations: [codeine] Drug Allergy 08-26-20 15 [facility] (1 source) cyclobenzaprine Drug Allergy [facility] Rep[facility] (1 source) Lincomycin Drug Allergy [facility] Repository (2 sources) Penicillins; Translations: [PENICILLINS] Drug allergy (disorder) 08-26-20 15 [facility] Rep[facility] (2 sources) quinapril; Translations: [Accupril] Drug Allergy 08-26-20 15 [facility] (1 source) Sertraline Drug Allergy [facility] (1 source) Sulfonamides (Antibiotic) Drug allergy (disorder) 11-24-19 16 [facility] (1 source) Codeine; Translations: [codeine] Drug Allergy Unknown (qualifier value) [facility] (2 sources) Penicillin; Translations: [penicillin] Drug Allergy [facility] [place] (1 source) quinapril; Translations: [quinapril] Drug Allergy Unknown (qualifier value) [facility] (2 sources) Sulfamethoxazole; Translations: [sulfamethoxazole] Drug Allergy Eruption (morphologic abnormality) [facility] (1 source) Clarithromycin; Translations: [clarithromycin] Drug Allergy [facility] Repository (1 source) Acetaminophen / oxyCODONE; Translations: [...] Other penitentiary (current) drug therapy; Translations: [OTH GRINDING OPERATOR CURRENT DRUG THERAPY] Onset: 03-04-2022 Episodic Other [...] choosing us for your care. Donald [facility] General Surgery Office/Clini c Noteon 11-14-2023 General [...] SARS-CoV-2 (COVID-19) mRNA-1273 vaccine 12/30/2020 Recorded Normal [facility] Comment on above: Result Comment: Elec tronically Signed By: SERGIO LAMA, Daniel Araujo\Date and Time Signed: 11/14/23 14:42 EST Reminderson 11-14-2023 Reminders - From: Karly Workman LPN To: N - Clinical; Sent: 11/14/2023 15:07:51 EST Show up: 10/02/2028 07:00:00 EST Subject: colonoscopy recall Due Date/Time: 11/01/2028 07:00:00 EST Reminder/Recall Patient due for surveillance colonoscopy 11/01/2028 due to history of tubular adenoma. Normal [facility] Outside Colonoscopyon 2022 Outside Colonoscopy [id number]#1.00TIFF Normal [facility] Pathology Noteon 11-07-2023 Pathology Note [id number]#1.00TIFF Normal [facility] Consent for Procedure/Surger yon 10-11-2023 Consent for Procedure/Surgery [id number]#1.00TIFF Normal [facility] Facesheeton 10-11-2023 Facesheet [id number]#1.00TIFF Normal [facility] Ambulatory Visit Summaryon 1 12-10-2022 Ambulatory Visit [...] for choosing us for your care. Normal [facility] Physician Referralon 023 Physician Referral [id number]#1.00TIFF Normal [facility] CULTURE URINEon 03-04-2022 CULTURE URINE Culture Observations [...] F Oxacillin <=0.25 R F Normal [facility] Comment on above: Performed By: #### U RCX #### [facility] [address] [place] [address] Dr. Yogi Pascual CBC AUTO DIFFon 03-02-2022 BASO # 0.1 103/ul Normal 0.0-0.1 [facility] Comment on above: Performed By: #### C BC #### [facility] [address] [place] [address] Dr. Yogi Pascual Basophils/100 WBC (Bld) 0.4 % Normal 0.2-2.0 [facility] Comment on above: Performed By: #### C BC #### [facility] [address] [place] [address] Dr. Yogi Pascual EO # 0.5 103/ul Normal 0.0-0.7 [facility] Comment on above: Performed By: #### C BC #### [facility] [address] [place] [address] Dr. Yogi Pascual Eosinophils/100 WBC (Bld) 2.9 % Normal 0.9-7.0 [facility] Comment on above: Performed By: #### C BC #### [facility] [address] [place] [address] Dr. Yogi Pascual Erythrocyte distribution width (RBC) [Ratio] 14.2 % Normal 11.0-15.0 [facility] Comment on above: Performed By: #### C BC #### [facility] [address] [place] [address] Dr. Yogi Pascual Hematocrit (Bld) [Volume fraction] 44.9 % Normal 42.0-54.0 [facility] Comment on above: Performed By: #### C BC #### [facility] [address] [place] [address] Dr. Yogi Pascual Hemoglobin (Bld) [Mass/Vol] 14.9 g/dL Normal 14.0-18.0 [facility] Comment on above: Performed By: #### C BC #### [facility] [address] [place] [address] Dr. Yogi Pascual IG # 0.05 10e3/ul Critically high 0.00-0.03 [facility] Comment on above: Performed By: #### C BC #### [facility] [address] [place] [address] Dr. Yogi Pascual IG % 0.3 % Normal 0.0-0.5 [facility] Comment on above: Performed By: #### C BC #### [facility] [address] [place] [address] Dr. Yogi Pascual LYMPH # 1.3 103/ul Normal 1.2-3.8 [facility] Comment on above: Performed By: #### C BC #### [facility] [address] [place] [address] Dr. Yogi Pascual Lymphocytes/100 WBC (Bld) 8.3 % Critically low 20.5-60.0 [facility] Comment on above: Performed By: #### C BC #### [facility] [address] [place] [address] Dr. Yogi Pascual MANUAL DIFF REQ NO Normal [facility] Comment on above: Performed By: #### C BC #### [facility] [address] [place] [address] Dr. Yogi Pascual MCH (RBC) [Entitic mass] 29.0 pg Normal 25.9-34.0 [facility] Comment on above: Performed By: #### C BC #### [facility] [address] [place] [address] Dr. Yogi Pascual MCHC (RBC) [Mass/Vol] 33.2 g/dL Normal 29.9-35.2 [facility] Comment on above: Performed By: #### C BC #### [facility] [address] [place] [address] Dr. Yogi Pascual MCV (RBC) [Entitic vol] 87.5 fL Normal 80.0-94.0 [facility] Comment on above: Performed By: #### C BC #### [facility] [address] [place] [address] Dr. Yogi Pascual MONO # 1.4 103/ul Critically high 0.3-0.8 [facility] Comment on above: Performed By: #### C BC #### [facility] [address] [place] [address] Dr. Yogi Pascual Monocytes/100 WBC (Bld) 9.4 % Normal 1.7-12.0 [facility] Comment on above: Performed By: #### C BC #### [facility] [address] [place] [address] Dr. Yogi Pascual NEUT # 12.0 103/ul Critically high 1.4-6.5 [facility] Comment on above: Performed By: #### C BC #### [facility] [address] [place] [address] Dr. Yogi Pascual Neutrophils/100 WBC (Bld) 78.7 % Critically high 43.0-75.0 [facility] Comment on above: Performed By: #### C BC #### [facility] [address] [address] [address] Yogi Pascual Platelet mean volume (Bld) [Entitic vol] 9.7 fL Normal 9.5-13.5 [facility] Comment on above: Performed By: #### C BC #### [facility] [address] [address] [address] Yogi Pascual PLT 297 103/ul Normal 150-450 [facility] Comment on above: Performed By: #### C BC #### [facility] [address] [address] [address] Yogi Pascual RBC 5.13 106/ul Normal 4.70-6.10 [facility] Comment on above: Performed By: #### C BC #### [facility] [address] [place] [address] Dr. Yogi Pascual WBC 15.3 103/ul Critically high 4.0-11.0 [facility] Comment on above: Performed By: #### C BC #### [facility] [address] [place] [address] ABD/PELVIS WO CONon [...] LATRICE HUDSON Date: 2022-03-01 23:38 Normal [facility] ER URINE PROFILEon 2 Bilirubin Ql (U) SMALL Abnormal NEGATIVE [facility] Comment on above: Performed By: #### U MICRO, ERUR #### [facility] [address] [place] [address] Dr. Yogi Pascual Clarity (U) CLEAR Normal CLEAR [facility] Comment on above: Performed By: #### U MICRO, ERUR #### [facility] [address] [place] [address] Dr. Yogi Pascual Color (U) YELLOW Normal YELLOW [facility] Comment on above: Performed By: #### U MICRO, ERUR #### [facility] [address] [address] [address] Yogi Pascual ERUTEODOROD A micrscopic examina tion will be performed if indicated. Normal [facility] Comment on above: Performed By: #### U MICRO, ERUR #### [facility] [address] [address] [address] Yogi Pascual Glucose Ql (U) Negative Normal NEGATIVE [facility] Comment on above: Performed By: #### U MICRO, ERUR #### [facility] [address] [address] [address] Yogi Pascual Hemoglobin Ql (U) LARGE Abnormal NEGATIVE [facility] Comment on above: Performed By: #### U MICRO, ERUR #### [facility] [address] [address] [address] Yogi Pascual Ketones Ql (U) Negative Normal NEGATIVE [facility] Comment on above: Performed By: #### U MICRO, ERUR #### [facility] [address] [place] [address] Dr. Yogi Pascual LEUKOCYTES SMALL Abnormal NEGATIVE [facility] Comment on above: Performed By: #### U MICRO, ERUR #### [facility] [address] [place] [address] Dr. Yogi Pascual Nitrite Ql (U) Positive Abnormal NEGATIVE [facility] Comment on above: Performed By: #### U MICRO, ERUR #### [facility] [address] [place] [address] Dr. Yogi Pascual pH (U) 5.0 [pH] Normal 5-9 [facility] Comment on above: Performed By: #### U MICRO, ERUR #### [facility] [address] [place] [address] Dr. Yogi Pascual Protein (U) [Mass/Vol] 100 mg/dL Abnormal NEGATIVE/ TRACE [facility] Comment on above: Performed By: #### U MICRO, ERUR #### [facility] [address] [place] [address] Dr. Yogi Pascual SPEC GRAVITY 1.030 Abnormal 1.005-<=1.02 5 [facility] Comment on above: Performed By: #### U MICRO, ERUR #### [facility] [address] [place] [address] Dr. Yogi Pascual UR MICRO IND INDICATED Normal [facility] Comment on above: Performed By: #### U MICRO, ERUR #### [facility] [address] [place] [address] Dr. Yogi Pascual Urobilinogen Qn (U) 1.0 {Bowen'U}/dL Normal 0.2 - 1.0 [facility] Comment on above: Performed By: #### U MICRO, ERUR #### [facility] [address] [place] [address] Dr. Yogi Pascual PROF CHEM 8 (BAS METB)on Anion gap [Moles/Vol] 15.5 mmol/L Normal [facility] Comment on above: Performed By: #### B MP #### [facility] [address] [place] [address] Dr. Yogi Pascual Calcium [Mass/Vol] 9.7 mg/dL Normal 8.5-10.1 [facility] Comment on above: Performed By: #### B MP #### [facility] [address] [address] [address] Yogi Pascual Chloride [Moles/Vol] 107 mmol/L Normal 98-107 [facility] Comment on above: Performed By: #### B MP #### [facility] [address] [address] [address] Yogi Pascual CO2 [Moles/Vol] 22.4 mmol/L Normal 22.0-30.0 [facility] Comment on above: Performed By: #### B MP #### [facility] [address] [place] [address] Dr. Yogi Pascual Creatinine [Mass/Vol] 1.91 mg/dL Critically high 0.66-1.25 [facility] Comment on above: Performed By: #### B MP #### [facility] [address] [place] [address] Dr. Yogi Pascual EGFR-AF CONGOLESE 42 mL/min/1.73m2 Critically low >=60 [facility] Comment on above: Performed By: #### B MP #### [facility] [address] [place] [address] Dr. Yogi Pascual EGFR-NON AF CONGOLESE 35 mL/min/1.73m2 Critically low >=60 [facility] Comment on above: Performed By: #### B MP #### [facility] [address] [place] [address] Dr. Yogi Pascual Glucose [Mass/Vol] 113 mg/dL Critically high 74-106 [facility] Comment on above: Performed By: #### B MP #### [facility] [address] [place] [address] Dr. Yogi Pascual Potassium [Moles/Vol] 3.9 mmol/L Normal 3.4-5.0 [facility] Comment on above: Performed By: #### B MP #### [facility] [address] [place] [address] Dr. Yogi Pascual Sodium [Moles/Vol] 141 mmol/L Normal 137-145 [facility] Comment on above: Performed By: #### B MP #### [facility] [address] [place] [address] Dr. Yogi Pascual Urea nitrogen [Mass/Vol] 26.0 mg/dL Critically high 7.0-18.0 [facility] Comment on above: Performed By: #### B MP #### [facility] [address] [address] [address] Yogi Pascual Urea nitrogen/Creatini ne [Mass ratio] 13.6 mg/mg Normal [facility] Comment on above: Performed By: #### B MP #### [facility] [address] [place] [address] Dr. Yogi Pascual URINE MICROSCOPIC ONLYon BACTERIA SMALL Abnormal NONE SEEN [facility] Comment on above: Performed By: #### U MICRO, ERUR #### [facility] [address] [place] [address] Dr. Yogi Pascual Bacteria identified Cx Nom (U) INDICATED Normal [facility] Comment on above: Performed By: #### U MICRO, ERUR #### [facility] [address] [place] [address] Dr. Yogi Pascual CAST NONE SEEN Normal NONE SEEN [facility] Comment on above: Performed By: #### U MICRO, ERUR #### [facility] [address] [place] [address] Dr. Yogi Pascual Crystals LM Nom (Urine sed) NONE SEEN Normal NONE SEEN [facility] Comment on above: Performed By: #### U MICRO, ERUR #### [facility] [address] [place] [address] Dr. Yogi Pascula Epithelial cells LM Ql (Urine sed) NONE SEEN Normal NONE SEEN /RARE [facility] Comment on above: Performed By: #### U MICRO, ERUR #### [facility] [address] [place] [address] Dr. Yogi Pascual MUCOUS NONE SEEN Normal NONE SEEN [facility] Comment on above: Performed By: #### U MICRO, ERUR #### [facility] [address] [place], [place] [address] Dr. Yogi Pascual RBC 75-100 Abnormal 0-2 [facility] Comment on above: Performed By: #### U MICRO, ERUR #### [facility] [address] [place], [place] [address] Dr. Yogi Pascual WBC 10-20 Abnormal NONE SEEN [facility] Comment on above: Performed By: #### U MICRO, ERUR #### [facility] [id number] Yogi Pascual MRI LSPINE WO CONon [...] by: STACEY BILLS Date: 2021-09-07 14:15 Normal [facility] Encounters Encounter Date Encounter Type Care Provider Facility Start: 03-21-2024 End: 04-20-2024 ambulatory DG BALDWIN [facility] Start: 02-15-2024 End: 03-20-2024 ambulatory DG BALDWIN [facility] Start: 11-14-2023 End: 11-15-2023 [facility]ulatory [facility] Start: 11-14-2023 End: 11-14-2023 Patient encounter procedure Daniel RHODESL [facility] Start: 11-01-2023 End: 11-02-2023 ambulatory Daniel RHODESL Facility:[id number] Start: 10-10-2023 End: 10-11-2023 ambulatory Daniel [...] Immunizations Immunization Date Immunization Notes Care Provider [facility] 08-20-2023 influenza virus vaccine, unspecified formulation Daniel HILL [facility] [place] 01-27-2021 SARS-CoV-2 (COVID-19 ) mRNA-1273 vaccine Daniel HILL [facility] 12-30-2020 SARS-CoV-2 (COVID-19 ) mRNA-1273 vaccine Daniel RHODESL [facility] Payers Date Payer Category Payer Medicare [id number] 1957 Unknown [id number] 1945 Unknown [id number] 2.16.84 [id number] 1945 Unknown [id number] 2.16.84 [id number] 1945 Unknown [id number] 2.16.8 [id number] 1945 Unknown [id number] 2.16.8 [id number] 1945 Unknown [id number] 2.16.8 [id number] 1945 Unknown [id number] 2.16.8 [id number] 1945 Unknown [id number] 2.16.8 [id number] Social History Date Type Detail Facility Start: 10-10-2023 Tobacco smoking status Ex-smoker (fi nding) [facility] [place] Tobacco smoking status Never [facility] [place] Sex Assigned At Male [facility] Clinical Note 10-10-2023 Note Date & [...] Daily MiraLax, 17 (more content not included)... [facility] Comment on above: Result Comment: Elec tronically Signed By: SERGIO LAMA, Daniel Badillo.mando\Date and Time Signed: 10/10/23 16:09 EST Evaluation + Plan note Note Date & Type Note Facility Evaluation + Plan note No data available for this section [facility] Discharge instructions Note Date & Type Note Facility Hospital Discharge instructions No data available for this section [facility] [place] Progress note Note Date & Type Note Facility Progress note No data available for this section [facility] [place] Summary Purpose Family History No Family History [...] DATE CREATED AUTHOR AUTHOR'S ORGANIZ ATION 11/16/2023 [facility] DATE CREATED AUTHOR AUTHOR'S ORGANIZ ATION 04/21/2024 [facility] Patient Care team informatio n (unrecognized section and content) Personnel Name: DG BALDWIN JR, DO Address: Address: [address] [place] [id number] US FOR RECORDS PERTAINING TO PATIENTS WHO [...] BE BASED ON THE PRIMARY CLINICAL RECORDS. [facility] [employer] provides no warranty or guarantee of the accuracy or completeness of information in this document.
== END 2024-09-14 11:56 | disposition home or self-care (01) ==
LOC: RAD 11:56
PROVIDERS: PCP Internal Medicine; Visit Provider Urology
DX: N20.0 Calculus of kidney (principal)
CPT/HCPCS: 74018

== ENCOUNTER 2025-05-14 16:01 | Emergency (ER) | payer MEDICARE, OTHER, SELFPAY ==
[2025-05-14 16:08] VITALS: BP 167/92; PULSE 86; TEMP 37; O2SAT 97; BMI 30.9
--- NOTE | 2025-05-14 16:33 | XR_ITS ---
[facility] [place] [address] Patient Name: SAIDA HOANG MRN: [id number] date: 1945 Sex: M Assigned Patient Location: ER Current Patient Location: ER Accession/Order Number: [id number] Exam Date: 05/14/2025 17:14 Report Date: 05/14/2025 17:15 At the request of: ROBLES ORTIZ MD Procedure: XR shoulder LT min 2V XR shoulder LT min 2V 05/14/2025 5:06 PM SIGNS AND SYMPTOMS: Fall, left shoulder pain PROTOCOL: Frontal, Grashey, scapular Y views of the left shoulder COMPARISON: None FINDINGS: There is mild hypertrophy of the acromioclavicular joint. There is mild narrowing of the glenohumeral joint. Subcortical cystic changes noted in the greater tuberosity of the humeral head suspicious for rotator cuff pathology. The visualized left hemithorax is grossly intact. No fracture or dislocation. XR/XR shoulder LT min 2V IMPRESSION: No fracture or dislocation. Degenerative changes are noted in the left shoulder with findings suspicious for underlying rotator cuff pathology. Impression dictated by: Arun Gay M.D. 05/14/2025 5:15 PM Dictation Location: [place] [address] Electronically authenticated by: [id number] Y Date: 05/14/2025 17:15
--- NOTE | 2025-05-14 16:33 | XR_ITS ---
[place] [id number] Patient Name: SAIDA HOANG MRN: [id number] date: 1945 Sex: M Assigned Patient Location: ER Current Patient Location: ER Accession/Order Number: [id number] Exam Date: 05/14/2025 17:12 Report Date: 05/14/2025 17:13 At the request of: ROBLES ORTIZ MD Procedure: XR hip LT min 2V XR hip LT min 2V 05/14/2025 5:06 PM SIGNS AND SYMPTOMS: Fall, left hip pain PROTOCOL: Frontal and frog-leg views of the left hip COMPARISON: None FINDINGS: There is mild narrowing of the left hip joint space. There is no fracture. No dislocation. Enthesophyte formation is noted along the greater trochanter. XR/XR hip LT min 2V IMPRESSION: No fracture or dislocation. Degenerative changes are noted in the left hip. Impression dictated by: Arun Gay M.D. 05/14/2025 5:13 PM Dictation Location: [place] [address] Electronically authenticated by: [id number] Y Date: 05/14/2025 17:13
--- NOTE | 2025-05-14 16:33 | XR_ITS ---
The [place] [address] Patient Name: SAIDA HOANG MRN: [id number] date: 1945 Sex: M Assigned Patient Location: ER Current Patient Location: ER Accession/Order Number: [id number] Exam Date: 05/14/2025 17:13 Report Date: 05/14/2025 17:14 At the request of: ROBLES ORTIZ MD Procedure: XR cervical spine 2-3V XR cervical spine 2-3V 05/14/2025 5:06 PM SIGNS AND SYMPTOMS: ^fall, neck pain PROTOCOLS: Frontal and lateral radiographs of the cervical spine. COMPARISON: None FINDINGS: The bones are in anatomic alignment. There is preservation of the vertebral body heights and intervertebral disc spaces. Anterior osteophyte formation is noted at the C3-C4, C4-5, and C5-C6 levels with accompanying hypertrophy. The atlantoaxial joint is preserved. There is no fracture or destructive lesion. Atherosclerotic changes are noted in the left carotid bifurcation. Surgical clip is noted in the right hemithorax suggesting prior carotid endarterectomy XR/XR cervical spine 2-3V IMPRESSION: No fracture or subluxation. Degenerative changes are noted as above. Impression dictated by: Arun Gay M.D. 05/14/2025 5:14 PM Dictation Location: [place] [address] Electronically authenticated by: [id number] Y Date: 05/14/2025 17:14
--- NOTE | 2025-05-14 16:33 | ED.GENADUL1 ---
HPI HPI - General Adult General Chief complaint: Fall Stated complaint: FALL, BACK PAIN, LEFT EXTREMITY PAIN Time Seen by Provider: 05/14/25 16:10 Source: patient and family Mode of arrival: walk-in Limitations: no limitations History of Present Illness HPI narrative: 80-year-old male presents for left hip pain as well as left shoulder pain. He fell in his home on a wet floor. He states that he started sliding and was holding onto the door jamb but was not able to hold himself up and he landed on his left side. He does not believe he hit his head. No LOC. No chest pain or shortness of breath or abdominal pain. Related Data Home Medications ?Medication ?Instructions ?Recorded ?Confirmed bupropion HCl 450 mg 24 hr tablet, 450 mg PO DAILY 10/24/23 11/01/23 extended release doxepin 10 mg capsule 10 mg PO BID 10/24/23 11/01/23 ertugliflozin 5 mg tablet 5 mg PO DAILY 10/24/23 11/01/23 (Steglatro) ezetimibe 10 mg tablet (Zetia) 5 mg PO DAILY 10/24/23 11/01/23 finasteride 5 mg tablet 5 mg PO DAILY 10/24/23 11/01/23 folic acid 1 mg tablet 1 mg PO DAILY 10/24/23 11/01/23 magnesium oxide 400 mg PO DAILY 10/24/23 11/01/23 montelukast 10 mg tablet 10 mg PO DAILY 10/24/23 11/01/23 hrlotmpu-yez-vfptw acid 0.4 1 tab PO DAILY 10/24/23 11/01/23 mg-lycopene 300 mcg-lutein 250 mcg tablet (Centrum Silver) nabumetone 500 mg tablet 500 mg PO BID 10/24/23 11/01/23 omeprazole 40 mg capsule,delayed 40 mg PO DAILY 10/24/23 11/01/23 release polyethylene glycol 3350 17 17 g PO BID 10/24/23 11/01/23 gram/dose oral powder (Miralax) potassium citrate 10 mEq (1,080 10 meq PO DAILY 10/24/23 11/01/23 mg) tablet,extended release rosuvastatin 20 mg tablet (Crestor) 20 mg PO DAILY 10/24/23 11/01/23 sacubitril 24 mg-valsartan 26 mg 1 tab PO BID 10/24/23 11/01/23 tablet (Entresto) Previous Rx's ?Medication ?Instructions ?Recorded doxycycline hyclate 100 mg tablet 100 mg PO BID 7 days #14 tabs 09/07/24 tamsulosin 0.4 mg capsule (Flomax) 0.4 mg PO DAILY #10 caps 09/07/24 Allergies Allergy/AdvReac Type Severity Reaction Status Date / Time Penicillins Allergy Severe Unknown Verified 05/14/25 16:11 codeine Allergy Intermediate Unknown Verified 05/14/25 16:11 quinapril (From Accupril) Allergy Intermediate Unknown Verified 05/14/25 16:11 Sulfa (Sulfonamide Allergy Intermediate Unknown Verified 05/14/25 16:11 Antibiotics) Review of Systems ROS Narrative A ten point review of systems is negative except as noted above. PFS PFS Medical History (Updated 05/14/25 @ 17:24 by Saran Bolton MD) Abnormal cystoscopy ?R39.9 - Unspecified symptoms and signs involving the genitourinary system (ICD-10) Kidney stones ?N20.0 - Calculus of kidney (ICD-10) Carotid atherosclerosis ?I65.29 - Occlusion and stenosis of unspecified carotid artery (ICD-10) BPH (benign prostatic hyperplasia) ?N40.0 - Benign prostatic hyperplasia without lower urinary tract symptoms (ICD-10) Surgical History (Updated 10/27/23 @ 15:17 by Gardenia Hall) History of cystoscopy ?Z98.890 - Other specified postprocedural states (ICD-10) History of lithotripsy ?Z98.890 - Other specified postprocedural states (ICD-10) History of esophagogastroduodenoscopy (EGD) ?Z98.890 - Other specified postprocedural states (ICD-10) History of colonoscopy ?Z98.890 - Other specified postprocedural states (ICD-10) History of carotid endarterectomy ?Z98.890 - Other specified postprocedural states (ICD-10) History of cardiac cath ?Z98.890 - Other specified postprocedural states (ICD-10) S/P TURP ?Z90.79 - Acquired absence of other genital organ(s) (ICD-10) Family History (Updated 10/24/23 @ 10:12 by Gardenia Dominguez) Other Family history of cancer Social History Within the past year, how often did you have a drink containing alcohol: never Score interpretation: A score less than 4 is consistent with normal alcohol consumption. Smoking status: Former smoker Non-prescribed substance use: denies use Previous occupational history: retired Highest level of school completed/degree received: 10th grade Little interest or pleasure in doing things: not at all Feeling down, depressed, or hopeless: not at all Exam Narrative Exam Narrative: Nurses note and vital signs reviewed and patient is not hypoxic. General: The patient appears in no apparent distress. Patient is resting comfortably on cart. Skin: Warm, dry, no pallor noted. There is no rash noted. Head: Normocephalic, atraumatic Eye: Normal conjunctiva, no drainage Ears, Nose, Mouth, and Throat: oral mucosa is moist. Nares patent. Cardiovascular: Regular Rate and Rhythm Respiratory: Patient is in no distress, no accessory muscle use, lungs are clear to auscultation, no wheezing, rales or rhonchi Back: No C-spine tenderness but he has some tenderness on the left side of his neck. No tenderness in the thoracic or lumbar spines GI: Soft and nontender Musculoskeletal: Left knee is nontender. Left hip has no deformity or bruising or abrasion. He has some mild tenderness but his hip has good range of motion. Left elbow is nontender and has full range of motion. Left shoulder has some mild tenderness and has full range of motion. No deformity or abrasion. Neurological: A&O normal speech Psychiatric: Cooperative Constitutional Vital Signs, click to edit/add: Last Vital Signs Temp 98.6 F 05/14/25 16:08 Pulse 86 05/14/25 16:08 Resp 18 05/14/25 16:08 BP 167/92 H 05/14/25 16:08 Pulse Ox 97 05/14/25 16:08 O2 Del Method Room Air 05/14/25 16:08 Course Vital Signs Vital signs: Vital Signs Temperature 98.6 F 05/14/25 16:08 Pulse Rate 86 05/14/25 16:08 Respiratory Rate 18 05/14/25 16:08 Blood Pressure 167/92 H 05/14/25 16:08 Pulse Oximetry 97 05/14/25 16:08 Oxygen Delivery Method Room Air 05/14/25 16:08 Temperature 98.6 F 05/14/25 16:08 Pulse Rate 86 05/14/25 16:08 Respiratory Rate 18 05/14/25 16:08 Blood Pressure 167/92 H 05/14/25 16:08 Pulse Oximetry 97 05/14/25 16:08 Oxygen Delivery Method Room Air 05/14/25 16:08 Medical Decision Making MDM Narrative Medical decision making narrative: X-ray showed no acute findings. He has good range of motion of his left shoulder and I do not suspect acute rotator cuff injury. Findings were discussed with him and he is able to be discharged home. Treatment diagnosis and follow-up were discussed with the patient. Differential Diagnosis Differential Diagnosis: Fracture, contusion Imaging Data Shoulder, hip, C-spine x-rays: Radiologist's impression: ITS Impressions Cervical Spine X-Ray 05/14/25 16:33 IMPRESSION: No fracture or subluxation. Degenerative changes are noted as above. Impression dictated by: Arun Gay M.D. 05/14/2025 5:14 PM Dictation Location: [place] Electronically authenticated by: [id number] Y Date: 05/14/2025 17:14 Hip X-Ray 05/14/25 16:33 IMPRESSION: No fracture or dislocation. Degenerative changes are noted in the left hip. Impression dictated by: Arun Gay M.D. 05/14/2025 5:13 PM Dictation Location: [place] Electronically authenticated by: [id number] Y Date: 05/14/2025 17:13 Shoulder X-Ray 05/14/25 16:33 IMPRESSION: No fracture or dislocation. Degenerative changes are noted in the left shoulder with findings suspicious for underlying rotator cuff pathology. Impression dictated by: Arun Gay M.D. 05/14/2025 5:15 PM Dictation Location: [place] Electronically authenticated by: [id number] Y Date: 05/14/2025 17:15 Discharge Plan Discharge Chief Complaint: Fall Clinical Impression: Fall Patient Disposition: Home, Self-Care Time of Disposition Decision: 17:23 Condition: Good Mode of Transportation: Private Vehicle Prescriptions / Home Meds: No Action bupropion HCl 450 mg tablet extended release 24 hr 450 mg PO DAILY Centrum Silver 0.4 mg-300 mcg- 250 mcg tablet 1 tab PO DAILY doxepin 10 mg capsule 10 mg PO BID Entresto 24-26 mg tablet 1 tab PO BID finasteride 5 mg tablet 5 mg PO DAILY folic acid 1 mg tablet 1 mg PO DAILY magnesium oxide 400 mg magnesium tablet 400 mg PO DAILY polyethylene glycol 3350 [Miralax] 17 gram/dose powder 17 g PO BID montelukast 10 mg tablet 10 mg PO DAILY nabumetone 500 mg tablet 500 mg PO BID omeprazole 40 mg capsule,delayed release(DR/EC) 40 mg PO DAILY potassium citrate 10 mEq (1,080 mg) tablet extended release 10 meq PO DAILY rosuvastatin [Crestor] 20 mg tablet 20 mg PO DAILY Steglatro 5 mg tablet 5 mg PO DAILY ezetimibe [Zetia] 10 mg tablet 5 mg PO DAILY tamsulosin [Flomax] 0.4 mg capsule 0.4 mg PO DAILY Qty: 10 0RF doxycycline hyclate 100 mg tablet 100 mg PO BID 7 Days Qty: 14 0RF Print Language: Mongolian Instructions: Fall Prevention for Older Adults (ED) Referrals: DG BALDWIN DO [Primary Care Provider, Family Practice] - 1 week
[2025-05-14 17:30] VITALS: BP 138/86; PULSE 67; O2SAT 99
== END 2025-05-14 17:30 | disposition home or self-care (01) ==
PROVIDERS: Emergency Provider Emergency Medicine; PCP Internal Medicine
DX: Z04.3 Encounter for examination and observation following other accident (principal); Z87.891 Personal history of nicotine dependence
CPT/HCPCS: 72040; 73030; 73502; 99285

== ENCOUNTER 2025-06-09 13:29 | Outpatient (RCR) | payer MEDICARE, OTHER, SELFPAY | END 2025-07-11 07:05 | disposition home or self-care (01) | LOC: PT 13:29 | PROVIDERS: PCP Internal Medicine; Visit Provider Internal Medicine | DX: R26.89 Other abnormalities of gait and mobility (principal); Z91.81 History of falling; G20.C Parkinsonism, unspecified | CPT/HCPCS: 97110; 97112; 97162 ==

== ENCOUNTER 2025-09-21 06:24 | Emergency (ER) | payer MEDICARE, OTHER, SELFPAY ==
[2025-09-21] VITALS (15 sets, daily range): BP systolic 128–165; BP diastolic 89–93; PULSE 72–85; TEMP 36.5; O2SAT 96–98; BMI 31.7
--- NOTE | 2025-09-21 06:32 | XR_ITS ---
The [address] [address] Patient Name: SAIDA HOANG MRN: [id number] date: 1945 Sex: M Assigned Patient Location: ED.MAIN Current Patient Location: ED.MAIN Accession/Order Number: [id number] Exam Date: 09/21/2025 07:13 Report Date: 09/21/2025 07:58 At the request of: ROBLES ORTIZ MD Procedure: XR chest 1V PA CHEST: CLINICAL HISTORY: Altered mental status COMPARISON: None Unremarkable cardiomediastinal. Bilateral calcific opacities likely pleural-based plaques.. Trace blunting costophrenic angles. No definite acute airspace disease effusion or pneumothorax. IMPRESSION: Negative for acute airspace disease Impression dictated by: Layo Forman M.D. 09/21/2025 7:58 AM Dictation Location: [place] [address] Electronically authenticated by: [id number] Y Date: 09/21/2025 07:58
--- NOTE | 2025-09-21 06:32 | CT_ITS ---
The [address] [address] Patient Name: SAIDA HOANG MRN: [id number] date: 1945 Sex: M Assigned Patient Location: ED.MAIN Current Patient Location: ED.MAIN Accession/Order Number: [id number] Exam Date: 09/21/2025 07:13 Report Date: 09/21/2025 08:03 At the request of: ROBLES ORTIZ MD Procedure: CT head/brain wo con CT BRAIN WITHOUT CONTRAST: CLINICAL HISTORY: Altered mental status COMPARISON: None TECHNIQUE: Contiguous axial unenhanced images were obtained through the brain. This CT exam was performed using one or more following dose reduction techniques: Automated exposure control, adjustment of the mA and/or kV according to patient size, or use of iterative reconstruction technique. FINDINGS: There is no evidence of midline shift, intra or extra-axial fluid collection, hemorrhage or CT evidence of acute large vascular distribution stroke. Disproportionate degree of ventriculomegaly with there degree of sulcal prominence may raise possibility of normal pressure hydrocephalus. Mild chronic small vessel changes. There are vascular calcifications. Visualized intraorbital contents appear unremarkable. Visualized paranasal sinuses are clear. The surrounding soft tissues are normal. CT/CT head/brain wo con IMPRESSION: NO ACUTE INTRACRANIAL ABNORMALITY. CT FINDINGS MAY RAISE POSSIBILITY FOR NORMAL PRESSURE HYDROCEPHALUS. Impression dictated by: Layo Forman M.D. 09/21/2025 8:03 AM Dictation Location: [place] [address] Electronically authenticated by: [id number] Y Date: 09/21/2025 08:03
--- NOTE | 2025-09-21 06:32 | ECG_ITS ---
The [facility] Test Date: 2025-09-21 Pat Name: SAIDA HOANG Department: Room: - Gender: Male Director Radiation Oncology: : 1945 Requested By: [id number] Order Number: [id number] Reading MD: TENNILLE JACINTO M.D. Measurements Intervals [place] Rate: 79 P: 2 IA: 178 QRS: 5 QRSD: 104 T: 47 QT: 374 QTc: 408 Interpretive Statements 1100 Sinus rhythm 1102 Sinus arrhythmia 8102 Low QRS voltage in chest leads 9120 atypical ECG No previous ECG available for comparison Electronically Signed On 09-21-2025 9:44:07 EST by TENNILLE JACINTO M.D.
--- NOTE | 2025-09-21 06:33 | ED.GENADUL1 ---
HPI HPI - General Adult General Chief complaint: Altered Mental Status Stated complaint: ALTERED MENTAL STATUS Time Seen by Provider: 09/21/25 06:32 Source: other Source information: EMS Mode of arrival: ambulance History of Present Illness HPI narrative: 80-year-old male presented because he was found wandering outside. This reportedly was not very far from his home but the exact distance is unknown. He was transported here by paramedics. The patient himself does not seem to have any complaints. He states that nothing hurts. He claims he was walking home from the [place] where he was playing poker. He states that he lives with his and that she still works but she will not tell him where she works. No family members are here initially. Related Data Home Medications ?Medication ?Instructions ?Recorded ?Confirmed bupropion HCl 450 mg 24 hr tablet, 450 mg PO DAILY 10/24/23 11/01/23 extended release doxepin 10 mg capsule 10 mg PO BID 10/24/23 11/01/23 ertugliflozin 5 mg tablet 5 mg PO DAILY 10/24/23 11/01/23 (Steglatro) ezetimibe 10 mg tablet (Zetia) 5 mg PO DAILY 10/24/23 11/01/23 finasteride 5 mg tablet 5 mg PO DAILY 10/24/23 11/01/23 folic acid 1 mg tablet 1 mg PO DAILY 10/24/23 11/01/23 magnesium oxide 400 mg PO DAILY 10/24/23 11/01/23 montelukast 10 mg tablet 10 mg PO DAILY 10/24/23 11/01/23 qcftppza-bkk-jsznd acid 0.4 1 tab PO DAILY 10/24/23 11/01/23 mg-lycopene 300 mcg-lutein 250 mcg tablet (Centrum Silver) nabumetone 500 mg tablet 500 mg PO BID 10/24/23 11/01/23 omeprazole 40 mg capsule,delayed 40 mg PO DAILY 10/24/23 11/01/23 release polyethylene glycol 3350 17 17 g PO BID 10/24/23 11/01/23 gram/dose oral powder (Miralax) potassium citrate 10 mEq (1,080 10 meq PO DAILY 10/24/23 11/01/23 mg) tablet,extended release rosuvastatin 20 mg tablet (Crestor) 20 mg PO DAILY 10/24/23 11/01/23 sacubitril 24 mg-valsartan 26 mg 1 tab PO BID 10/24/23 11/01/23 tablet (Entresto) Previous Rx's ?Medication ?Instructions ?Recorded doxycycline hyclate 100 mg tablet 100 mg PO BID 7 days #14 tabs 09/07/24 tamsulosin 0.4 mg capsule (Flomax) 0.4 mg PO DAILY #10 caps 09/07/24 Allergies Allergy/AdvReac Type Severity Reaction Status Date / Time Penicillins Allergy Severe Unknown Verified 05/14/25 16:11 codeine Allergy Intermediate Unknown Verified 05/14/25 16:11 quinapril (From Accupril) Allergy Intermediate Unknown Verified 05/14/25 16:11 Sulfa (Sulfonamide Allergy Intermediate Unknown Verified 05/14/25 16:11 Antibiotics) Review of Systems ROS Narrative A ten point review of systems is negative except as noted above. [facility] Medical History (Updated 09/21/25 @ 06:35 by Saran Bolton MD) Abnormal cystoscopy ?R39.9 - Unspecified symptoms and signs involving the genitourinary system (ICD-10) Kidney stones ?N20.0 - Calculus of kidney (ICD-10) Carotid atherosclerosis ?I65.29 - Occlusion and stenosis of unspecified carotid artery (ICD-10) BPH (benign prostatic hyperplasia) ?N40.0 - Benign prostatic hyperplasia without lower urinary tract symptoms (ICD-10) Surgical History (Updated 10/27/23 @ 15:17 by Gardenia Hall) History of cystoscopy ?Z98.890 - Other specified postprocedural states (ICD-10) History of lithotripsy ?Z98.890 - Other specified postprocedural states (ICD-10) History of esophagogastroduodenoscopy (EGD) ?Z98.890 - Other specified postprocedural states (ICD-10) History of colonoscopy ?Z98.890 - Other specified postprocedural states (ICD-10) History of carotid endarterectomy ?Z98.890 - Other specified postprocedural states (ICD-10) History of cardiac cath ?Z98.890 - Other specified postprocedural states (ICD-10) S/P TURP ?Z90.79 - Acquired absence of other genital organ(s) (ICD-10) Family History (Updated 10/24/23 @ 10:12 by Gardenia Dominguez) Other Family history of cancer Social History Within the past year, how often did you have a drink containing alcohol: never Score interpretation: A score less than 4 is consistent with normal alcohol consumption. Smoking status: Former smoker Non-prescribed substance use: denies use Previous occupational history: retired Highest level of school completed/degree received: 10th grade Little interest or pleasure in doing things: not at all Feeling down, depressed, or hopeless: not at all Exam Narrative Exam Narrative: Nurses note and vital signs reviewed General:The patient appears no acute distress Skin:Warm, dry, no pallor noted.There is no rash noted. Head:Normocephalic, there is a small superficial abrasion on his anterior scalp,: Neck supple, no nuchal rigidity Eye: Normal conjunctiva, no drainage Ears, Nose, Mouth, and Throat: oral mucosa is moist. Nares patent. Cardiovascular:Regular Rate and Rhythm Respiratory:Patient is in no distress, no accessory muscle use, lungs are clear to auscultation, no wheezing, rales or rhonchi Back:non-tender GI: Soft and nontender Musculoskeletal: All joints have full range of motion Neurological: Awake alert and conversant. He knows his name and where he is but he does not know the year or the month. Psychiatric:Cooperative Constitutional Vital Signs, click to edit/add: Last Vital Signs Temp 97.7 F 09/21/25 06:25 Pulse 85 09/21/25 06:25 Resp 18 09/21/25 06:25 BP 161/93 H 09/21/25 06:25 Pulse Ox 96 09/21/25 06:25 O2 Del Method Room Air 09/21/25 06:25 Course Vital Signs Vital signs: Vital Signs Temperature 97.7 F 09/21/25 06:25 Pulse Rate 85 09/21/25 06:25 Respiratory Rate 18 09/21/25 06:25 Blood Pressure 161/93 H 09/21/25 06:25 Pulse Oximetry 96 09/21/25 06:25 Oxygen Delivery Method Room Air 09/21/25 06:25 Temperature 97.7 F 09/21/25 06:25 Pulse Rate 85 09/21/25 06:25 Respiratory Rate 18 09/21/25 06:25 Blood Pressure 161/93 H 09/21/25 06:25 Pulse Oximetry 96 09/21/25 06:25 Oxygen Delivery Method Room Air 09/21/25 06:25 Medical Decision Making MDM Narrative Medical decision making narrative: Tests are ordered and the patient is signed out to Dr. Cedeno at change of shift. Differential Diagnosis Differential Diagnosis: Dementia, UTI, acute kidney injury ECG Data Attestation: I personally reviewed and interpreted this ECG as follows: (EKG on my interpretation shows sinus rhythm with a rate of 79 and some artifact. No acute change.) Discharge Plan Discharge Patient Disposition: Still a Patient
--- OUTSIDE RECORDS SUMMARY | 2025-09-21 06:33 | XMS_ITS | Clinical Summary ---
Author Organization [facility] Address [address] [place] [address] Care Team Providers Care Resource Specialist Teacher Name Role Phone Tong Arndt MD Primary Care Provider [phone] Allergies Active AllergyReactionsCriticalityNoted DateCommentsCodeineHives,Unknown 04/06/2016 Other Reaction(s): Coordination problem Oxycodone-AcetaminophenGI jhagaogarvd50/09/3073AnzwjiptxtoHmyxdnb20/12/2023 Quinapril TviSscno50/18/2016 Other Reaction(s): Drowsy LcwrspzctdLysdexg27/16/2024Sulfa AntibioticsDizziness,OqfqLpu4001/24/2020 Dywtohtmass55/09/2017 Other Reaction(s): Sedated, Xerostomia, Sedated, Xerostomia Medications MedicationSigDispense QuantityRefillsLast FilledStart DateEnd DateStatus rosuvastatin (Crestor) 20 MG tablet Take 1 tablet by mouth in the morning.03/01/2023ctive potassium citrate CR (Urocit-K-10) 10 mEq ER tablet Take 1 tablet by mouth in the morning and 1 tablet before bedtime.03/01/2023 Active montelukast (Singulair) 10 MG tablet 10 mg.03/01/2023ctive finasteride (Proscar) 5 MG tablet 5 mg.03/01/2023ctive ezetimibe (Zetia) 10 MG tablet 10 mg.03/01/2023ctive buPROPion XL (Wellbutrin XL) 150 MG 24 hr tablet 450 mg.03/01/2023ctive omeprazole (PriLOSEC) [address] capsule OmeprazoleActive Family History Medical HistoryRelationNameCommentsCancerFatherHeart diseaseMotherRelationName StatusCommentsFatherDeceasedMotherDeceased Social History Tobacco UseTypesPacks/DayYears UsedDateSmoking Tobacco: NeverSmokeless Tobacco: Never Tobacco Cessation:Counseling Given: Not Answered Alcohol UseStandard Drinks/WeekCommentsNever0 (1 standard drink = 0.6 oz pure alcohol)caffeine 1-2 cups/daySex and Gender InformationValueDate RecordedSex Assigned at BirthNot on fileLegal PnaZeph0502/01/2023 6:34 PM EDTGender Identity Not on fileSexual OrientationNot on file Last Filed Vital Signs Vital SignReadingTime TakenCommentsBlood Zhhfjmhc665/7911 12:00 PM EST Pulse--Temperature--Respiratory Rate--Oxygen Saturation--Inhaled Oxygen Concentration--Payxaj266 kg (242 lb)08/02/2022 12:00 PM HQYHjliin028.5 cm (6' 3 )08/02/2022 12:00 PM EDTBody Mass Index30.2509 12:00 PM EDT Plan of Treatment DateTypeDepartmentCare Team (Latest Contact Info)Cchxcwjkhqq96/05/2025 3:30 PM ESTOffice Visit [facility] [address] [facility] [address] [place] [address] Lonnie Arce MD [phone] [facility] [address] [place] [address] [phone] Health MaintenanceDue DateLast DoneCommentsDTaP/Tdap/Td Vaccines (1 - Tdap) 4COVID-19 Vaccine (2024- season)/, 01/27/2021, 12/30/2020Influenza Vaccine (#1)/11/2023, 08/20/2023, 08/27/2019, Additional history existsPneumococcal Vaccine: 65+ WdrpdCurljldlb30/02/2018, 11/29/2017, 10/23/2017HIB VaccinesAged OutNo longer eligible based on patient's age to complete this topicHPV VaccinesAged OutNo longer eligible based on patient's age to complete this topicHepatitis A VaccinesAged OutNo longer eligible based on patient's age to complete this topicHepatitis B VaccinesAged OutNo longer eligible based on patient's age to complete this topicIPV Vaccines Aged OutNo longer eligible based on patient's age to complete this topic Meningococcal B VaccineAged OutNo longer eligible based on patient's age to complete this topicMeningococcal VaccineAged OutNo longer eligible based on patient's age to complete this topicRotavirus VaccinesAged OutNo longer eligible based on patient's age to complete this topic Insurance Care Teams Team MemberRelationshipSpecialtyStart DateEnd Date Tong Arndt MD [facility] [place] [address] PCP - GeneralInternal Medicine07/31/23
--- OUTSIDE RECORDS SUMMARY | 2025-09-21 06:33 | XMS_ITS | CCD ---
Author Organization [facility] Care Team Providers Care Yardage Estimator Name Role Phone MARKER, DR POLLOCK Attending Unavailable MARKER, DR POLLOCK Consulting Unavailable VALONE, DR CONTE Primary Care Unavailable MARKER, DR POLLOCK Admitting Unavailable YAROSH, DANIEL Consulting Unavailable HudsonLatrice Consulting Unavailable VALONE, DR CONTE Primary Care Unavailable APLING, DEEPTHI Admitting Unavailable ZIEBER, DR STACEY Esteban Consulting Unavailable APLING, DEEPTHI Attending Unavailable APLDONNA, DEEPTHI Consulting Unavailable NICOLASA KAMINSKI, DG Primary Care Physician [phone] DG BALDWIN JR Referring Unavailable VALONE JR, DG Whitlock Primary Care Unavailable DG BALDWIN JR Referring Unavailable VALONE JR, DG Whitlock Primary Care Unavailable DG BALDWIN Referring Unavailable NILDaniel Whitlock Attending Unavailable NILL, Daniel Esteban Attending Unavailable Catrachito SHETTY Attending Unavailable NKANSTEODORO-AMRASTA PAEZ Attending Unavail able NKANSAH-AMANKRA, RASTA Admitting Unavail able NKANSAH-AMANKRA, RASTA Referring Unavail able NKANSAH-AMANKRA, RASTA Attending Unavail able NILDaniel Whitlock Attending Unavailable NKANSAH-AMANKRA, RASTA Admitting Unavail able NKANSAH-AMANKRA, RASTA Attending Unavail able NKANSAH-AMANKRA, RASTA Referring Unavail able NKANSAH-AMANK, RASTA Attending Unavail able MD RASTA DAVID Attending Unav ailable MD RASTA DAVID Admitting Unav ailable MD RASTA DAVID Attending Unav ailable MD RASTA DAVID Referring Unav ailable MD RASTA DAVID Admitting Unav ailable Allergies Allergy ClassificationReported Allergen(s)Allergy TypeDate of OnsetReaction(s) Facility (1 source)Acetaminophen / oxyCODONEDrug Awiwgdq82-94-8310Ngw [facility] (1 source)ClarithromycinDrug Ibknyhq72-66-1220Fvg [facility] (5 sources)Codeine; Translations: [CODEINE]Drug Vmoabme23-40-1184Gsy [facility] (1 source)cyclobenzaprineDrug AllergyThe [facility] (1 source)LincomycinDrug AllergyThe [facility] (2 sources)Penicillins; Translations: [PENICILLINS]Drug allergy (disorder) 93-69-6541Qyh [facility] (4 sources)quinapril; Translations: [Accupril]Drug Xddjgwi25-34-3936Pbk [facility] (1 source)SertralineDrug AllergyThe [facility] (1 source)Sulfonamides (Antibiotic)Drug allergy (disorder)55-65-1895Dlf [facility] (6 sources)Codeine; Translations: [codeine]Drug AllergyUnknown (qualifier value) [facility] (9 sources)Penicillin; Translations: [penicillin]Drug [facility]Reg[facility] [place] (6 sources)quinapril; Translations: [quinapril]Drug AllergyUnknown (qualifier value)[facility] (9 sources)Sulfamethoxazole; Translations: [sulfamethoxazole]Drug Allergy Eruption (morphologic abnormality)[facility] (1 source)Acetaminophen / oxyCODONE; Translations: [OXYCODONE-ACETAMINOPHEN]Drug Ayxrkpr71-65-0442WinChtnwj Repository (1 source)Sulfamethoxazole / Trimethoprim; Translations: [SULFAMETHOXAZOLE-TRIMETHOPRIM]Drug Pqwhojo65-33-7834DybGyzmiq Repository (1 source)Sulfonamides (Antibiotic); Translations: [SULFA (SULFONAMIDE ANTIBIOTICS)]Propensity to adverse reactions to drug (disorder)01-24-2020 [facility] Rep[facility] (3 sources)Clarithromycin; Translations: [clarithromycin]Drug AllergyR[facility] Rep[facility] Medications Current Medications MedicationDrug Class(es)DatesSig (Normalized)Sig (Original)24 hr buPROPion hydrochloride 150 mg extended release oral tablet (6 sources)AminoketoneStart: 17-11-0860orsc 1 tablet by mouth once daily buPROPion 150 mg/24 hours XL Tab 300 mg = 2 tab(s), Oral, Daily, Refills(s) 0, Depression Start Date: 08/31/23 Status: OrderedStart: 40-81-8048lpvs 1 tablet by mouth once dailybuPROPion 150 mg/24 hours XL Tab 450 mg = 3 tab(s), Oral, Daily, Refills(s) 0 Start Date: 08/31/23 Status: OrderedCentrum Silver (2 sources)Start: 64-86-0986Yydodmy Silver Oral, Daily, Refill(s) 0 Start Date: 01/28/20 Status: OrderedDoxepin (2 sources)Tricyclic AntidepressantStart: 84-20-8127mkcdxpx as directed, Refills(s) 0 Start Date: 10/04/23 Status: Orderedertugliflozin 5 mg oral tablet (2 sources)Start: 76-31-6454eoty 1 tablet by mouth once daily in the morning Steglatro 5 mg oral tablet 5 mg = 1 tab(s), Oral, qAM, Refills(s) 0 Start Date: 10/04/23 Status: OrderedZetia (6 sources)Dietary Cholesterol Absorption InhibitorStart: 12-67-6243ckln 5 mg by mouth once dailyZetia 5 mg, Oral, Daily, Refills(s) 0, High cholesterol Start Date: 01/28/20 Status: OrderedStart: 19-54-1647qnni 5 mg by mouth once dailyZetia 5 mg, Oral, Daily, Refills(s) 0 Start Date: 01/28/20 Status: Orderedfinasteride 5 mg oral tablet (6 sources)5-alpha Reductase InhibitorStart: 39-65-8247reka 1 tablet by mouth once dailyfinasteride 5 mg Tab 5 mg = 1 tab(s), Oral, Daily, # 30 tab(s), Refills(s) 0, High cholesterol Start Date: 01/28/20 Status: Orderedfolic acid 1 mg oral tablet (6 sources)Start: 69-41-6666cekj 2 tablets by mouth once dailyfolic acid 1 mg Tab 2 mg = 2 tab(s), Oral, Daily, Refills(s) 0, Prophylaxis Start Date: 10/04/23 Status: Orderedhyoscyamine sulfate 0.125 mg oral tablet (1 source)Start: 09-19-2024 End: 72-32-9530knuz 1 tablet by mouth four times daily as needed for muscle spasmsLevsin 0.125 mg SL Tab 0.125 mg = 1 tab(s), Oral, QID, PRN for spasm, X 5 day(s), # 20 tab(s), Refills(s) 0, Pharmacy: [facility], 187, cm, 09/19/24 11:53:00 EDT, Height/Length Dosing, 97.2, kg, 09/19/24 11:53:00 EDT, Weight Dosing Start Date: 09/19/24 Stop Date: 09/24/24 Status: Ordered magnesium oxide 400 mg oral tablet (2 sources)Start: 01-50-0730fpww 1 tablet by mouth once dailymagnesium oxide 400 mg Tab 400 mg = 1 tab(s), Oral, Daily, Refills(s) 0 Start Date: 10/04/23 Status: Orderedmontelukast 10 mg oral tablet (6 sources)Leukotriene Receptor AntagonistStart: 04-17-7694jwwh 1 tablet by mouth once dailymontelukast 10 mg Tab 10 mg = 1 tab(s), Oral, Daily, Refills(s) 0 Start Date: 08/31/23 Status: Orderednabumetone 500 mg oral tablet (2 sources)Nonsteroidal Anti-inflammatory DrugStart: 70-39-8981ybuy 1 tablet by mouth twice dailynabumetone 500 mg Tab 500 mg = 1 tab(s), Oral, BID, Refills(s) 0 Start Date: 08/31/23 Status: Orderedomeprazole 40 mg delayed release oral capsule (6 sources)Proton Pump InhibitorStart: 92-73-6997todg 1 capsule by mouth once dailyomeprazole 40 mg Cap-DR 40 mg = 1 cap(s), Oral, Daily, Refills(s) 0, Indigestion Start Date: 08/31/23 Status: OrderedoxyCODONE hydrochloride 5 mg oral tablet (1 source)Opioid AgonistStart: 09-19-2024 End: 93-89-0459eahy 1 tablet by mouth every twelve hours as needed for pain Roxicodone 5 mg Tab 5 mg = 1 tab(s), Oral, q12hr, PRN for pain, X 3 day(s), # 5 tab(s), Refills(s) 0, Pharmacy: [facility], 187, cm, 09/19/24 11:53:00 EDT, Height/Length Dosing, 97.2,kg, 09/19/24 11:53:00 EDT, Weight Dosing Start Date: 09/19/24 Stop Date: 09/22/24 Status: OrderedMiralax (6 sources)Osmotic LaxativeStart: 59-26-9584phik 17 g by mouth twice daily MiraLax 17 gm, Oral, BID, Refill(s) 0, Constipation Start Date: 10/04/23 Status: OrderedStart: 08-79-7835prno 17 g by mouth twice dailyMiraLax 17 gm, Oral, BID, Refill(s) 0 Start Date: 10/04/23 Status: Orderedrosuvastatin calcium 20 mg oral tablet (6 sources)HMG-CoA Reductase InhibitorStart: 97-14-6261dszd 1 tablet by mouth once dailyrosuvastatin 20 mg Tab 20 mg = 1 tab(s), Oral, Daily, Refills(s) 0, High cholesterol Start Date: 08/31/23 Status: Orderedsacubitril 24 mg / valsartan 26 mg oral tablet (6 sources)Angiotensin 2 Receptor BlockerStart: 96-10-3881egqf 1 tablet by mouth once dailyEntresto 24 mg-26 mg oral tablet 1 tab(s), Oral, Daily, Refill(s) 0, High blood pressure Start Date: 10/04/23 Status: OrderedStart: 49-04-3912iyla 1 tablet by mouth twice dailyEntresto 24 mg-26 mg oral tablet 1 tab(s), Oral, BID, Refill(s) 0 Start Date: 10/04/23 Status: Orderedtamsulosin hydrochloride 0.4 mg oral capsule (4 sources)alpha-Adrenergic BlockerStart: 03-78-0443xmhz 1 capsule by mouth once dailytamsulosin 0.4 mg Cap 0.4 mg = 1 cap(s), Oral, Daily, Refills(s) 0 Start Date: 09/17/24 Status: Ordered Completed/Discontinued Medications MedicationDrug Class(es)DatesSig (Normalized)Sig (Original)potassium citrate 10 meq extended release oral tablet (6 sources)Start: 34-36-1185imvp 1 tablet by mouth once dailypotassium CITRATE 10 mEq ER Tab 10 mEq, 1 tab(s), Oral, Daily, Refill(s) 0 Start Date: 08/31/23 Status: Ordered Problems Active Problems Problem ClassificationProblemDateDocumented DateEpisodic/ChronicAbdominal pain (3 sources)Unspecified abdominal pain; Translations: [UNSPECIFIED ABDOMINAL PAIN]Onset: 15-21-7532EszlmcmfMxkqeuc disorders (12 sources)Generalized anxiety disorder; Translations: [Posttraumatic stress disorder]31-29-3088XybhwdrUrgqun; peripheral; and visceral artery aneurysms (7 sources)Abdominal aortic aneurysm, without rupture; Translations: [Aortic aneurysm]Onset: 050486-08-1324WmmbqmbOseustf on above:Outside Source Comment: April 06, 2016 Entered By: MYNOR BLISS Comment: Unsure if aneurysm, but very smallCalculus of urinary tract (13 sources)Personal history of urinary calculi; Translations: [History of calculus of kidney]Onset: 562224-31-7807HgysywroLdixtsswyy heart failure; nonhypertensive (6 sources)Heart jyglthp08-06-4584GblkwbyYthmyzai mellitus without complication (6 sources)Type 2 diabetes mellitus controlled by bgkw20-54-5910ImyttpaSbncgbxax of lipid metabolism (7 sources)Hyperlipidemia, unspecified; Translations: [Hyperlipidemia]Onset: 110808-10-5153XweytowIngdbmqnjfabxm and diverticulitis (13 sources)Diverticula of intestine; Translations: [Diverticulosis of large intestine without perforation or abscess without bleeding]Onset: 11-14-2023 ChronicEsophageal disorders (6 sources)Gastroesophageal reflux -56-1703EytwapyGeiennxmb hypertension (7 sources)Essential (primary) hypertension; Translations: [Hypertensive disorder]Onset: 538207-58-9367BxmqshvDuclorzmwafij symptoms and ill- defined conditions (6 sources)Urge incontinence of owidn74-77-1151IloiatbBjtamyjhrdlss symptoms and ill-defined conditions (20 sources)Incomplete emptying of bladder; Translations: [Increased frequency of urination]79-56-4466KymucjbtKxzrqlwvqjh of prostate (8 sources)Benign prostatic hypertrophy with outflow obstruction; Translations: [Benign prostatic hyperplasia with lower urinary tract symptoms]Onset: 896923-76-1585AzephbpHxjrtwongfva conditions of male genital organs (6 sources)Trjiexzbfxq37-63-3352AwiaqmwjOpba disorders (6 sources)Depressive kewqjjcv65-63-8452HwxbdsmHbglw aftercare (1 source)Other mcfp (current) drug therapy; Translations: [OTH GLYCERIN SUPERVISOR CURRENT DRUG THERAPY]Onset: 95-06-8605GboxafryYcmny and unspecified benign neoplasm (7 sources)Benign neoplasm of descending colon; Translations: [Benign neoplasm of descending colon]Onset: 44-63-1884PsafkrnvYpjns diseases of kidney and ureters (2 sources)Urinary tract obstruction; Translations: [Hydronephrosis with renal and ureteral calculous obstruction]Onset: 09-33-0187SsiayyfhBekqz male genital disorders (7 sources)Impotence; Translations: [Erectile dysfunction]47-42-4693ZasucnjHqspy male genital disorders (1 source)Male erectile dysfunction, unspecified; Translations: [Erectile dysfunction]Onset: 13-67-3641QqcpexvVchco nervous system disorders (1 source)Ataxia, unspecified; Translations: [Ataxia, unspecified]Onset: 17-36-6296OgwqqloyRccdc nutritional; endocrine; and metabolic disorders (6 sources)Grktmcsngt34-78-7758GsoinmjjQuitr nutritional; endocrine; and metabolic disorders (6 sources)Overweight in adulthood with body mass index of 25 or more but less than 5635-38-7823JztdvrkkTnzaq screening for suspected conditions (not mental disorders or infectious disease) (6 sources)Stool DNA-based colorectal cancer screening szdiynmq44-62-2168 EpisodicPeripheral and visceral atherosclerosis (6 sources)Carotid uicueqlorxeoqsg31-03-7568UjokpbcUacwlkh on above:Outside Source Comment: April 06, 2016 Entered By: MYNOR BLISS Comment: Rt adela 2007 Residual codes; unclassified (6 sources)Obstructive sleep apnea ezkvwrvf26-50-7120TylmpjkJslqvvhjp and history of mental health and substance abuse codes (6 sources)Jj-acyeam60-45qvgsra62-47-7463AirzoudyMscocdxitas; intervertebral disc disorders; other back problems (4 sources)Other intervertebral disc degeneration, lumbar region; Translations: [OTH IV DISC DEGEN LUMBAR REGION]Onset: 92-27-1790CdiakipTkuvmqphcqnd (5 sources)Obstructive ohrfqvafmptxus16-83-3638Hjopaup tract infections (1 source)Urinary tract infection, site not specified; Translations: [UTI SITE NOT SPECIFIED]Onset: 14-06-0292Wdablcfr Past or Other Problems Problem ClassificationProblemDateDocumented DateEpisodic/ChronicUnclassified (6 sources)Drug therapy ulmglbn20-71-7826 Results Test NameValueInterpretationReference RangeFacilityXR Abdomen 1 Viewon 56-49-7973OW Abdomen 1 ViewExam Date/Time: 11/06/2024 17:30 EST Reason for Exam: Kidney stone;Kidney stone Report IMPRESSION: NONSPECIFIC ABDOMEN. CLINICAL HISTORY: Kidney stone, Kidney stone COMPARISON: NONE. FINDINGS: Gas and stool in colon. No focal or diffuse small bowel dilatation. No mass effect. No abnormal calcification. Marginal osteophytes lumbar spine. Ordering Provider: RASTA DAVID FINAL REPORT Dictated: 11/08/2024 1:41 pm Akash Sanders MD Signed (Electronic Signature): 11/08/2024 1:41 pm Signed by: Akash Sanders MD Transcribed by: SHEYLA Technologist: HORTENSIA Technical Comments Radiation Dose: Ka,r in mGy = na DAP = naNormalLake Norman Regional Medical Centerer [facility] InstituteAmbulatory Visit Summaryon 11-07-2024 Ambulatory Visit SummaryAmbulatory Visit Summary SAIDA HOANG :1945 Visit Date:11/07/2024 Ambulatory Visit Instructions Your Diagnosis Ureteral stone with hydronephrosis BPH with urinary obstruction Erectile dysfunction Your Care Team Attending Physician - RASTA DAVID MD Primary Care Physician - DG BALDWIN JR, DO This Is Your Medications List Contact prescribing physician if questions or concerns buPROPion (buPROPion 150 mg/24 hours XL Tab) ezetimibe (Zetia) finasteride (finasteride 5 mg Tab) folic acid (folic acid 1 mg Tab) montelukast (montelukast 10 mg Tab) omeprazole (omeprazole 40 mg Cap-DR) polyethylene glycol 3350 (MiraLax) potassium citrate (potassium CITRATE 10 mEq ER Tab) rosuvastatin (rosuvastatin 20 mg Tab) sacubitril-valsartan (Entresto 24 mg-26 mg oral tablet) Procedures Performed Cystoscopy (09/19/2024), Total knee arthroplasty (09/19/2024), Colonoscopy (11/01/2023), Colonoscopy (06/05/2020), TURP - Transurethral resection of prostate (12/03/2015), Cystoscopy (11/17/2015), EGD - esophagogastroduodenoscopy (08/2015), Cystoscopy (11/02/2011), Cystoscopic laser lithotripsy of ureteric calculus (11/21/2008), Laser ablation of prostate (05/13/2008), Urodynamics (12/29/2005), Cystoscopy (12/06/2005), Colonoscopy (2003), Colonoscopy (1996), Cardiac catheterization, Carotid endarterectomy. Discharge Vitals Heart Rate (Peripheral) 73 Blood Pressure 141/90 Height 188 cm Height 74 in Weight 113.5 kg Weight 250.224 lb BMI 32.11 What to do next You Need to Schedule the Following Appointments Follow Up with GENOVEVA LAMA, EMMY MAGDALENO When: Where: Medications What How Much When Instructions Unchanged buPROPion (buPROPion 150 mg/ 24 hours XL Tab) 2 Tablets By Mouth Every day [...] mg oral tablet) 1 Tablets By Mouth Every day Contact prescribing physician if questions or concerns Allergies Accupril (Unknown) codeine (Unknown) penicillin (Rash) sulfamethoxazole (Rash) Problems Ongoing - Any problem that you are currently receiving treatment for. Aortic aneurysm Benign neoplasm of descending colon BMI 28.0-28.9,adult BPH with urinary obstruction Carotid atherosclerosis Depressive disorder Diverticulosis Erectile dysfunction Former smoker Generalized anxiety disorder GERD (gastroesophageal reflux disease) Heart failure History of kidney stones Hyperlipidemia Hypertension Impotence Incomplete bladder emptying Microscopic hematuria Nephrolithiasis Nocturia JASPAL (obstructive sleep apnea) Overweight Positive colorectal cancer screening using Cologuard test Prostatitis PTSD (post-traumatic stress disorder) Sigmoid diverticulosis Type 2 diabetes mellitus controlled by diet Ureteral stone with hydronephrosis Urge incontinence Urinary frequency Urinary urgency Historical - Any problem that you are no longer receiving treatment for. Anticoagulated Patient Survey You may receive a survey via text or e-mail asking about your office visit. Please share your experience with us by completing your survey. We appreciate your feedback and thank you for choosing us for your care. Education Materials Benign Prostatic Hyperplasia Benign prostatic hyperplasia (BPH) is an enlarged prostate gland that is caused by the normal agingprocess. The prostate may get bigger as a man gets older. The condition is not caused by cancer. The prostate is a walnut-sized gland that is involved in the production of semen. It is located in front of the rectum and below the bladder. The bladder stores urine. The urethra carries stored urine ou t of the body. An enlarged prostate can press on the urethra. This can make it harder to pass urine. The buildup of urine in the lamar (more content not included)...Normal [facility]/Clinic Noteon 43-14-1542Tmusjci Office/Clinic NoteUrology Office/Clinic Note Chief Complaint follow up HPI Staff 79 year old male here for F/U to laser Litho with renal US and KUB Previous DX: ureteral stone with hydronephrosis and BPH w/LUTS Renal US done 09/27/24 IPSS score: 10 Pt presents with , states having urinary frequency, and urgency. Not wearing depends. Waking uponce at night to urinate. No noticeable blood or dysuria History of Present Illness Tests reviewed: reviewed UA, KUB, renal US, stone analysis. I have reviewed the previous health record information and history for this patient from Dr. Fatima I have reviewed and verified the staff HPI to be accurate for this encounter. There have been no associated fever, chills, flank pain, or blood in the urine. Denies any urinary infections since last encounter. Review of Systems PHQ Score Initial Depression Screen Score: 0 SCORE ROS - Provider Constitutional: denies weight loss, denies hot flashes. Eyes: denies eye problems. Gastrointestinal: denies nausea, denies vomiting. Cardiovascular: denies chest pain or angina. Integumentary: no dryness Musculoskeletal: denies musculoskeletal symptoms. ENMT: denies otolaryngeal symptoms. Respiratory: no shortness of breath. Heme/Lymph: denies easy bleeding tendency, denies easy bruising tendency. Psychiatric: no confusion, no anxiety. Genitourinary: See HPI. Physical Exam Vitals & Measurements HR: 73(Peripheral) BP: 141/90 HT: 74 in HT: 188 cm WT: 113.5 kg WT: 250.224 lb BMI: 32.11 General Appearance: alert, no distress, well nourished, well developed male. Assessment/Plan Pt accompanied by today. Used to see Dr. Shetty years ago. Not on AC. Portions of this record may have been created with voice recognition artificial intelligence software, specifically [employer], [employer] and or [employer]. Substitutions may have occurred due to the inherent limitations of voice recognition and artificial intelligence software. 1. Ureteral stone with hydronephrosis (N13.2: Hydronephrosis with renal and ureteral calculous obstruction) Admits to hx of stones. ER note states pt has always passed stones naturally however pt states today that he has had a stent in the past. Pt presented to [facility] ER 09/10/24 with L lower quadrant pain. CT AP wo con 09/10/24 - essentially stable positioning of the distal L 7 mm ureteral stone resulting in mild hydronephrosis. Labs ~Cr 2.29, eGFR 28 ER discharged pt home with Flomax. KUB 09/17/24 TB - stable 7 mm stone within distal ureter near the UVJ. S/p cysto, L URS, L laser litho, L stent placement, L ureteral dilation, L RPG, L ureteral stone basketing 09/19/24. Removed string stent at home without difficulty. Stone analysis ~100% ca ox mono. Renal US 09/27/24 [facility] - no stones or hydro. Left kidney is small in size compared to right. KUB 11/06/24 [facility] - dictation pending. -Fluids 2. BPH with urinary obstruction (N40.1: Benign prostatic hyperplasia with lower urinary tract symptoms) PSA: 09/17/15 - 0.56 09/19/16 - 0.47 12/05/18 - 0.52 S/p TURP 12/03/[address] Shetty. S/p cysto, L URS, L laser litho, L stent placement, L ureteral dilation, L RPG, L ureteral stone basketing 09/19/24 - prior TURP defect with moderate trabeculations of the bladder, small bladder diverticuli and cellules with no tumors or lesions noted. No obstructive prostatic lobes noted. IPSS 12 (23) Taking Finasteride 5mg qd through primary care. Unsure how long he has been taking this. Experiencing frequency and urgency. Not wearing depends. Feels his stream could be stronger. Consider UroLift in the future if symptoms worsen. -Cont Finasteride wo changes -F/up in 3 mos 3. Erectile dysfunction (N52.9: Male erectile dysfunction, unspecified) MEGAN 1 (1) Reports difficulty with erections however reports she has dried up which also contributes. states she was prescribed estrogen cream in the past and this was cost prohibitive. Advised her to discuss this with her primary care and to have a new prescription sent for estrace cream since it is more affordable now. Patient follows up today status post ureteroscopy, laser lithotripsy. He is doing well since procedure. No issues. He does states that he is having some voiding issues with IPSS of 12. He continues to have frequency and urgency. Not wearing pads. I discussed with him that we will follow-up with himin 3 months. Patient is also having ED but is currently not sexually active. Follow-up With When Contact Information GENOVEVA LAMA, RASTA, EMMY Additional Instructions: 3 months Patient Education Benign Prostatic Hyperplasia I, Jaycee Loza, personally scribed for Dr. Fatima on 11/07/2024 13:20:39. . Documentation recorded by the scribe, Jaycee Loza, accurately reflects the services(s) I performed and decisions made by me. Authenticated by Dr. Shearer (more content not included)...[facility] DaytonComment on above: Result Comment: Electronically Signed By: RASTA DAVID MD\.br\Date and Time Signed: 11/07/24 13:28 EST\.br\Electronically Co-Signed By: Jaycee Loza\.br\Date and Time Co-Signed: 11/07/24 13:21 ESTUS Renalon 09-30-2024 US RenalExam Date/Time: 09/27/2024 09:56 EST Reason for Exam: f/u for stone removal;Other (please specify) Report IMPRESSION: Small right kidney. No calculi identified. CLINICAL HISTORY: f/u for stone removal. COMPARISON: NONE. COMMENT: Right kidney measures 11.0 x 5.3 x 6.2 cm. Left kidney measures 9.1 x 4.1 x 4.9 cm. Left kidney is small in size compared to right. Both kidneys normal in contour and echogenicity and color flow. No cortical thinning, pelvocaliectasis, calculi, cystic/solid lesions bilaterally. Ordering Provider: RASTA DAVID FINAL REPORT Dictated: 09/30/2024 4:31 pm Akash Sanders MD Signed (Electronic Signature): 09/30/2024 4:31 pm Signed by: Akash Sanders MD Transcribed by: SHEYLA Technologist: FelishaRiverview Health InstituteCalculus Analysison [id number] oxalate monohydrate (Stone) [Mass fraction]100 % Invalid Interpretation [facility] CenterComment on above:Performed By: #### [id number] #### [facility] [address] [place], [place] [address]Tboua (Stone)BrownInvalid Interpretation [facility] CenterComment on above:Performed By: #### [id number] #### [facility] [address] [place] [id number]f Interpretation [facility] CenterComment on above:Result Comment: Percentage (Represents the % composition)Performed By: #### [id number] #### [facility] [address] [place], [place] [id number]:CommentInvalid Interpretation [facility] CenterComment on above:Result Comment: This test was developed and its performance characteristics determined by [facility]. It has not been cleared or approved by the Food and Drug Administration. Performed at: [address] [id number] PhD [place] VPerformed By: #### [id number] #### [facility] [address] [place], [place] [id number] comment Cameron (Report)CommentInvalid Interpretation [facility] CenterComment on above:Result Comment: Physician questions regarding Calculi Analysis contact [facility] at: [phone].Performed By: #### [id number] #### [facility] [address] [place] [id number] Note:CommentInvalid Interpretation [facility] CenterComment on above:Result Comment: Calculi report will follow via computer, mail or clothing manager delivery.Performed By: #### [id number] #### [facility] [address] [place] [id number] (Stone) [Entitic vol][id number] Interpretation [facility] CenterComment on above:Result Comment: Multiple pieces received. Dimensions of the largest piece reported.Performed By: #### [id number] #### [facility] [address] [place] [id number] source subject NomCommentInvalid Interpretation Code [facility] InstituteComment on above:Result Comment: Left KidneyPerformed By: #### [id number] #### [facility] [address] [facility], [place] [address]Gaqmj PhotoCommentInvalid Interpretation [facility] CenterComment on above:Result Comment: Photograph will follow under a separate coverPerformed By: #### [id number] #### [facility] [address] [facility], [place] [address]Mlglmp (Stone)32.0 mgInvalid Interpretation [facility] CenterComment on above:Performed By: #### [id number] #### [facility] [address] [facility], [place] [address]Zvnh OR Intraoperative Recordon [id number] OR Intraoperative RecordMain OR Intraoperative Record IntraOp Document Type FT Summary Primary Physician: RASTA DAVID MD Finalized Date/Time: 09/20/24 10:21:36 Pt. Name: SAIDA HOANG/Sex: 1945 Male Med Rec #: [id number] Physician: RASTA DAVID MD Financial #: [id number] Pt. Type: A Room/Bed: [place] [address] Admit/Disch: 09/19/24 10:57:33 - 09/19/24 15:30:00 Institution: Case Times FT Entry 1 Patient Times In Room 09/19/24 12:52:00 Out Room 09/19/24 13:39:00 Procedure Times Start 09/19/24 13:06:00 Stop 09/19/24 13:35:00 Anesthesia Times Start 09/19/24 12:52:00 Stop 09/19/24 13:39:00 Last Modified By: Lewis Armstrong 09/19/24 13:46:37 General Comments: Chart opened for charge review per Alexx Hall RN. DOROTHEA Case Attendance FT Entry 1 Entry 2 Entry 3 Case Attendee Sharon Mancia CRNA, MD, Lewis Armstrong Role Performed Anesthesiologist Surgeon - Primary Firewall Administrator - Primary Lacquer Dipping Machine Operator Time In 09/19/24 12:52:00 09/19/24 12:52:00 09/19/24 12:52:00 Time Out 09/19/24 13:39:00 09/19/24 13:39:00 09/19/24 13:39:00 Procedure CYSTOSCOPY W/ HOMIUM CYSTOSCOPY W/ HOMIUM CYSTOSCOPY W/ HOMIUM LASER(Left), CYSTOSCOPY LASER(Left), CYSTOSCOPY LASER(Left), CYSTOSCOPY RETROGRADE STENT RETROGRADE STENT RETROGRADE STENT INSERTION(Left) INSERTION(Left) INSERTION(Left) Comments DR ROACH SUPERVISING Last Modified By: Lewis Armstrong Terry T Sweene, Terry T 09/19/24 13:46:42 09/19/24 13:46:42 09/19/24 13:46:42 Entry 4 Entry 5 Entry 6 Case Attendee Liane Barton (R), Karime Edmonds LPN Role Performed Scrub - Relief Wide Area Network Administrator Staff - Other Time In 09/19/24 12:52:00 09/19/24 12:52:00 09/19/24 12:52:00 Time Out 09/19/24 13:39:00 09/19/24 13:39:00 09/19/24 13:02:00 Procedure CYSTOSCOPY W/ HOMIUM CYSTOSCOPY W/ HOMIUM CYSTOSCOPY W/ HOMIUM LASER(Left), CYSTOSCOPY LASER(Left), CYSTOSCOPY LASER(Left), CYSTOSCOPY RETROGRADE STENT RETROGRADE STENT RETROGRADE STENT INSERTION(Left) INSERTION(Left) INSERTION(Left) Comments ROOM ASSIST Last Modified By: Lewis Armstrong Terry T Sweene, Terry T 09/19/24 13:46:42 09/19/24 13:46:42 09/19/24 13:46:56 General Comments: LIONEL ONEIL REP HERE FOR CASE. Santiago ARMSTRONG RN. Perioperative Protocols FT Pre-Care Text: Implements protective measures prior to operative or invasive procedure, confirms identity before the operative or invasive procedure, verifies operative procedure, surgical site, and laterality Entry 1 Procedure(s) CYSTOSCOPY W/ HOMIUM Patient Identity Birthday, ID Band LASER(Left), CYSTOSCOPY Verified (select at Check, Patient RETROGRADE STENT least 2): Participation INSERTION(Left) Consents / H and P Anesthesia Consent, Operative Site Present Verified H&P, Surgery/Procedure Marking Verified Consent Surgical Site Yes Laterality Verified Yes Verified Procedure Verified Yes Correct Patient Yes Position Verified Availability Equipment, Implant, Prep Dry n/a Verified (If Medication Applicable) PreOp Antibiotic Yes Time Out Sharon Mancia CRNA, Given Participants GENOVEVA LAMA, Nathaniel MAGDALENO Terry T, Liane Barton Kwiatkowski R.T. (R), Roxanna Esteban Time Out Complete 09/19/24 13:12:00 Outcomes Met? Yes Last Modified By: Lewis Armstrong 09/19/24 13:16:05 Post-Care Text: The patient is free from signs and symptoms of injury caused by extraneous objects Allergy Information FT Pre-Care Text: Verifies allergies Entry 1 Allergies Reviewed? Yes Allergies Reviewed Self/Patient With Outcomes Met? Yes Last Modified By: Lewis Armstrong 09/19/24 13:16:19 Post-Care Text: The patient received appropriate medication(s) safely administered during the perioperative period Surgical Procedures FT Entry 1 Entry 2 Procedure Description Procedure CYSTOSCOPY W/ HOMIUM CYSTOSCOPY RETROGRADE LASER STENT INSERTION Modifiers Left Left Surgeon Description CYSTOSCOPY, LEFT CYSTOSCOPY, LEFT URETEROSCOPY, LASER URETEROSCOPY, LASER LITHOTRIPSY, LEFT LITHOTRIPSY, LEFT URETERAL STONE BASKET, URETERAL STONE BASKET, LEFT RETROGRADE, LEFT LEFT RETROGRADE, LEFT URETERAL STENT URETERAL STENT PLACEMENT. PLACEMENT. Primary Procedure No Yes Primary Surgeon GENOVEVA LAMA, GENOVEVA LAMA, RASTA MAGDALENO Start 09/19/24 13:06:00 09/19/24 13:06:00 Stop 09/19/24 13:35:00 09/19/24 13:35:00 Anesthesia Type General General Surgical Service Anesthesia Anesthesia Wound Class 2 - Clean-Contaminated 2 - Clean-Contaminated Last Modified By: Lewis Armstrong Terry T 09/19/24 13:50:41 09/19/24 13:50:47 General Case Data FT Pre-Care Text: Classifies surgical wound, implements aseptic technique, initiates traffic control Entry 1 Case Information OR OR 1 FT Case Level Level 3 Wound Class 2 - Clean-Contaminated Specialty Anesthesia ASA Class 3 Preop Diagnosis LEFT KIDNEY STON (more content not included)...[facility] DaytonXR Urography Retrograde Lefton [id number] Urography Retrograde LeftExam Date/Time: 09/19/2024 13:37 EDT Reason for Exam: Kidney stone Report IMPRESSION: Intraoperative imaging. EXAMINATION/TECHNIQUE: XR Urography Retrograde Left HISTORY: Left retrograde. COMPARISON: None RESULT: Fluoroscopy provided for surgical procedure. Air Kerma (Ka,r): 5.1 mGy. No diagnostic images. Please refer to performing provider note for further details. Left retrograde with left stent placement. No other significant abnormality. Ordering Provider: RASTA DAVID FINAL REPORT Dictated: 09/20/2024 5:06 pm Rohan Ramires MD. Signed (Electronic Signature): 09/20/2024 5:06 pm Signed by: Rohan Ramires MD Transcribed by: SHEYLA Technologist: JERICA Technical Comments Radiation Dose: Ka,r in mGy = 5.10 DAP = 387.57 Fluoro Time: 38 seconds.[facility] DaytonCOAGULATIONOrdered By: Bozena Munoz on [id number] Coag (PPP) [Time]30.7 mWnblkj96.1 - 36.5 second(s)[facility] Auto CoagComment on above:Interpretive Data: Parameter 15 days - 4 weeks 1 - 5 months 6 - 11 months 1 - 5 years 6 - 10 years 11 - 17 years PTT Mean: 35.4 (27.6-45.6) Mean: 33.5 (24.8-40.7) Mean: 32.4 (25.1-40.7) Mean: 31.6 (24.0-39.2) Mean: 31.6 (26.9-38.7) Mean: 31.0 (24.6-38.4) Pediatric Reference ranges were obtained from a study by Jameson Islas et al. prepared from 1437 samples obtained at 7 different centers using the same coagulation reagent and instrumentation as [facility]. Currently there are no coagulation studies available worldwide for children to 14 days, andno normal ranges. Heparin therapeutic range (represented by Anti-Factor Xa activity of 0.2 - 0.4 U/mL) corresponds to PTT of 56.6 - 109.0 sec.INR Coag (PPP) [Relative time]1.08 {INR}Invalid Interpretation CodeJEFF[facility] [place] Auto CoagComment on above:Interpretive Data: INR results are specifically intended to assess patients stabilized on long-term Anticoagulation therapy suggested INR s Less Intensive Anticoagulation 2.0 3.0 Conventional Range 3.0 4.5PT Coag (PPP) [Time]12.1 sNormal9.4 - 12.5 second(s) [facility] Auto CoagComment on above:Interpretive Data: 15 days - 4 weeks 1 - 5 months 6 -11 months 1 5 years 6 10 years 11 -17 years Mean: 11.2 (9.5 12.6) Mean: 11.0 (9.7 12.8) Mean: 11.0 (9.8 13.0) Mean: 11.3 (9.9 13.4) Mean: 11.7 (10.0 14.6) Mean: 11.8 (10.0 - 14.1) Pediatric Reference ranges were obtained from a study by Jameson Islas et al. prepared from 1437 samples obtained at 7 different centers using the same coagulation reagent and instrumentation as [facility]. Currently there are no coagulation studies available worldwide for children to 14 days, andno normal ranges.Discharge Instructionson [id number] InstructionsDischarge Instructions SAIDA HOANG :1945 Visit Date:09/19/2024 Inpatient Discharge Instructions Your Care Team Admitting Physician - RASTA DAVID MD Referring Physician - RASTA DAVID MD Reason for Your Visit LEFT KIDNEY STONE Tests Performed Calculi Analysis Urinary -- Results Pending -- XR Chest 2 Views XR Urography Retrograde Left -- Results Pending -- Please visit your patient portal for your results or contact your primary care physician. Procedure History Total knee arthroplasty (09/19/2024), Colonoscopy (11/01/2023), Colonoscopy (06/05/2020), TURP - Transurethral resection of prostate (12/03/2015), Cystoscopy (11/17/2015), EGD - esophagogastroduodenoscopy (08/2015), Cystoscopy (11/02/2011), Cystoscopic laser lithotripsy of ureteric calculus (11/21/2008), Laser ablation of prostate (05/13/2008), Urodynamics (12/29/2005), Cystoscopy (12/06/2005), Colonoscopy (2003), Colonoscopy (1996), Cardiac catheterization, Carotid endarterectomy. What to do next Instructions From Your Doctor Event Name Event Result Discharge Instructions Freetext In 5 days remove stent. Sit on the toilet or stand ain the shower and urinate and pull the stent out at the time of urination-- take tylenol more before you do this. Hydrate vigorously with at least 2 L/day Pain control with Tylenol. Take your oxycodone for breakthrough Discharge Activity Ambulate as tolerated Discharge Restrictions No driving for 24 hrs Call Your Doctor For Temperature above 101.5 degrees, Persistent vomiting Wound Care Keep incision dry Remove Dressing On 5 Discharge Instructions Discharge Instructions New Follow Up Appointments after Discharge Follow Up with RASTA DAVID When: Comments: My nurse will Call you tomorrow to schedule a follwo up Where: [address] [place] [phone] Business (1) Medications What How Much When Instructions Next Dose New hyoscyamine (Levsin 0.125 mg SL Tab) 1 Tablets By Mouth 4 times a day as needed for for spasm Duration: 5 Days Pickup at [facility] New oxycodone (Roxicodone 5 mg Tab) 1 Tablets By Mouth Every 12 hours as needed for for pain Duration: 3 Days Pickup at [facility] Unchanged buPROPion (buPROPion 150 mg/ 24 hours XL Tab) 2 Tablets By Mouth Every day Unchanged ezetimibe (Zetia) 5 Milligram By Mouth Every day Unchanged finasteride (finasteride 5 mg Tab) 1 Tablets By Mouth Every day Unchanged folic acid (folic acid 1 mg Tab) 2 Tablets By Mouth Every day Unchanged montelukast (montelukast 10 mg Tab) 1 Tablets By Mouth Every day Unchanged omeprazole (omeprazole 40 mg Cap-DR) 1 Capsules By Mouth Every day Unchanged polyethylene glycol 3350 (MiraLax) 17 Gram By Mouth 2 times a day Unchanged potassium citrate (potassium CITRATE 10 mEq ER Tab) 1 Tablets By Mouth Every day Unchanged rosuvastatin (rosuvastatin 20 mg Tab) 1 Tablets By Mouth Every day Unchanged sacubitril-valsartan (Entresto 24 mg-26 mg oral tablet) 1 Tablets By Mouth Every day Unchanged tamsulosin (tamsulosin 0.4 mg Cap) 1 Capsules By Mouth Every day Pharmacy Information [facility]: [address] [phone] Devices Implanted/Removed This Visit Notice: You have devices implanted this visit that may not be MRI compatible. Implanted CYSTOSCOPY W/ HOMIUM LASER Ureter L CASCADE URETERAL STENT 09/19/2024 Education Materials Kidney Stones Kidney stones are rock-like masses that form inside of the kidneys. Kidneys are organs that make pee (urine). A kidney stone may move into other parts of the urinary tract, including: ??? The tubes that connect the kidneys to the bladder (ureters). ??? The bladder. ??? The tube that carries urine out of the body (urethra). Kidney stones can cause very bad pain and can block the flow of pee. The stone usually leaves your body through your pee. A doctor may need to take out the stone. What are the causes? Kidney stones may be caused by: ??? Too much calcium in the body. This may be caused by too much parathyroid hormone in the blood. ??? Uric acid crystals in the bladder. The body makes uric acid when you eat certain foods. ??? Narrowing of one or both of the ureters. ??? A kidney blockage that you were born with. ??? Past surgery on the kidney or the ureters. What increases the risk? You are more likely to develop this condition if: ??? You have had a kidney stone in the past. ??? Other people in your family have had kidney stones. ??? You do not drink enough water. ??? You eat a diet that is high in protein, salt (sodium), or sugar. ??? You are very overweight (obese). What are the signs or symptoms? Symptoms of a kidney stone may include: ??? Pain in the side of the belly, right (more content not included)...[facility] DaytonComment on above:Result Comment: Electronically Signed By: Agnieszka MALONE, Mick Morales\.br\Date and Time Signed: 09/19/24 14:43 EDTMain OR PACU I Recordon [id number] OR PACU I RecordMain OR PACU I Record PACU Phase I Document Type FT Summary Primary Physician: RASTA DAVID MD Finalized Date/Time: 09/19/24 14:30:49 Pt. Name: SAIDA HOANG/Sex: 1945 Male Med Rec #: [id number] Physician: RASTA DAVID MD Financial #: [id number] Pt. Type: A Room/Bed: [place] [address] Admit/Disch: 09/19/24 10:57:33 - Institution: Case Times PACU I FT Pre-Care Text: Identifies barriers to communication and implements measures to provide psychological support Develops individualized plan of care, and ensures continuity of care Maintains patient's dignity and privacy, and maintains patient confidentiality Identifies and reports philosophical, cultural, and spiritual beliefs and values Identifies individual values and wishes concerning care Implements aseptic technique, and administers prescribed antibiotic therapy and immunizing agents as ordered Evaluates postoperative tissue perfusion Implements thermoregulation measures, and monitors body temperature Evaluates postoperative respiratory status Evaluates postoperative cardiac status Evaluates postoperative neurological status Assesses pain control, collaborated in initiating patient-controlled analgesia and implements alternative methods of pain control Verifies allergies, administers prescribed medications and solutions, evaluates response to medications Entry 1 In PACU I 09/19/24 13:41:00 Discharge from PACU 09/19/24 14:11:00 I Outcomes Met? Yes Last Modified By: Emy Martinez RN 09/19/24 14:29:25 Post-Care Text: The patient demonstrates knowledge of the expected response to the operative or invasive procedure The patient's care is consistent with the individualized perioperative plan of care The patient's rightto privacy is maintained The patient's value system, lifestyle, ethnicity, and culture are considered, respected, and incorporated into the perioperative plan of care The patient participates in decisions affecting his or her perioperative plan of care The patient is free from signs and symptoms of infection The patient has wound/tissue perfusion consistent with or improved from baseline levels established preoperatively The patient is at or returning to normothermia at the conclusion of the immediate postoperative period The patient's respiratory function is consistent with or improved from baseline levels established preoperativelyThe patient's cardiovascular status is consistent with or improved from baseline levels established preoperatively The patient's cardiovascular status is consistent with or improved from baseline levels established preoperatively The patient demonstrates and/or reports adequate pain control throughout the perioperative period The patient received appropriate medication(s), safely administered during the perioperativeperiod Acuity Level PACU I FT Entry 1 Start Time 09/19/24 13:41:00 Stop Time 09/19/24 14:11:00 Acuity Level Acuity Level I Last Modified By: Emy Martinez RN 09/19/24 14:29:48 Finalized By: Emy Martinez RN Document Signatures Signed By: Emy Martinez RN 09/19/24 14:30 Emy Martinez RN 09/19/24 14:30[facility] DaytonMain OR PACU II Recordon [id number] OR PACU II RecordMain OR PACU II Record PACU Phase II Document Type FT Summary Primary Physician: RASTA DAVID MD Finalized Date/Time: 09/19/24 15:36:18 Pt. Name: SAIDA HOANG/Sex: 1945 Male Med Rec #: [id number] Physician: RASTA DAVID MD Financial #: [id number] Pt. Type: A Room/Bed: [place] [address] Admit/Disch: 09/19/24 10:57:33 - Institution: Case Times PACU II FT Pre-Care Text: Identifies barriers to communication and implements measures to provide psychological support and determines knowledge level Develops individualized plan of care, and ensures continuity of care Maintains patient's dignity and privacy, and maintains patient confidentiality Identifies and reports philosophical, cultural, and spiritual beliefs and values Identifies individual values and wishes concerning care administers prescribed antibiotic therapy and immunizing agents as ordered, Evaluates postoperative tissue perfusion Implements thermoregulation measures, and monitors body temperature Evaluates postoperative respiratory statusEvaluates postoperative cardiac status Evaluates postoperative neurological status Assesses pain control, collaborated in initiating patient-controlled analgesia and implements alternative methods of pain control Verifies allergies, administers prescribed medications and solutions, evaluates response to medications Entry 1 In PACU II 09/19/24 14:30:00 Discharge from PACU 09/19/24 15:30:00 II Outcomes Met? Yes Last Modified By: Mick Aaron RN 09/19/24 15:36:17 Post-Care Text: The patient demonstrates knowledge of the expected response to the operative or invasive procedure The patient's care is consistent with the individualized perioperative plan of care The patient's rightto privacy is maintained The patient's value system, lifestyle, ethnicity, and culture are considered, respected, and incorporated into the perioperative plan of care The patient participates in decisions affecting his or her perioperative plan of care. The patient is free from signs and symptoms of infection The patient has wound/tissue perfusion consistent with or improved from baseline levels established preoperatively The patient is at or returning to normothermia at the conclusion of the immediate postoperative period The patient's respiratory function is consistent with or improved from baseline levels established preoperativelyThe patient's cardiovascular status is consistent with or improved from baseline levels established preoperatively The patient's neurological status is consistent with or improved from baseline levels established preoperatively The patient demonstrates and/or reports adequate pain control throughout the perioperative period The patient received appropriate medication(s), safely administered during the perioperativeperiod Finalized By: Mick Aaron RN Document Signatures Signed By: Mick Aaron RN 09/19/24 15:36NoDay[facility] HospitalMain OR Preoperative Recordon [id number] OR Preoperative RecordMain OR Preoperative Record PreOp Document Type FT Summary Primary Physician: RASTA DAVID MD Finalized Date/Time: 09/19/24 13:07:44 Pt. Name: SAIDA HOANG/Sex: 1945 Male Med Rec #: [id number] Physician: RASTA DAVID MD Financial #: [id number] Pt. Type: A Room/Bed: [facility] Admit/Disch: 09/19/24 10:57:33 - Institution: Case Times PreOp FT Pre-Care Text: Verifies consent for planned procedure, identifies individual values and wishes concerning care, includes family members in perioperative teaching Entry 1 Patient Times. In Pre Surgery 09/19/24 11:00:00 Out Pre Surgery 09/19/24 12:50:00 Outcomes Met? Yes Last Modified By: Lewis Armstrong 09/19/24 13:07:42 Post-Care Text: The patient participates in decisions affecting his or her perioperative plan of care Finalized By: Lewis Armstrong Document Signatures Signed By: Lewis Armstrong 09/19/24 13:07[facility] DaytonOperative Report on [id number] ReportOperative Report Patient: SAIDA HOANG Age: 79 years Sex: Male : 1945 Associated Diagnoses: None Author: RASTA DAVID MD Procedure SURGEON: Rasta David MD PREOPERATIVE DIAGNOSIS: Left distal obstructing ureteral stone POSTOPERATIVE DIAGNOSIS: Same PROCEDURE: Cystoscopy, left ureteroscopy, left laser lithotripsy, left ureteral stent placement, left ureteral dilation, left retrograde pyelogram, left ureteral stone basketing FINDINGS: Impacted UVJ stone causing swelling at the ureteral orifice Retrograde pyelogram shows a distal filling defect secondary to the stone Cystoscopy demonstrated a prior TURP defect with moderate trabeculations of the bladder, small bladder diverticuli and cellules with no tumors or lesions noted, no obstructive prostatic lobes noted ANESTHESIA: LMA INTRAVENOUS FLUIDS: See anesthesia records ESTIMATED BLOOD LOSS: Minimal TUBES AND DRAINS: 6x26 cm double-J ureteral stent with strings SPECIMENS: Stones for analysis COMPLICATIONS: None INDICATIONS FOR PROCEDURE: Patient is a 79-year-old male with an impacted distal ureteral stone presenting for aforementioned procedure. H&P was reviewed, informed consent was obtained, patient understood risk, benefits, alternatives of the procedure and wished to proceed. OPERATIVE DETAIL: Patient was brought to the operative suite and placed on continuous pulse oximetry and cardiac monitoring anesthesia. IV antibiotics including 2 g of Ancef was administered. He was then placed in thedorsolithotomy position and prepped and draped in normal sterile fashion. Timeouts performed confirming patient, procedure, side, all in the room agreed. A well-lubricated 22 Greek cystoscopic sheath with a 30 degree lens was inserted into urethral meatus and advanced into the bladder. Upon entering the bladder we noted that the patient had moderate trabeculations with cellules and bladder diverticuli noted, no obstructive prostatic lobes with a prior TURP defect noted. We then directed our attention to the left ureteral orifice which we cannulated with a Glidewire and passed a dual-lumen catheter. We then passed a second wire blood prior to the shoulder retrograde pyelogram and findings as noted above. Then using a push pull technique we took the dual-lumen catheter out and over one of the wires went up with a semirigid into the distal ureter right at the UPJ where we found the impacted stone. We then lasered the stone into small submillimeter fragments that we were able to flush out. We then went all the way up to the proximal ureter with the scope I did not visualize any large stone fragments. We then obtained a 0 tip nitinol basket and basketed the slightly larger stone fragments for analysis. The stent we placed a 6 x 26 cm double-J ureteral stent visualizing a curl in therenal pelvis and a curl in the bladder. Patient bladder was then emptied. Patient was then awakenedby anesthesia and transferred to PACU in stable condition. Strings on the stent was taped to the head of the penis using benzoin and Steri-Strips. PLAN: Follow-up with me in 6 weeks with a KUB, renal ultrasoundNormalFisher University Of Maryland Rehabilitation & Orthopaedic InstituteComment on above:Result Comment: Electronically Signed By: GENOVEVA LAMA, RASTA\.br\Date and Time Signed: 09/19/24 14:12 EDTPT & PTT on [id number] Coag (PPP) [Time]30.7 second(s)Stuyor95.1-36.5Fisher [facility] Orthopaedic InstituteComment on above:Result Comment: Parameter 15 days - 4 weeks 1 - 5 months 6 - 11 months 1 - 5 years 6 - 10 years 11 - 17 years PTT Mean: 35.4 (27.6-45.6) Mean: 33.5 (24.8-40.7) Mean: 32.4 (25.1-40.7) Mean: 31.6 (24.0-39.2) Mean: 31.6 (26.9-38.7) Mean: 31.0 (24.6-38.4) Pediatric Reference ranges were obtained from a study by woo Govea al. prepared from 1437 samples obtained at 7 different centers using the same coagulation reagent and instrumentation as [facility]. Currently there are no coagulation studies available worldwide for children to 14 days, andno normal ranges. Heparin therapeutic range (represented by Anti-Factor Xa activity of 0.2 - 0.4 U/mL) corresponds to PTT of 56.6 - 109.0 sec.Performed By: #### [id number] ####[facility] [address] [place], [place] [address]LLM Coag (PPP) [Relative time]1.08 {INR}Invalid Interpretation CodeFishBaltimore VA Medical CenterComment on above:Result Comment: INR results are specifically intended to assess patients stabilized on long-term Anticoagulation therapy suggested INR???s ???Less Intensive Anticoagulation??? 2.0 ??? 3.0 Conventional Range 3.0 ??? 4.5Performed By: #### [id number] ####[facility] [address] [place], [place] [address]SQ Coag (PPP) [Time] 12.1 second(s)Normal9.4-12.5Fisher [facility] Orthopaedic InstituteComment on above:Result Comment: 15 days - 4 weeks 1 - 5 months 6 -11 months 1 ??? 5 years 6 ??? 10 years 11 -17 years Mean: 11.2 (9.5 ??? 12.6) Mean: 11.0 (9.7 ??? 12.8) Mean: 11.0 (9.8 ??? 13.0) Mean: 11.3 (9.9 ??? 13.4) Mean: 11.7 (10.0 ??? 14.6) Mean: 11.8 (10.0 - 14.1) Pediatric Reference ranges were obtained from a study by woo Govea al. prepared from 1437 samples obtained at 7 different centers using the same coagulation reagent and instrumentation as [facility]. Currently there are no coagulation studies available worldwide for children to 14 days, andno normal ranges.Performed By: #### [id number] ####[facility] [address] [place], [place] [address]AP Chest 2 Viewson [id number] Chest 2 ViewsExam Date/Time: 09/19/2024 11:27 EDT Reason for Exam: P.A.T. Report IMPRESSION: NO RADIOGRAPHIC EVIDENCE OF ACUTE INTRATHORACIC PROCESS. EXAMINATION: XR Chest 2 Views HISTORY: Preoperative evaluation. Patient denies any chest complaints at this time. TECHNIQUE: Frontal and lateral views of the chest. COMPARISON: None available FINDINGS: Scattered curvilinear and amorphous calcifications of both hemithoraces likely represent calcified pleural plaques. Cardiomediastinal silhouette is within normal limits. No pneumothorax, pleural effusion, or consolidation. Hyperinflation of the lungs and increased bronchovascular markings suggesting COPD. No acute osseous abnormality. Degenerative changes of the spine. Ordering Provider: Meño Kincaid FINAL REPORT Dictated: 09/19/2024 12:22 pm Latrice Bauman DO Signed (Electronic Signature): 09/19/2024 12:22 pm Signed by: Latrice Bauman DO Transcribed by: SHEYLA Technologist: ANANT Technical Comments Radiation Dose: Ka,r in mGy = na DAP = naNormalRiverview Health InstituteAmbulatory Visit Summaryon 09-17-2024 Ambulatory Visit SummaryAmbulatory Visit Summary SAIDA HOANG :1945 Visit Date:09/17/2024 Ambulatory Visit Instructions Your Diagnosis Ureteral stone with hydronephrosis BPH with urinary obstruction Your Care Team Attending Physician - GENOVEVA LAMA, RASTA Primary Care Physician - DG BALDWIN JR, [...] sacubitril-valsartan (Entresto 24 mg-26 mg oral tablet) tamsulosin (tamsulosin 0.4 mg Cap) Procedures Performed Colonoscopy (11/01/2023), Colonoscopy (06/05/2020), TURP - Transurethral resection of prostate (12/03/2015), Cystoscopy (11/17/2015), EGD - esophagogastroduodenoscopy (08/2015), Cystoscopy (11/02/2011), Cystoscopic laser lithotripsy of ureteric calculus (11/21/2008), Laser ablation of prostate (04/21), Urodynamics (12/29/2005), Cystoscopy (12/06/2005), Colonoscopy (2003), Colonoscopy (1996),Cardiac catheterization, Carotid endarterectomy. Discharge Vitals Heart Rate (Peripheral) 81 Blood Pressure 138/91 Height 188 cm Height 74 in Weight 113.5 kg Weight 249.7 lb BMI 32.11 What to do next Scheduled Follow-Up Appointments 2023 2:00 PM EDT Where: [facility] You Need to Schedule the Following Appointments Follow Up with GENOVEVA LAMA, EMMY MAGDALENO When: Where: Medications What How Much When Instructions Unchanged buPROPion (buPROPion 150 mg/ 24 hours XL Tab) 3 Tablets By Mouth Every day Contact prescribing physician if questions or concerns Unchanged doxepin as directed Contact prescribing physician if questions or concerns Unchanged ertugliflozin (Steglatro 5 mg oral tablet) 1 Tablets By Mouth Once a day (in the morning)Contact prescribing physician if questions or concerns Unchanged [...] prescribing physician if questions or concerns Unchanged tamsulosin (tamsulosin 0.4 mg Cap) Contact prescribing physician if questions or concerns [...] Type 2 diabetes mellitus controlled by diet Ureteral stone with hydronephrosis Urge incontinen (more content not included)...[facility] Urology Office/Clinic Noteon [id number] Office/Clinic NoteUrology Office/Clinic Note Chief Complaint new patient [facility] Staff 79 year old male here for follow up to the [facility] 09/10/24 due to left lower quadrant pain Patient scheduled for Cysto/urs/laser litho/stent 09/19/24 Dysuria: no Incomplete bladder emptying: no Hematuria: no Frequency: no Urgency:severe Nocturia: 1-2x Stream:slow weak stream the last day states he feels like there is something blocking Leaking: no Post void dripping: no Wearing pads/ Depends: no Urge incontinence: no Stress incontinence: no Incontinence without Sensory Awareness: no Abdominal pain: no Flank pain: left side radiating to lower stomach Sexual complaints: no History of Present Illness Tests reviewed: reviewed UA, ER records, CT, KUB, labs, PSA. I have reviewed the previous health record information and history for this patient from external provider. I have reviewed and verified the staff HPI to be accurate for this encounter. There have been no associated fever, chills, flank pain, or blood in the urine. Denies any urinary infections since last encounter. Review of Systems PHQ Score Initial Depression Screen Score: 3 SCORE ROS - Provider Constitutional: denies weight loss, denies hot flashes. Eyes: denies eye problems. Gastrointestinal: denies nausea, denies vomiting. Cardiovascular: denies chest pain or angina. Integumentary: no dryness Musculoskeletal: denies musculoskeletal symptoms. ENMT: denies otolaryngeal symptoms. Respiratory: no shortness of breath. Heme/Lymph: denies easy bleeding tendency, denies easy bruising tendency. Psychiatric: no confusion, no anxiety. Genitourinary: See HPI. Physical Exam Vitals & Measurements HR: 81(Peripheral) BP: 138/91 HT: 74 in HT: 188 cm WT: 113.5 kg WT: 249.7 lb BMI: 32.11 General Appearance: alert, no distress, well nourished, well developed male. Head: normocephalic . Eyes: normal orbit and globe. ENMT: normal examination of external ears. Skin: warm, dry, no bruising. Psychiatric: cooperative, affect appropriate for age, normal judgement, euthymic mood. Assessment/Plan 79 yo male new to our office for f/up to [facility] ER for ureteral stone. Pt accompanied by today. Used to see Dr. Shetty years ago. Not on AC. MEGAN 1 Portions of this record may have been created with voice recognition artificial intelligence software, specifically [employer], [employer] and or [employer]. Substitutions may have occurred due to the inherent limitations of voice recognition and artificial intelligence software. 1. Ureteral stone with hydronephrosis (N13.2: Hydronephrosis with renal and ureteral calculous obstruction) Pt presented to [facility] ER 09/10/24 with L lower quadrant pain. CT AP wo con 09/10/24 - essentially stable positioning of the distal L 7 mm ureteral stone resulting in mild hydronephrosis. Labs ~Cr 2.29, eGFR 28 ER discharged pt home with Flomax. KUB 09/17/24 TBH - stable 7 mm stone within distal ureter near the UVJ. UA today shows trace-intact blood and trace leuks. Is having intermittent pain. Denies gross hematuria. Pt states he is unable to take Ibuprofen as instructed by external provider. Recommended pt to take Tylenol. Pt is scheduled for cysto, L URS, laser lithotripsy, L stent placement 09/19/24. The procedural risks, benefits, details, and treatment alternatives have been discussed with the patient. These include bleeding, infection, inability to break or retrieve all of the stone, injury to the ureter (the tube which connects the kidney to the bladder), injury to the kidney scarring of the ureter, and need for repeat procedures, among others. Admits to hx of stones. ER note states pt has always passed stones naturally however pt states today that he has had a stent in the past. -Routine Tylenol even if pain free until stone is treated, cont Flomax 0.4mg qd -Proceed with cysto, L URS, laser litho, L stent placement (string) as scheduled 2. BPH with urinary obstruction (N40.1: Benign prostatic hyperplasia with lower urinary tract symptoms) PSA: 09/17/15 - 0.56 09/19/16 - 0.47 12/05/18 - 0.52 IPSS 23 Taking Finasteride 5mg qd through primary care. Unsure how long he has been taking this. Will discuss urination further once stone is treated. Follow-up With When Contact Information RASTA DAVID MD, URKamlesh Additional Instructions: Proceed with laser lithotripsy Patient Education Ureteroscopy I, Jaycee Loza, personally scribed for Dr. Fatima on 09/17/2024 13:19:58. . Problem List/Past Medical History Ongoing Aortic aneurysm Benign neoplasm of descending colon BMI 28.0-28.9,adult BPH with urinary obstruction Carotid atherosclerosis Depressive disorder Diverticulosis Former smoker Generalized anxiety disorder GERD (gastroesophageal reflux disease) Heart failure History of kidney stones Hyperlip (more content not included)...[facility] DaytonComment on above:Result Comment: Electronically Signed By: RASTA DAVID MD\.br\Date and Time Signed: 09/17/24 13:26 EDTAmbulatory Visit Summaryon [id number] Visit Summary SAIDA HOANG :1945 Visit Date:11/14/2023 [...] ureteric calculus (11/21/2008), Laser ablation of prostate (04/21), Urodynamics (12/29/2005), Cystoscopy (12/06/2005), Colonoscopy (2003), Colonoscopy (1996),Cardiac catheterization, Carotid endarterectomy. Medications What How Much When Instructions Unchanged buPROPion (buPROPion 150 mg/ 24 hours XL Tab) 3 Tablets By Mouth Every day Contact prescribing physician if questions or concerns Unchanged doxepin as directed Contact prescribing physician if questions or concerns Unchanged ertugliflozin (Steglatro 5 mg oral tablet) 1 Tablets By Mouth Once a day (in the morning)Contact prescribing physician if questions or concerns Unchanged [...] you for choosing us for your care. [facility] Surgery Office/Clinic Noteon 24-16-1286Bgjkmpo Surgery Office/Clinic NoteChief Complaint colonoscopy follow up HPI Staff 13 [...] swallowing difficulties, no hearing loss, no ear infection(s),no nose bleeds. Cardiovascular: normal blood pressure, no [...] Diverticulosis of large intestine without perforation or abscesswithout bleeding) high fiber diet and daily fiber [...] ureteric calculus (11/21/2008), Laser ablation of prostate (04/21), Urodynamics (12/29/2005), Cystoscopy (12/06/2005), Colonoscopy (2003), Colonoscopy (1996),Cardiac catheterization, Carotid endarterectomy. Medications buPROPion 150 mg/24 [...] 01/27/2021 Recorded SARS-CoV-2 (COVID-19) mRNA-1273 vaccine 12/30/2020 RecordedNoDayton Osteopathic HospitalComment on above:Result Comment: Electronically Signed By: SERGIO LAMA, Daniel Araujo\Date and Time Signed: 11/14/23 14:42 ESTRharman 11-14-2023 Reminders From: Karly Workman LPN To: N - Clinical; Sent: 11/14/2023 15:07:51 EST Show up: 10/02/2028 07:00:00 EST Subject: colonoscopy recall Due Date/Time: 11/01/2028 07:00:00 EST Reminder/Recall Patient due for surveillance colonoscopy 11/01/2028 due to history of tubular adenoma.NormalRiverview Health InstituteOutside Colonoscopyon [id number] [id number]#1.00TIFClermont County HospitalPathology Noteon 67-24-5557Huqpeupjv Note [id number]#1.00TIFClermont County HospitalConsent for Procedure/Surgeryon 01-04-3642Bgjslrc for Procedure/Surgery [id number]#1.00TIFClermont County HospitalFacesheeton 21-38-7544Wuvcuusws [id number]#1.00TIFFNormalRiverview Health InstituteAmbulatory Visit Summaryon [id number] Visit Summary SAIDA HOANG :1945 Visit Date:10/10/2023 [...] By Mouth Once a day (in the morning)Contact prescribing physician if questions or concerns Unchanged [...] you for choosing us for your care. Lyudmila [facility] Orthopaedic InstituteCULTURE URINEon 03-04-2022 CULTURE URINECulture Observations: METHICILLIN RESISTANT STAPH EPIDERMIDIS ISOLATED. Culture Observations: [...] Trimethoprim/Sulfamethoxazole 160 R F Oxacillin <=0.25 R FNormalThe [facility]zer HospitalComment on above:Performed By: #### URCX #### [facility] [address] [place] [address] Dr. Yogi Bush AUTO DIFFon 27-62-2089YRNE #0.1 103/ulNormal0.0-0.1The [facility] HospitalComment on above:Performed By: #### CBC #### [facility] [address] [place] [address] Dr. Yogi Maldonadosophils/100 WBC (Bld)0.4 %Normal0.2-2.0[facility] Comment on above:Performed By: #### CBC #### [facility] [address] [place] [address] Dr. Yogi Maria #0.5 103/ulNormal0.0-0.7The [facility] HospitalComment on above: Performed By: #### CBC #### [facility] [address] [place] [address] Dr. Yogi Combsosinophils/100 WBC (Bld)2.9 %Normal0.9-7.0[facility] Comment on above:Performed By: #### CBC #### [facility] [address] [place] [address] Dr. Yogi Combsrythrocyte distribution width (RBC) [Ratio]14.2 %Ifctay00.0-15.0 The [facility] HospitalComment on above:Performed By: #### CBC #### [facility] [address] [place] [address] Dr. Yogi PascualHematocrit (Bld) [Volume fraction]44.9 %Vumiel13.0-54.0The [facility] HospitalComment on above:Performed By: #### CBC #### [facility] [address] [place] [address] Dr. Yogi PascualHemoglobin (Bld) [Mass/Vol]14.9 g/tWWqpjxj95.0-18.0The [facility] HospitalComment on above:Performed By: #### CBC #### [facility] [address] [place] [address] Dr. Yogi Jara #0.05 10e3/ulCritically high0.00-0.03[facility] Comment on above:Performed By: #### CBC #### [facility] [address] [place] [address] Dr. Yogi Jara %0.3 %Normal0.0-0.5The [facility] HospitalComment on above: Performed By: #### CBC #### [facility] [address] [place] [address] Dr. Yogi Gallegos #1.3 103/ulNormal1.2-3.8The [facility] HospitalComment on above:Performed By: #### CBC #### [facility] [address] [place] [address] Dr. Yogi Borjahocytes/100 WBC (Bld)8.3 %Critically low20.5-60.0The [facility] HospitalComment on above:Performed By: #### CBC #### [facility] [address] [place] [address] Dr. Yogi Sadler DIFF REQNONormalThe [facility]zer HospitalComment on above: Performed By: #### CBC #### [facility] [address] [place] [address] Dr. Yogi Holden (RBC) [Entitic mass]29.0 fvCgmrep73.9-34.0The [facility] HospitalComment on above:Performed By: #### CBC #### [facility] [address] [place] [address] Dr. Yogi Holden (RBC) [Mass/Vol]33.2 g/vAZkxynq15.9-35.2The [facility] HospitalComment on above:Performed By: #### CBC #### [facility] [address] [place] [address] Dr. Yogi Doran (RBC) [Entitic vol]87.5 fEPjwnns05.0-94.0The [facility] HospitalComment on above:Performed By: #### CBC #### [facility] [address] [place] [address] Dr. Yogi Lepe #1.4 103/ulCritically high0.3-0.8ThCleveland Clinic [facility] Comment on above:Performed By: #### CBC #### [facility] [address] [place] [address] Dr. Yogi Salguero/100 WBC (Bld)9.4 %Normal1.7-12.0[facility] Comment on above:Performed By: #### CBC #### [facility] [address] [place] [address] Dr. Yogi Hendrix #12.0 103/ulCritically high1.4-6.5ThCleveland Clinic Hillcrest Hospital Comment on above:Performed By: #### CBC #### [facility] [address] [place] [address] Dr. Yogi Leungophils/100 WBC (Bld)78.7 %Critically high43.0-75.0The [facility] HospitalComment on above:Performed By: #### CBC #### [facility] [address] [place] [address] Dr. Yogi PascualPlatelet mean volume (Bld) [Entitic vol]9.7 fLNormal9.5-13.5The [facility] HospitalComment on above:Performed By: #### CBC #### [facility] [address] [place] [address] Dr. Yogi PascualPLT297 103/kcEloqwk339-944Yxy [facility] HospitalComment on above: Performed By: #### CBC #### [facility] [address] [address] [address] Yogi PascualRBC5.13 106/ulNormal4.70-6.10The [facility] HospitalComment on above:Performed By: #### CBC #### [facility] [address] [place] [address] Dr. Yogi PascualWBC15.3 103/ulCritically high4.0-11.0The [facility] HospitalComment on above:Performed By: #### CBC #### [facility] [address] [place] [address] Dr. Yogi PascualCT ABD/PELVIS WO CONon [id number] ABD/PELVIS WO CONEXAMINATION: CT ABD/PELVIS WO CON, 03/01/2022 9:42 PM [...] Electronically authenticated by: LATRICE HUDSON Date: 2022-03-01 23:38[facility] URINE PROFILEon [id number] Ql (U)SMALLAbnormal NEGATIVECleveland Clinic South Pointe HospitalComment on above:Performed By: #### ROSEANN, ERUR #### [facility] [address] [address] [address] Yogi Lott (U)CLEARNormalCLEARCleveland Clinic South Pointe HospitalComment on above: Performed By: #### ROSEANN, ERUR #### [facility] [address] [address] [address] Yogi Durant (U)YELLOWNormalYELLOWCleveland Clinic South Pointe HospitalComment on above: Performed By: #### ROSEANN, ERUR #### [facility] [address] [address] [address] Yogi Nunez micrscopic examination will be performed if indicated. NormalCleveland Clinic South Pointe HospitalComment on above:Performed By: #### ROSEANN, ERUR #### [facility] [address] [address] [address] Yogi Castellonose Ql (U)NegativeNormalNEGATIVECleveland Clinic South Pointe HospitalComment on above:Performed By: #### UMICRO, ERUR #### [facility] [address] [address] [address] Yogi PascualHemoglobin Ql (U)LARGEAbnormalNEGATIVECleveland Clinic South Pointe Hospital Comment on above:Performed By: #### KOKORO, ERUR #### [facility] [address] [address] [address] Yogi PascualKetkiki Ql (U)NegativeNormalNEGATIVECleveland Clinic South Pointe HospitalComment on above:Performed By: #### ROSEANN, ERUR #### [facility] [address] [address] [address] Yogi PascualLEUKOCYTESSMALLAbnormalNEGATIVEThe [facility] HospitalComment on above:Performed By: #### ROSEANN ERUR #### [facility] [address] [address] [address] Yogi Benavidestrite Ql (U)PositiveAbnormalNEGATIVECleveland Clinic South [facility]inte Hospital Comment on above:Performed By: #### ROSEANN ERUR #### [facility] [address] [place] [address] Dr. Yogi PascualpH (U)5.0 [pH]Normal5-9The [facility] HospitalComment on above: Performed By: #### ROSEANN ERUR #### [facility] [address] [place] [address] Dr. Yogi PascualProtein (U) [Mass/Vol]100 mg/dLAbnormalNEGATIVE/ TRACEThe [facility]zer HospitalComment on above:Performed By: #### ROSEANN ERUR #### [facility] [address] [place] [address] Dr. Yogi PascualSPEC GRAVITY1.243Wxlsvnqo3.005-<=1.025The [facility] Comment on above:Performed By: #### ROSEANN ERUR #### [facility] [address] [place] [address] Dr. Yogi Pillai MICRO INDINDICATEDNormalThe [facility]zer HospitalComment on above: Performed By: #### ROSEANN ERUR #### [facility] [address] [place] [address] Dr. Yogi Riverabilinogen Qn (U)1.0 {Bowen'U}/dLNormal0.2 - 1.0The [facility] HospitalComment on above:Performed By: #### ROSEANN ERUR #### [facility] [address] [place] [address] Dr. Yogi PascualPROF CHEM 8 (BAS METB)on 44-02-2260Vchfx gap [Moles/Vol]15.5 mmol/LNormalThe [facility] HospitalComment on above:Performed By: #### BMP #### [facility] [address] [address] [address] Yogi PascualCalcium [Mass/Vol]9.7 mg/dLNormal8.5-10.1[facility] Comment on above:Performed By: #### BMP #### [facility] [address] [address] [address] Yogi PascualChloride [Moles/Vol]107 mmol/HEzxbsz66-207Asi [facility] Comment on above:Performed By: #### BMP #### [facility] [address] [address] [address] Yogi PascualCO2 [Moles/Vol]22.4 mmol/MPlztbq92.0-30.0[facility] Comment on above:Performed By: #### BMP #### [facility] [address] [address] [address] Yogi PascualCreatinine [Mass/Vol]1.91 mg/dLCritically high0.66-1.25The [facility] HospitalComment on above:Performed By: #### BMP #### [facility] [address] [address] [address] Yogi CombsGFR-AF KHOQQRQA59 mL/min/1.79b1Qxpoqtoyae low>=60The [facility] HospitalComment on above:Performed By: #### BMP #### [facility] [address] [address] [address] Yogi CombsGFR-NON AF DQQVOPGQ59 mL/min/1.59v4Umdxonjrjs low>=60The [facility] HospitalComment on above:Performed By: #### BMP #### [facility] [address] [address] [address] Yogi PascualGlucose [Mass/Vol]113 mg/dLCritically diua26-118Wwj [facility] HospitalComment on above:Performed By: #### BMP #### [facility] [address] [address] [address] Yogi PascualPotassium [Moles/Vol]3.9 mmol/LNormal3.4-5.0The [facility] Comment on above:Performed By: #### BMP #### [facility] [address] [address] [address] Yogi Mchughdium [Moles/Vol]141 mmol/ZCauqsw436-443Ncv [facility] Comment on above:Performed By: #### BMP #### [facility] [address] [address] [address] Yogi Duckworth nitrogen [Mass/Vol]26.0 mg/dLCritically high7.0-18.0[facility] Pointe HospitalComment on above:Performed By: #### BMP #### [facility] [address] [address] [address] Yogi Duckworth nitrogen/Creatinine [Mass ratio]13.6 mg/mgNoTriHealth Bethesda Butler HospitalComment on above:Performed By: #### BMP #### [facility] [address] [place] [address] Dr. Yogi Rousseau MICROSCOPIC ONLYon [id number]E SEEN The [facility]zer HospitalComment on above:Performed By: #### ROSEANN ERUR #### [facility] [address] [place] [address] Dr. Yogi Hoffman identified Cx Nom (U)INDICATEDProMedica Fostoria Community HospitalComtrinity health [facility] on above:Performed By: #### ROSEANN ERUR #### [facility] [address] [place] [address] Dr. Yogi Reyna SEENNormalNONE SEENCleveland Clinic South Pointe HospitalComtrinity health [facility] on above:Performed By: #### ROSEANN ERUR #### [facility] [address] [address] [address] Yogi Perez LM Nom (Urine sed)NONE SEENNormalNONE SEENCleveland Clinic South Pointe HospitalComtrinity health [facility] on above:Performed By: #### ROSEANN, ERUR #### [facility] [address] [place] [address] Dr. Calix ChangEpithelial cells LM Ql (Urine sed)NONE SEENNormalNONE SEEN /RARE The [facility] HospitalComment on above:Performed By: #### KOKORO, ERUR #### [facility] [address] [address] [address] Yogi Davis SEENNormalNONE SEENThe [facility] on above:Performed By: #### KOKORO, ERUR #### [facility] [address] [address] [address] Yogi VogtEyiodPTU19-092Tqstitjh3-8Kgr [facility] HospitalComtr[facility] on above: Performed By: #### ROSEANN, ERUR #### [facility] [address] [address] [address] Yogi PascualHydkeGHP79-06SijbxnqoTZUX SEENThe [facility] on above: Performed By: #### ROSEANN, ERUR #### [facility] [address] [address] [address] Yogi PascualMRI LSPINE WO CONon [id number] [facility] WO CONEXAMINATION: MRI LSPACHUTA WO CON HISTORY: Degeneration of lumbar intervertebral [...] Electronically authenticated by: STACEY BILLS Date: 2021-09-07 14:[facility] Vital Signs Date TimeVital SignValuePerforming EvtcqhjjfJuqawkzb81-53-4564 13:05-0500Blood Pressure LocationKWABENA NKANSAH-AMANKRA [facility] [address] 289692-19-2024 13:05-0500Diastolic blood uadkludy35 mm[Hg]RASTA NKANSAH-AMANKRA [facility] [address] 289692-19-2024 13:05-0500Heart rate73 /minKWABENA NKANSAH-AMANKRA [facility] [address] [place] 289692-19-2024 13:05-0500Systolic blood mm[Hg]RASTA NKANSAH-AMANKRA [facility] [address] 289690-31-2024 15:03-0400Diastolic blood viphlozg04 mm[Hg]ARSTA NKANSAH-AMANKRA [facility]10-31-2024 15:03-0400Heart rate62 /minKWABENA NKANSAH-AMANKRA [facility]10-31-2024 15:03-0003UzB6% (BldA) [Mass fraction]99 %RASTA NKANSAH-AMANKRA [address] [place], [place] 0122210-31-2024 15:03-0400 Systolic blood mm[Hg]RASTA NKANSAH-AMANKRA [address] [place], [place] 0122210-31-2024 14:24-0400Heart rate61 /minKWABENA NKANSAH-AMANKRA [address] [place], [place] 0122210-31-2024 14:24-8863BnU7% (BldA) [Mass fraction]99 %RASTA NKANSAH-AMANKRA [address]10-31-2024 14:21-0400 Diastolic blood hgvewyja44 mm[Hg]RASTA NKANSAH-AMANKRA [address] [place], [place] 0122210-31-2024 14:21-0400Mean blood sdppbicg808 mm[Hg]RASTA NKANSAH-AMANKRA [address] [place], [place] 0122210-31-2024 14:21-0400 Systolic blood gyndtrpn158 mm[Hg]RASTA NKANSAH-AMANKRA [address] [place], [place] 0122210-31-2024 14:06-0400Blood Pressure LocationKWABENA NKANSAH-AMANKRA [address] [place], [place] 0122210-31-2024 14:06-0400Body pmvbxcpfjaf03.7 [degF]RASTA NKANSAH-AMANKRA [address] [place], [place] 0122210-31-2024 14:06-0400 Diastolic blood tahrlpfj54 mm[Hg]RASTA NKANSAH-AMANKRA [address] [place], [place] 012[address]10-31-2024 14:06-0400Heart rate56 /minKWABENA NKANSAH-AMANKRA [address] [place], [place] 012[address]10-31-2024 14:06-0400 Respiratory rate13 /minCHRISTINABENA NKANSAH-AMANKRA [address] [place], [place] 012[address]10-31-2024 14:06-3932LeX6% (BldA) [Mass fraction]97 %RASTA NKANSAH-AMANKRA [address]10-31-2024 14:06-0400 Systolic blood ovdkshsq375 mm[Hg]RASTA ALVARADOANSAH-AMANKRA [address] [place], [place] 0422610-31-2024 13:56-0400Blood Pressure LocationKGARETH ALVARADOANSAH-AMANKRA [address]10-31-2024 13:56-0400 Respiratory rate13 /AlenNA CHRISTIANOANSAH-AMANKRA [address] [place], [place] 012[address]10-31-2024 13:51-0400Blood Pressure LocationKGARETH NKANSAH-AMANKRA [address] [place], [place] 012[address]10-31-2024 13:51-0400 Respiratory rate24 /Tita ALVARADOANSAH-AMANKRA [address] [place], [place] 012[address]10-31-2024 13:41-0400Body .52 [degF]RASTA NKANSAH-AMANKRA [address]10-31-2024 11:36-0400Mean blood nobjhhef686 mm[Hg]RASTA NKANSAH-AMANKRA [address] [place], [place] 012[address]10-31-2024 11:34-0400Mean blood ilqnedvx808 mm[Hg]RASTA NKANSAH-AMANKRA [facility]10-31-2024 11:33-0400 Respiratory rate20 /minRASTA ALVARADOANSAH-AMANKRA [facility]10-31-2024 11:33-0400Body ycaeganondd54.34 [degF]RASTA ALVARADOANSAH-AMANKRA [facility]10-29-2024 13:07-0400Blood Pressure LocationKGARETH NKANSAH-AMANKRA [facility] [place] 025260-29-2024 13:07-0400Diastolic blood xufcefux48 mm[Hg]RASTA ALVARADOANSAH-AMANKRA [facility] [address] [place] 025260-29-2024 13:07-0400Heart rate81 /Tita ALVARADOANSAH-AMANKRA [facility] [address] [place] 025260-29-2024 13:07-0400Systolic blood neelwgjn710 mm[Hg]RASTA ALVARADOANSAH-AMANKRA [facility] Encounters Encounter DateEncounter TypeCare ProviderFacilityStart: 11-07-2024 End: 31-33-5045duzpmqvedhGLPJFJR CHRISTIANOANSAH-AMANKRAFacility:EU [place]walkStart: 11-07-2024 End: 40-37-2064Hzbbesa encounter procedureRASTA SOUSAAH-AMANKRA [facility] Start: 11-06-2024 End: 15-00-3413befzkosswkSR RASTADYLAN ALVARADOANSAH-AMANKRAFacility:FTMCStart: 11-06-2024 End: 80-30-4758Jwlgejz encounter procedureKGARETH CHRISTIANOJENNA-AMANKRA [facility] Start: 09-27-2024 End: 24-83-4286ffssbwowrhZX KWABENA NKANSAH-AMBECCARAFacility:FTMCStart: 09-27-2024 End: 10-08-5395Sdbenwl encounter procedureRASTA DAVID [facility] Start: 09-19-2024 End: 31-46-9812Xnyrwqsgr to same day surgery [place]RA[place] DAV[place] [facility] Start: 09-19-2024 End: 58-13-1805chtzuthvmvKXHUIRJ NKANSAH-AMBECCARAFacility:FTMCStart: 09-17-2024 End: 35-57-8554gcujphrokxZEXHAKX NKANSAH-AMBECCARAFacility:EU kStart: 09-17-2024 End: 01-13-4493Aqpvxpx encounter procedureRASTA DAVID [facility] Start: 42-18-1787wzvzuxezzbYjcpgnt R WATERSFacility:EU evueStart: 03-21-2024 End: 21-30-5821zdpssaemdfVCMVVSG L VALONE [facility] HospitalStart: 02-15-2024 End: 62-09-4877ofsbsfkvfiMAUDJLQ L VALONE [facility] HospitalStart: 11-14-2023 End: 94-92-6747oqejlbeidePmxnrmx R NILLFacility:GS BellevueStart: 11-14-2023 End: 09-37-9492Nydjfup encounter procedureMichael R NILL General Surgery Nill/Said Eriberto Start: 11-01-2023 End: 60-36-2084nkuoyufaoaUgmpgjo R NILLFacility:CD:[id number]: 10-10-2023 End: 42-19-3417vmhrdpzufbXGCXFSC VALONEFacility:GS BellevueStart: 03-01-2022 End: 77-25-5100glzqwzfbowSQ MARIS MARKERFacility:U3Tgxmb: 09-07-2021 End: 94-00-8709qiyjwxoyrlKZ DG VALONEFacility:H1 Procedures DateProcedureProcedure DetailPerforming ClinicianStart: 31-43-9642Mtvephqjhj RASTABALDEMAR DAVID Start: 72-18-8071Psdon knee replacementKGARETH SOUSANthDegree Technologies WorldwideBRUCE Start: 31-07-9495UheuoxdyjynKnodfpw NILL Start: 83-70-5624DhhdmxgaljfFezjnfr NILL Start: 56-71-0022Drburqyqlxbys prostatectomyMichael NILL Start: 61-79-2724XzvvsgjjeiDqfxqtb NILL Start: 75-48-6844VuvvnmgdffxphpwldegbsydrvgNyodghj NILL Start: 29-52-8491FxrakevaqgGlyafxq NILL Start: 30-01-0823Cilpovkshhs laser lithotripsy of ureteric calculusMichael NILL Start: 47-96-6568Nganb ablation of prostateMichael NILL Start: 91-36-9763Ztqcrxwdtk studiesMichael NILL Start: 17-54-3676RtuxfynwfkPtjgzos NILL Start: 90-30-2894HchkkjgqvoyJtlencm NILL Start: 60-69-0638UgkdonrmwfpGlkuxgv NILL Cardiac catheterizationMichael NILL Carotid endarterectomyMichael NILL Immunizations Immunization DateImmunizationNotesCare MvtpvcsbRyyxtqju81-75-7579ojfsqapdw virus vaccine, unspecified formulationMichael NILL General Surgery Mqucxjxf86-98-3672SVDL-AkJ-8 (COVID-19) mRNA-1273 vaccineMichael NILL [phone]-SmuzpSalem City Hospital [facility] [place] 10-80-8707NLAI-CoV-2 (COVID-19) mRNA-1273 vaccineMichael NILL [phone]-XxdkkSalem City Hospital [facility] [place] Payers DatePayer CategoryPayerPolicy [id number] 1958Unknown [id number] .[id number]. [id number] .[id number] .[id number] .[id number] .[id number] 2.16.840.1.015392.3.57[id number] 2.16.840.1.092913.3.57[id number] 2.16.840.1.529282.3.57[id number] 2.16.840.1.729600.3.57[id number] 2.16.840.1.373062.3.57[id number] 2.16.840.1.230000.3.57[id number] 2.16.840.1.925840.3.57[id number] 2.16.840.1.754601.3.57[id number] 2.16.840.1.353901.3.579.2.727 Social History DateTypeDetailFacilityStart: 10-10-2023 End: 11-54-5513Kdogopz smoking statusEx-smoker (finding)General Surgery [place] Tobacco smoking statusNeverGeneral Surgery BellevueSex Assigned [facility] Medical Equipment Procedure CodeEquipment CodeEquipment Original TextEquipment IdentifierDates CYSTOSCOPY W/ HOMIUM TUNG DAVID MD, RASTA 09/19/24 Unknown Ureter L FDAStart: 60-74-8186IWOVGSXXNG W/ LESLIEIUM TUNG DAVID MD, RASTA 09/19/24 Unknown Ureter LFDAStart: 78-90-7910VULWRRHKPA Krystina/ CHANELL BARRERA MD, RASTA 09/19/24 Unknown Ureter LFDAStart: 96-00-8449IDGIMAUTJD W/ HOMIUM LASER GENOVEVA LAMA, RASTA 09/19/24 Unknown Ureter LFDAStart: 09-19-2024 Functional Status DtqbPreuirtrruRfykkzLqwljoah35-32-2202Glsazamhgj StatusN/AExec[facility] [place] 025260-29-2024Functional StatusN/AExec[facility] [place] 025260-29-2024Functional StatusNo [facility] Clinical Notes 10-10-2023 to 11-07-2024 Note Date & NebrFggmXwbdapau71-54-1448 Hospital Discharge instructions Patient Education 11/07/2024 13:14:00 Benign Prostatic Hyperplasia Benign Prostatic Hyperplasia Benign prostatic hyperplasia (BPH) is an enlarged prostate gland that is caused by the normal agingprocess. The prostate may get bigger as a man gets older. The condition is not caused by cancer. The prostate is a walnut-sized gland that is involved in the production of semen. It is located in front of the rectum and below the bladder. The bladder stores urine. The urethra carries stored urine ou t of the body. An enlarged prostate can press on the urethra. This can make it harder to pass urine. The buildup of urine in the bladder can cause infection. Back pressure and infection may progress to bladder damage and kidney (renal) failure. What are the causes? This condition is part of the normal aging process. However, not all men develop problems from thiscondition. If the prostate enlarges away from the urethra, urine flow will not be blocked. If it enlarges toward the urethra and compresses it, there will be problems passing urine. What increases the risk? This condition is more likely to develop in men older than 50 years. What are the signs or symptoms? Symptoms of this condition include: Getting up often during the night to urinate. Needing to urinate frequently during the day. Difficulty starting urine flow. Decrease in size and strength of your urine stream. Leaking (dribbling) after urinating. Inability to pass urine. This needs immediate treatment. Inability to completely empty your bladder. Pain when you pass urine. This is more common if there is also an infection. Urinary tract infection (UTI). How is this diagnosed? This condition is diagnosed based on your medical history, a physical exam, and your symptoms. Tests will also be done, such as: A post-void bladder scan. This measures any amount of urine that may remain in your bladder after you finish urinating. A digital rectal exam. In a rectal exam, your health care provider checks your prostate by putting a lubricated, gloved finger into your rectum to feel the back of your prostate gland. This exam detects the size of your gland and any abnormal lumps or growths. An exam of your urine (urinalysis). A prostate specific antigen (PSA) screening. This is a blood test used to screen for prostate cancer. An ultrasound. This test uses sound waves to electronically produce a picture of your prostate gland. Your health care provider may refer you to a specialist in kidney and prostate diseases (urologist). How is this treated? Once symptoms begin, your health care provider will monitor your condition (active surveillance or watchful waiting). Treatment for this condition will depend on the severity of your condition. Treatment may include: Observation and yearly exams. This may be the only treatment needed if your condition and symptoms are mild. Medicines to relieve your symptoms, including: ?Medicines to shrink the prostate. ?Medicines to relax the muscle of the prostate. Surgery in severe cases. Surgery may include: ?Prostatectomy. In this procedure, the prostate tissue is removed completely through an open incision or with a laparoscope or robotics. ?Transurethral resection of the prostate (TURP). In this procedure, a tool is inserted through the opening at the tip of the penis (urethra). It is used to cut away tissue of the inner core of the prostate. The pieces are removed through the same opening of the penis. This removes the blockage. ?Transurethral incision (TUIP). In this procedure, small cuts are made in the prostate. This lessens the prostate's pressure on the urethra. ?Transurethral microwave thermotherapy (TUMT). This procedure uses microwaves to create heat. The heat destroys and removes a small amount of prostate tissue. ?Transurethral needle ablation (TUNA). This procedure uses radio frequencies to destroy and remove a small amount of prostate tissue. ?Interstitial laser coagulation (ILC). This procedure uses a laser to destroy and remove a small amount of prostate tissue. ?Transurethral electrovaporization (TUVP). This procedure uses electrodes to destroy and remove a small amount of prostate tissue. ?Prostatic urethral lift. This procedure inserts an implant to push the lobes of the prostate away from the urethra. Follow these instructions at home: Take fsgn-xii-jrgqurw and prescription medicines only as told by your health care provider. Monitor your symptoms for any changes. Contact your health care provider with any changes. Avoid drinking large amounts of liquid before going to bed or out in public. Avoid or reduce how much caffeine or alcohol you drink. Give yourself time when you urinate. Keep all follow-up visits. This is important. Contact a health care provider if: You have unexplained back pain. Your symptoms do not get better with treatment. You develop side effects from the medicine you are taking. Your urine becomes very dark or has a bad smell. Your lower abdomen becomes distended and you have trouble passing urine. Get help right away if: You have a fever or chills. You suddenly cannot urinate. You feel light-headed or very dizzy, or you faint. There are large amounts of blood or clots in your urine. Your urinary problems become hard to manage. You develop moderate to severe low back or flank pain. The flank is the side of your body between the ribs and the hip. These symptoms may be an emergency. Get help right away. Call 911. Do not wait to see if the symptoms will go away. Do not drive yourself to the hospital. Summary Benign prostatic hyperplasia (BPH) is an enlarged prostate that is caused by the normal aging process. It is not caused by cancer. An enlarged prostate can press on the urethra. This can make it hard to pass urine. This condition is more likely to develop in men older than 50 years. Get help right away if you suddenly cannot urinate. This information is not intended to replace advice given to you by your health care provider. Make sure you discuss any questions you have with your health care provider. Document Revised: 05/25/2022 Document Reviewed: 05/25/2022 [employer] Patient Education 2023 [employer]. Follow Up Care 09/24/2024 10:08:35 With:RASTA DAVID MD, URL Address: When: Unknown [facility] 12-19-2024 NotePatient Education Urology Benign Prostatic Hyperplasia Benign prostatic hyperplasia (BPH) is an enlarged prostate gland that is caused by the normal agingprocess. The prostate may get bigger as a man gets older. The condition is not caused by cancer. The prostate is a walnut-sized gland that is involved in the production of semen. It is located in front of the rectum and below the bladder. The bladder stores urine. The urethra carries stored urine ou t of the body. An enlarged prostate can press on the urethra. This can make it harder to pass urine. The buildup of urine in the bladder can cause infection. Back pressure and infection may progress to bladder damage and kidney (renal) failure. What are the causes? This condition is part of the normal aging process. However, not all men develop problems from thiscondition. If the prostate enlarges away from the urethra, urine flow will not be blocked. If it enlarges toward the urethra and compresses it, there will be problems passing urine. What increases the risk? This condition is more likely to develop in men older than 50 years. What are the signs or symptoms? Symptoms of this condition include: ??? Getting up often during the night to urinate. ??? Needing to urinate frequently during the day. ??? Difficulty starting urine flow. ??? Decrease in size and strength of your urine stream. ??? Leaking (dribbling) after urinating. ??? Inability to pass urine. This needs immediate treatment. ??? Inability to completely empty your bladder. ??? Pain when you pass urine. This is more common if there is also an infection. ??? Urinary tract infection (UTI). How is this diagnosed? This condition is diagnosed based on your medical history, a physical exam, and your symptoms. Tests will also be done, such as: ??? A post-void bladder scan. This measures any amount of urine that may remain in your bladder after you finish urinating. ??? A digital rectal exam. In a rectal exam, your health care provider checks your prostate by putting a lubricated, gloved finger into your rectum to feel the back of your prostate gland. This exam detects the size of your gland and any abnormal lumps or growths. ??? An exam of your urine (urinalysis). ??? A prostate specific antigen (PSA) screening. This is a blood test used to screen for prostate cancer. ??? An ultrasound. This test uses sound waves to electronically produce a picture of your prostate gland. Your health care provider may refer you to a specialist in kidney and prostate diseases (urologist). How is this treated? Once symptoms begin, your health care provider will monitor your condition (active surveillance or watchful waiting). Treatment for this condition will depend on the severity of your condition. Treatment may include: ??? Observation and yearly exams. This may be the only treatment needed if your condition and symptoms are mild. ??? Medicines to relieve your symptoms, including: ? Medicines to shrink the prostate. ? Medicines to relax the muscle of the prostate. ??? Surgery in severe cases. Surgery may include: ? Prostatectomy. In this procedure, the prostate tissue is removed completely through an open incision or with a laparoscope or robotics. ? Transurethral resection of the prostate (TURP). In this procedure, a tool is inserted through theopening at the tip of the penis (urethra). It is used to cut away tissue of the inner core of the prostate. The pieces are removed through the same opening of the penis. This removes the blockage. ? Transurethral incision (TUIP). In this procedure, small cuts are made in the prostate. This lessens the prostate's pressure on the urethra. ? Transurethral microwave thermotherapy (TUMT). This procedure uses microwaves to create heat. The heat destroys and removes a small amount of prostate tissue. ? Transurethral needle ablation (TUNA). This procedure uses radio frequencies to destroy and removea small amount of prostate tissue. ? Interstitial laser coagulation (ILC). This procedure uses a laser to destroy and remove a small amount of prostate tissue. ? Transurethral electrovaporization (TUVP). This procedure uses electrodes to destroy and remove a small amount of prostate tissue. ? Prostatic urethral lift. This procedure inserts an implant to push the lobes of the prostate awayfrom the urethra. Follow these instructions at home: ??? Take gjws-jcw-nrbchly and prescription medicines only as told by your health care provider. ??? Monitor your symptoms for any changes. Contact your health care provider with any changes. ??? Avoid drinking large amounts of liquid before going to bed or out in public. ??? Avoid or reduce how much caffeine or alcohol you drink. ??? Give yourself time when you urinate. ??? Keep all follow-up visits. This is important. Contact a health care provider if: ??? You have unexplained back pain. ??? Your symptoms do not get (more content not included)...[facility]11-01-2024 NoteProgress Note-Physician Patient: SAIDA HOANG Age: 79 years Sex: Male : 1945 Associated Diagnoses: None Author: MD Roach Ahmad F Postoperative Information Postoperative disposition: Postoperative disposition: To PACU. Optimetrix number: Optimetrix number [id number]. Anesthetic utilized: General. Health Status Allergies: Allergic Reactions (Selected) Severity Not Documented Accupril- Unknown. Codeine- Unknown. Penicillin- Rash. Sulfamethoxazole- Rash. Physical Examination VS/Measurements Pain Assessment: Controlled. General: Awake, Alert, Appropriate. Respiratory: Adequate air exchange. Cardiovascular: Stable, Normal peripheral perfusion. Neurological: Normal sensory function, Normal motor function. Assessment Anesthetic outcome No anesthetic complications noted. Adequate pain relief. able to void without difficulty, able to ambulate with assist, tolerating PO intake, no N/V. Review / Management Condition: Stable. Plan Transfer/Discharge: Transfer/Discharge Discharge when meets criteria ( To home ).[facility] InstituteComment on above:Result Comment: Electronically Signed By: MD Roach Ahmad F\.br\Date and Time Signed: 09/20/24 17:49 EDT 09-20-2024 NoteProgress Note-Physician Patient: SAIDA HOANG Age: 79 years Sex: Male : 1945 Associated Diagnoses: None Author: MD Roach Ahmad F Preoperative Information Time patient last ate or drank:=== (npo 8 hours) Anesthesia history: Patient history: No prior anesthesia problems. Re-evaluation prior to induction: Completed, Initial evaluation reviewed. Review of Systems Respiratory: No shortness of breath. Cardiovascular: No chest pain. Hematology/Lymphatics: No bruising tendency, No bleeding tendency. Health Status Allergies: Allergic Reactions (All) Severity Not Documented Accupril- Unknown. Codeine- Unknown. Penicillin- Rash. Sulfamethoxazole- Rash. Canceled/Inactive Reactions (All) Severity Not Documented Clarithromycin- Unknown. Current medications: (Selected) Prescriptions Prescribed Levsin 0.125 mg SL Tab: 0.125 mg = 1 tab(s), Oral, QID, PRN for spasm, X 5 day(s), # 20 tab(s), Refills(s) 0, Pharmacy: [id number], 187, cm, 09/19/24 11:53:00 EDT, Height/Length Dosing, 97.2, kg, 09/19/24 11:53:00 EDT, Weight Dosing Roxicodone 5 mg Tab: 5 mg = 1 tab(s), Oral, q12hr, PRN for pain, X 3 day(s), # 5 tab(s), Refills(s)0, Pharmacy: [id number], 187, cm, 09/19/24 11:53:00 EDT, Height/Length Dosing, 97.2, kg, 09/19/24 11:53:00 EDT, Weight Dosing Documented Medications Documented Entresto 24 mg-26 mg oral tablet: 1 tab(s), Oral, Daily, Refill(s) 0, High blood pressure MiraLax: 17 gm, Oral, BID, Refill(s) 0, Constipation Zetia: 5 mg, Oral, Daily, Refills(s) 0, High cholesterol buPROPion 150 mg/24 hours XL Tab: 300 mg = 2 tab(s), Oral, Daily, Refills(s) 0, Depression finasteride 5 mg Tab: 5 mg = 1 tab(s), Oral, Daily, # 30 tab(s), Refills(s) 0, High cholesterol folic acid 1 mg Tab: 2 mg = 2 tab(s), Oral, Daily, Refills(s) 0, Prophylaxis montelukast 10 mg Tab: 10 mg = 1 tab(s), Oral, Daily, Refills(s) 0 omeprazole 40 mg Cap-DR: 40 mg = 1 cap(s), Oral, Daily, Refills(s) 0, Indigestion potassium CITRATE 10 mEq ER Tab: 10 mEq, 1 tab(s), Oral, Daily, Refill(s) 0 rosuvastatin 20 mg Tab: 20 mg = 1 tab(s), Oral, Daily, Refills(s) 0, High cholesterol tamsulosin 0.4 mg Cap: 0.4 mg = 1 cap(s), Oral, Daily, Refills(s) 0 Problem list: All Problems BPH with urinary obstruction / SNOMED CT 4378894283 / Confirmed GERD (gastroesophageal reflux disease) / SNOMED CT 611510807 / Confirmed Hypertension / SNOMED CT 4950795906 / Confirmed Nephrolithiasis / SNOMED CT 498432897 / Confirmed Incomplete bladder emptying / SNOMED CT 920188444 / Confirmed Prostatitis / SNOMED CT 43765055 / Confirmed Hyperlipidemia / SNOMED CT 02130181 / Confirmed Impotence / SNOMED CT 4011583853 / Confirmed Urinary frequency / SNOMED CT 376375550 / Confirmed Microscopic hematuria / SNOMED CT 543171460 / Confirmed Nocturia / SNOMED CT 742698724 / Confirmed Urinary urgency / SNOMED CT 955070528 / Confirmed Urge incontinence / SNOMED CT 208131310 / Confirmed History of kidney stones / SNOMED CT 9039229523 / Confirmed Former smoker / SNOMED CT 80141207 / Confirmed PTSD (post-traumatic stress disorder) / SNOMED CT 13767387 / Confirmed JASPAL (obstructive sleep apnea) / SNOMED CT 655007575 / Confirmed Aortic aneurysm / SNOMED CT 907136586 / Confirmed Outside Source Comment: April 06, 2016 Entered By: MYNOR BLISS Comment: Unsure if aneurysm, but very small Carotid atherosclerosis / SNOMED CT 543885804 / Confirmed Outside Source Comment: April 06, 2016 Entered By: MYNOR BLISS Comment: Rt endart 2008 Depressive disorder / SNOMED CT 16422936 / Confirmed Generalized anxiety disorder / SNOMED CT 46807617 / Confirmed Type 2 diabetes mellitus controlled by diet / SNOMED CT 3221829315 / Confirmed Heart failure / SNOMED CT 627412545 / Confirmed Diverticulosis / SNOMED CT 3668071367 / Confirmed Positive colorectal cancer screening using Cologuard test / SNOMED CT 4413172322 / Confirmed BMI 28.0-28.9,adult / SNOMED CT 4534436936 / Confirmed Overweight / SNOMED CT 588369333 / Confirmed Benign neoplasm of descending colon / SNOMED CT 517179712 / Confirmed Sigmoid diverticulosis / SNOMED CT 5269510527 / Confirmed Ureteral stone with hydronephrosis / SNOMED CT 2564905467 / Confirmed Resolved: Anticoagulated / SNOMED CT 287540474 Canceled: Diabetes / SNOMED CT 321184993 Histories Past Medical History: Resolved Anticoagulated ([id number]): Resolved. Family History: Renal stone Mother Primary malignant neoplasm of lung Father Procedure history: Total RIGHT knee arthroplasty ([id number]) on 09/19/2024 at 79 Years. Cystoscopy retrograde stent insertion LEFT ([id number]) on 09/19/2024 at 79 Years. Colonoscopy ([id number]) on 11/01/2023 at 78 Years. Colonoscopy ([id number]) on 06/05/2020 at 75 Years. TURP - Transurethral resection of prostate ([id number]) on 12/03/2015 at 70 Years. Cystoscopy ([id number]) on 11/17/2015 at 70 Years. EGD - esoph (more content not included)...[facility]:Result Comment: Electronically Signed By: MD Doc, Lexie Dalal\.br\Date and Time Signed: 09/20/24 17:47 [id number] Hospital Discharge instructions Patient Education 09/19/2024 14:38:19 Post Op Patient Instructions - FT (CUSTOM) 09/19/2024 14:37:21 Kidney Stones, Udda-zy-Khce Kidney Stones Kidney stones are rock-like masses that form inside of the kidneys. Kidneys are organs that make pee (urine). A kidney stone may move into other parts of the urinary tract, including: The tubes that connect the kidneys to the bladder (ureters). The bladder. The tube that carries urine out of the body (urethra). Kidney stones can cause very bad pain and can block the flow of pee. The stone usually leaves your body through your pee. A doctor may need to take out the stone. What are the causes? Kidney stones may be caused by: Too much calcium in the body. This may be caused by too much parathyroid hormone in the blood. Uric acid crystals in the bladder. The body makes uric acid when you eat certain foods. Narrowing of one or both of the ureters. A kidney blockage that you were born with. Past surgery on the kidney or the ureters. What increases the risk? You are more likely to develop this condition if: You have had a kidney stone in the past. Other people in your family have had kidney stones. You do not drink enough water. You eat a diet that is high in protein, salt (sodium), or sugar. You are very overweight (obese). What are the signs or symptoms? Symptoms of a kidney stone may include: Pain in the side of the belly, right below the ribs. Pain usually spreads to the groin. Needing to pee often or right away. Pain when peeing. Blood in your pee. Feeling like you may vomit (nauseous). Vomiting. Fever and chills. How is this treated? Treatment depends on the size, location, and makeup of the kidney stones. The stones will often pass out of the body when you pee. You may need to: Drink more fluid to help pass the stone. ?In some cases, you may be given fluids through an IV tube at the hospital. Take medicine for pain. Change your diet to help keep kidney stones from coming back. Sometimes, you may need: A procedure to break up kidney stones using a beam of light (laser) or shock waves. Surgery to remove the kidney stones. Follow these instructions at home: Medicines Take tgxy-zra-xyjsvlq and prescription medicines only as told by your doctor. Ask your doctor if the medicine prescribed to you requires you to avoid driving or using machinery. Eating and drinking Drink enough fluid to keep your pee pale yellow. ?You may be told to drink at least 8 10 glasses of water each day. This will help you pass the stone. If told by your doctor, change your diet. You may be told to: ?Limit how much salt you eat. ?Eat more fruits and vegetables. ?Limit how much meat, poultry, fish, and eggs you eat. Follow instructions from your doctor about what you may eat and drink. General instructions Collect pee samples as told by your doctor. You may need to collect a pee sample: ?24 hours after a stone comes out. ?8 12 weeks after a stone comes out, and every 6 12 months after that. Strain your pee every time you pee. Use the strainer that your doctor recommends. Do not throw out the stone. Keep it so that it can be tested by your doctor. Keep all follow-up visits. You may need X-rays and ultrasounds to make sure the stone has come out. How is this prevented? To prevent another kidney stone: Drink enough fluid to keep your pee pale yellow. This is the best way to prevent kidney stones. Eat healthy foods. Avoid certain foods as told by your doctor. You may be told to eat less protein. Stay at a healthy weight. Where to find more information National Kidney Foundation (NKF): kidney.org Urology Care Foundation (UCF): urologyhealth.org Contact a doctor if: You have pain that gets worse or does not get better with medicine. Get help right away if: You have a fever or chills. You get very bad pain. You get new pain in your belly. You faint. You cannot pee. This information is not intended to replace advice given to you by your health care provider. Make sure you discuss any questions you have with your health care provider. Hydrate vigorously with at least 2 L/day Pain control with Tylenol. Take oxycodone for breakthrough It is expected that she will have blood in the urine that should clear up soon Document Revised: 06/30/2023 Document Reviewed: 06/30/2023 [employer] Patient Education 2023 [employer]. Follow Up Care 09/16/2024 10:43:06 With:RASTA DAVID Address: [address] [place] [phone] Business (1) When: Unknown Comments:[facility] 10-31-2024 NotePatient Education - Text Urology Kidney Stones Kidney stones are rock-like masses that form inside of the kidneys. Kidneys are organs that make pee (urine). A kidney stone may move into other parts of the urinary tract, including: ??? The tubes that connect the kidneys to the bladder (ureters). ??? The bladder. ??? The tube that carries urine out of the body (urethra). Kidney stones can cause very bad pain and can block the flow of pee. The stone usually leaves your body through your pee. A doctor may need to take out the stone. What are the causes? Kidney stones may be caused by: ??? Too much calcium in the body. This may be caused by too much parathyroid hormone in the blood. ??? Uric acid crystals in the bladder. The body makes uric acid when you eat certain foods. ??? Narrowing of one or both of the ureters. ??? A kidney blockage that you were born with. ??? Past surgery on the kidney or the ureters. What increases the risk? You are more likely to develop this condition if: ??? You have had a kidney stone in the past. ??? Other people in your family have had kidney stones. ??? You do not drink enough water. ??? You eat a diet that is high in protein, salt (sodium), or sugar. ??? You are very overweight (obese). What are the signs or symptoms? Symptoms of a kidney stone may include: ??? Pain in the side of the belly, right below the ribs. Pain usually spreads to the groin. ??? Needing to pee often or right away. ??? Pain when peeing. ??? Blood in your pee. ??? Feeling like you may vomit (nauseous). ??? Vomiting. ??? Fever and chills. How is this treated? Treatment depends on the size, location, and makeup of the kidney stones. The stones will often pass out of the body when you pee. You may need to: ??? Drink more fluid to help pass the stone. ? In some cases, you may be given fluids through an IV tube at the hospital. ??? Take medicine for pain. ??? Change your diet to help keep kidney stones from coming back. Sometimes, you may need: ??? A procedure to break up kidney stones using a beam of light (laser) or shock waves. ??? Surgery to remove the kidney stones. Follow these instructions at home: Medicines ??? Take brpd-yjh-yaugblv and prescription medicines only as told by your doctor. ??? Ask your doctor if the medicine prescribed to you requires you to avoid driving or using machinery. Eating and drinking ??? Drink enough fluid to keep your pee pale yellow. ? You may be told to drink at least 8???10 glasses of water each day. This will help you pass the stone. ??? If told by your doctor, change your diet. You may be told to: ? Limit how much salt you eat. ? Eat more fruits and vegetables. ? Limit how much meat, poultry, fish, and eggs you eat. ??? Follow instructions from your doctor about what you may eat and drink. General instructions ??? Collect pee samples as told by your doctor. You may need to collect a pee sample: ? 24 hours after a stone comes out. ? 8???12 weeks after a stone comes out, and every 6???12 months after that. ??? Strain your pee every time you pee. Use the strainer that your doctor recommends. ??? Do not throw out the stone. Keep it so that it can be tested by your doctor. ??? Keep all follow-up visits. You may need X-rays and ultrasounds to make sure the stone has come out. How is this prevented? To prevent another kidney stone: ??? Drink enough fluid to keep your pee pale yellow. This is the best way to prevent kidney stones. ??? Eat healthy foods. ??? Avoid certain foods as told by your doctor. You may be told to eat less protein. ??? Stay at a healthy weight. Where to find more information ??? National Kidney Foundation (NKF): kidney.org ??? Urology Care Foundation (UCF): urologyhealth.org Contact a doctor if: ??? You have pain that gets worse or does not get better with medicine. Get help right away if: ??? You have a fever or chills. ??? You get very bad pain. ??? You get new pain in your belly. ??? You faint. ??? You cannot pee. This information is not intended to replace advice given to you by your health care provider. Make sure you discuss any questions you have with your health care provider. Hydrate vigorously with at least 2 L/day Pain control with Tylenol. Take oxycodone for breakthrough It is expected that she will have blood in the urine that should clear up soon Document Revised: 06/30/2023 Document Reviewed: 06/30/2023 [employer] Patient Education ??? 2023 [employer] 09-19-2024 Evaluation + Plan note Diagnostic Tests Pending * Calculi Analysis Urinary 09/19/24 [facility] 10-29-2024 Hospital Discharge instructions Patient Education 09/17/2024 13:06:30 Ureteroscopy Ureteroscopy Ureteroscopy is a procedure to check for and treat problems inside part of the urinary tract. In this procedure, a long rigid or flexible tube with a lens and light at the end (ureteroscope) is used to look at the inside of the kidneys and the ureters. The ureters are the tubes that carry urine from the kidneys to the bladder. The ureteroscope is inserted into one or both of the ureters. You may need this procedure if you have frequent urinary tract infections (UTIs), blood in your urine, or a stone in one or both of your ureters. A ureteroscopy can be done: To find the cause of urine blockage in a ureter and to evaluate other abnormalities inside the ureters or kidneys. To remove stones. To remove or treat growths of tissue (polyps), abnormal tissue, and some types of tumors. To remove a tissue sample and check it for disease under a microscope (biopsy). Tell a health care provider about: Any allergies you have. All medicines you are taking, including vitamins, herbs, eye drops, creams, and srsd-vfv-rvofisr medicines. Any problems you or family members have had with anesthetic medicines. Any bleeding problems you have. Any surgeries you have had. Any medical conditions you have. Whether you are or may be . What are the risks? Your health care provider will talk with you about risks. These may include: Abdominal pain or a burning feeling or pain while urinating. Abnormal bleeding. A UTI. Allergic reactions to medicines. Scarring that narrows the ureter (stricture) or swelling. Creating a hole (perforation) in the ureter. Damage to other structures or organs, such as the part of your body that drains urine from your bladder (urethra), your bladder, or your uterus. What happens before the procedure? When to stop eating and drinking 8 hours before your procedure ?Stop eating most foods. Do not eat meat, fried foods, or fatty foods. ?Eat only light foods, such as toast or crackers. ?All liquids are okay except energy drinks and alcohol. 6 hours before your procedure ?Stop eating. ?Drink only clear liquids, such as water, clear fruit juice, black coffee, plain tea, and sports drinks. ?Do not drink energy drinks or alcohol. 2 hours before your procedure ?Stop drinking all liquids. ?You may be allowed to take medicines with small sips of water. Medicines Ask your health care provider about: Changing or stopping your regular medicines. These include any diabetes medicines or blood thinnersyou take. Taking medicines such as aspirin and ibuprofen. These medicines can thin your blood. Do not take these medicines unless your health care provider tells you to. Taking ooqb-wmx-cctvqyn medicines, vitamins, herbs, and supplements. General instructions Do not use any products that contain nicotine or tobacco for at least 4 weeks before the procedure.These products include cigarettes, chewing tobacco, and vaping devices, such as e-cigarettes. If you need help quitting, ask your health care provider. If you will be going home right after the procedure, plan to have a responsible adult: ?Take you home from the hospital or clinic. You will not be allowed to drive. ?Care for you for the time you are told. Ask your health care provider what steps will be taken to help prevent infection. These may include: ?Washing skin with a soap that kills germs. ?Receiving antibiotic medicine. Tests You may have an exam or testing. ?You may have a urine sample taken to check for infection. What happens during the procedure? An IV will be inserted into one of your veins. You may be given: ?A sedative. This helps you relax. ?Anesthesia. This will: ?Numb certain areas of your body. ?Make you fall asleep for surgery. Your urethra will be cleaned with a germ-killing solution. The ureteroscope will be passed through your urethra into your bladder. A salt-water solution will be sent through the ureteroscope to fill your bladder. This will help the health care provider see the openings of your ureters more clearly. The ureteroscope will be passed into your ureter. ?If a growth is found, a biopsy may be done. ?If a stone is found, it may be removed through the ureteroscope, or the stone may be broken up using a laser, shock waves, or electrical energy. ?In some cases, if the ureter is too small, a tube may be inserted that keeps the ureter open (ureteral stent). The stent may be left in place for 1 or 2 weeks, and then the ureteroscopy procedure will be done again. The scope will be removed, and your bladder will be emptied. The procedure may vary among health care providers and hospitals. What happens after the procedure? Your blood pressure, heart rate, breathing rate, and blood oxygen level will be monitored until youleave the hospital or clinic. It is up to you to get the results of your procedure. Ask your health care provider, or the department that is doing the procedure, when your results will be ready. Summary Ureteroscopy is a procedure used to look at the inside of the kidneys and the ureters. You may need this procedure if you have frequent urinary tract infections (UTIs), blood in your urine, or a stone in one or both of your ureters. Follow instructions from your health care provider about eating and drinking. In some cases, if the ureter is too small, a tube may be inserted that keeps the ureter open (ureteral stent). The stent may be left in place for 1 or 2 weeks to keep the ureter open, and then the ureteroscopy procedure will be done again. This information is not intended to replace advice given to you by your health care provider. Make sure you discuss any questions you have with your health care provider. Document Revised: 10/09/2023 Document Reviewed: 10/09/2023 [employer] Patient Education 2023 [employer]. Follow Up Care 09/15/2024 17:23:37 With:GENOVEVA LAMA, EMMY MAGDALENO Address: When: Unknown [facility] 10-29-2024 NotePatient Education Urology Ureteroscopy Ureteroscopy is a procedure to check for and treat problems inside part of the urinary tract. In this procedure, a long rigid or flexible tube with a lens and light at the end (ureteroscope) is used to look at the inside of the kidneys and the ureters. The ureters are the tubes that carry urine from the kidneys to the bladder. The ureteroscope is inserted into one or both of the ureters. You may need this procedure if you have frequent urinary tract infections (UTIs), blood in your urine, or a stone in one or both of your ureters. A ureteroscopy can be done: ??? To find the cause of urine blockage in a ureter and to evaluate other abnormalities inside the ureters or kidneys. ??? To remove stones. ??? To remove or treat growths of tissue (polyps), abnormal tissue, and some types of tumors. ??? To remove a tissue sample and check it for disease under a microscope (biopsy). Tell a health care provider about: ??? Any allergies you have. ??? All medicines you are taking, including vitamins, herbs, eye drops, creams, and zxgr-lxr-wkvoklj medicines. ??? Any problems you or family members have had with anesthetic medicines. ??? Any bleeding problems you have. ??? Any surgeries you have had. ??? Any medical conditions you have. ??? Whether you are or may be . What are the risks? Your health care provider will talk with you about risks. These may include: ??? Abdominal pain or a burning feeling or pain while urinating. ??? Abnormal bleeding. ??? A UTI. ??? Allergic reactions to medicines. ??? Scarring that narrows the ureter (stricture) or swelling. ??? Creating a hole (perforation) in the ureter. ??? Damage to other structures or organs, such as the part of your body that drains urine from yourbladder (urethra), your bladder, or your uterus. What happens before the procedure? When to stop eating and drinking ??? 8 hours before your procedure ? Stop eating most foods. Do not eat meat, fried foods, or fatty foods. ? Eat only light foods, such as toast or crackers. ? All liquids are okay except energy drinks and alcohol. ??? 6 hours before your procedure ? Stop eating. ? Drink only clear liquids, such as water, clear fruit juice, black coffee, plain tea, and sports drinks. ? Do not drink energy drinks or alcohol. ??? 2 hours before your procedure ? Stop drinking all liquids. ? You may be allowed to take medicines with small sips of water. Medicines Ask your health care provider about: ??? Changing or stopping your regular medicines. These include any diabetes medicines or blood thinners you take. ??? Taking medicines such as aspirin and ibuprofen. These medicines can thin your blood. Do not take these medicines unless your health care provider tells you to. ??? Taking zist-mmk-hrweure medicines, vitamins, herbs, and supplements. General instructions ??? Do not use any products that contain nicotine or tobacco for at least 4 weeks before the procedure. These products include cigarettes, chewing tobacco, and vaping devices, such as e-cigarettes. If you need help quitting, ask your health care provider. ??? If you will be going home right after the procedure, plan to have a responsible adult: ? Take you home from the hospital or clinic. You will not be allowed to drive. ? Care for you for the time you are told. ??? Ask your health care provider what steps will be taken to help prevent infection. These may include: ? Washing skin with a soap that kills germs. ? Receiving antibiotic medicine. Tests ??? You may have an exam or testing. ? You may have a urine sample taken to check for infection. What happens during the procedure? An IV will be inserted into one of your veins. ??? You may be given: ? A sedative. This helps you relax. ? Anesthesia. This will: ? Numb certain areas of your body. ? Make you fall asleep for surgery. ??? Your urethra will be cleaned with a germ-killing solution. ??? The ureteroscope will be passed through your urethra into your bladder. ??? A salt-water solution will be sent through the ureteroscope to fill your bladder. This will help the health care provider see the openings of your ureters more clearly. ??? The ureteroscope will be passed into your ureter. ? If a growth is found, a biopsy may be done. ? If a stone is found, it may be removed through the ureteroscope, or the stone may be broken up using a laser, shock waves, or electrical energy. ? In some cases, if the ureter is too small, a tube may be inserted that keeps the ureter open (ureteral stent). The stent may be left in place for 1 or 2 weeks, and then the ureteroscopy procedure will be done again. ??? The scope will be removed, and your bladder will be emptied. The procedure may vary among health care providers and hospitals. What happens after the procedure? (more content not included)...[facility] NoteChief Complaint consultation for positive Cologuard HPI Staff [...] swallowing difficulties, no hearing loss, no ear infection(s),no nose bleeds. Cardiovascular: normal blood pressure, no [...] Oral, Daily MiraLax, 17 (more content not included)...[facility] InstituteComment on above:Result Comment: Electronically Signed By: Daniel HILL MD.madno\Date and Time Signed: 10/10/23 16:09 ESTEvaluation + Plan note No data available for this section General Surgery [place] Evaluation + Plan note Future Appointments Appointment Date:09/19/2024 02:00:00 PM Scheduled Provider: Location:[facility] Appointment Type:Surgery [facility] Evaluation + Plan note Future Appointments Appointment Date:11/07/2024 01:00:00 PM Scheduled Provider:RASTA DAVID MD Location:[facility] Appointment Type:URO Office Visit Future Scheduled Tests Radiology* XR Abdomen 1 View 09/24/24 [facility] Evaluation + Plan note Future Appointments Appointment Date:11/07/2024 01:00:00 PM Scheduled Provider:RASTA DAVID MD Location:[facility] Appointment Type:URO Office Visit [facility] Hospital Discharge instructions No data available for this section General Surgery [place] Progress note No data available for this section General Surgery [place] Summary Purpose Family History No Family History Records Found No data available for this section No Family History Records Found No data available for this section No data available for this section No Family History Records Found No data available for this section No data available for this section No data available for this section No Family History Records FoundNo Family History Records Found Advance Directives No Advanced Directives Records FoundNo Advanced Directives Records FoundNo Advanced Directives Records FoundNo Advanced Directives Records FoundNo Advanced Directives Records Found Additional Source Comments (unrecognized sect ion and content) No Status Records FoundNo Status Records FoundNo Status Records FoundNo Status Records FoundNo Status Records Found INFORMATION SOURCE (unrecogn ized section and content) DATE CREATED AUTHOR 03/04/2022 [facility] DATE CREATED AUTHOR AUTHOR'S ORGANIZ ATION 04/21/2024 [facility] DATE CREATED AUTHOR AUTHOR'S ORGANIZ ATION 09/21/2024 [facility] DATE CREATED AUTHOR AUTHOR'S ORGANIZ ATION 11/10/2024 [facility] DATE CREATED AUTHOR AUTHOR'S ORGANIZ ATION 11/12/2024 [facility] Patient Care team informatio n (unrecognized section and content) Personnel Name: DG BALDWIN JR, DO Address: Address: [address] [place] [address] Personnel Name: DG BALDWIN JR, DO Address: Address: [address] [place] [address] Personnel Name: DG BALDWIN JR, DO Address: Address: [address] [place] [address] Personnel Name: DOINDG WRIGHT JR, DO Address: Address: [address] [place], [place] [id number] Personnel Name: DG BALDWIN JR, DO Address: Address: [address] [place] [address] Personnel Name: ODINDG WRIGHT JR, DO Address: Address: [address] [place], [place] [id number] FOR RECORDS PERTAINING TO PATIENTS WHO ARE [...] BE BASED ON THE PRIMARY CLINICAL RECORDS. [facility] [employer] [facility]. provides no warranty or guarantee of the accuracy or completeness of information in this document.
--- OUTSIDE RECORDS SUMMARY | 2025-09-21 06:33 | XMS_ITS | Clinical Summary ---
Author Organization [employer] Address [id number] [place] [address] Care Team Providers Care Cath Lab Radiology Technician Name Role Phone Hair Vela DO, Charles L Primary Care Provider Allergies Active AllergyReactionsCriticalityNoted DateComments Sulfamethoxazole-HtemllemfemqRnwntrxse04/06/1515XgqnamvKsrbl17/06/2020 Yaxxuudzwyw46/06/2020 As a child, passed out after dental surgery Oxycodone-AcetaminophenAbdominal Pain07/29/2020Sulfa (Sulfonamide Antibiotics) Pshnhybjr06/06/2020 Medications MedicationSigDispense QuantityRefillsLast FilledStart DateEnd DateStatus famotidine (PEPCID) 40 mg tablet Take 40 mg by mouth daily.Active losartan-hydroCHLOROthiazide (HYZAAR) 50-12.5 mg per tablet Take 1 tablet by mouth daily.Active montelukast (SINGULAIR) 10 mg tablet Take 10 mg by mouth nightly.Active folic acid (FOLVITE) 1 mg tablet Take 1 mg by mouth daily.Active buPROPion XL (WELLBUTRIN XL) 300 mg 24 hr tablet Take 300 mg by mouth daily.Active finasteride (PROSCAR) 5 mg tablet Take 5 mg by mouth daily.Active ezetimibe (ZETIA) 10 mg tablet Take 10 mg by mouth daily.Active rosuvastatin (CRESTOR) 20 mg tablet Take 20 mg by mouth daily.Active potassium chloride (MICRO-K) 10 MEQ CR capsule Take 10 mEq by mouth 2 (two) times a day.Active multivit-min/FA/lycopen/lutein (CENTRUM SILVER MEN ORAL) Take by mouth daily.Active cyanocobalamin (vitamin B-12) 250 MCG tablet Take 1,250 mcg by mouth daily.Active cholecalciferol, vitamin D3, 2,000 units capsule Take 2,000 Units by mouth daily.Active polyethylene glycol (GLYCOLAX) 17 gram packet Take 17 g by mouth daily.Active Active Problems ProblemNoted DateDiagnosed DatePrimary osteoarthritis of right knee07/28/2020 Family History Medical HistoryRelationNameCommentsCancerFatherlung, brainDiabetesMotherHeart attackMotherHeart diseaseMotherRelationNameStatusCommentsFatherDeceasedMother (Age 84) Social History Tobacco UseTypesPacks/DayYears UsedDateSmoking Tobacco: FormerSmokeless Tobacco: Never Comments:quit 1976 Alcohol UseStandard Drinks/WeekCommentsNot Currently0 (1 standard drink = 0.6 oz pure alcohol)Social Connection and Isolation PanelAnswerDate RecordedIn a typical week, how many times do you talk on the phone with family, friends, or neighbors?Three times a week07/29/2020How often do you get together with friends or relatives?Twice a week07/29/2020How often do you attend scientology or pentecostalism services?Never07/29/2020Do you belong to any clubs or organizations such as scientology groups, unions, fraternal or athletic groups, or school groups?Yes 07/29/2020How often do you attend meetings of the clubs or organizations you belong to?1 to 4 times per year07/29/2020Are you , , , , never , or living with a partner?Xbxmjid0607/29/2020PHQ-2Answer Date RecordedTotal Fngnl565[facility] [place] of Occupational Health - Occupational Stress QuestionnaireAnswerDate RecordedDo you feel stress - tense, restless, nervous, or anxious, or unable to sleep at night because yourmind is troubled all the time - these days?To some ijilbf5507/29/2020Exercise Vital Sign AnswerDate RecordedOn average, how many days per week do you engage in moderate to strenuous exercise (like a brisk walk)?7 days07/29/2020On average, how many minutes do you engage in exercise at this level?150+ min07/29/2020Childcare AnswerDate RecordedDo problems getting early childhood services coordinator make it difficult for you to work or study?No07/29/2020EmploymentAnswerDate RecordedDo you need help finding a local career center and/or a training program?No07/29/2020Purpose - LifeAnswer Date RecordedPurpose and direction in tkktNljrvzu44/11/2021ex and Gender InformationValueDate RecordedSex Assigned at BirthNot on fileLegal SexMale 06/25/2015 11:53 AM EDTGender IdentityNot on fileSexual OrientationNot on file Last Filed Vital Signs Vital SignReadingTime TakenCommentsBlood Ucyvuwmf729/7009 11:46 AM EDT Lntmn778207/30/2020 11:46 AM RJYBvkjijethsd84.6 ??C (97.9 ??F)07/30/2020 11:46 AM EDTRespiratory Gbvi861607/30/2020 11:46 AM EDTOxygen Ckmlfnewkv90%07/30/2020 11:46 AM EDTInhaled Oxygen Concentration--Orlurp873 kg (255 lb 11.2 oz)07/30/2020 6:05 AM QIDPoefri265.5 cm (6' 3 )07/29/2020 1:51 PM EDTBody Mass Index31.9607/29/2020 1:51 PM EDT Plan of Treatment Health MaintenanceDue DateLast DoneCommentsDepression Vrvfbulsg29/03/1959Tobacco Yxifayqri62/03/1959DTaP,Tdap and Td Vaccines (1 - Tdap)1966Fall Risk Fezjfpmgn73/03/2012Zoster (Shingles) Vaccine (2 of 3)COVID- 19 Vaccine (4 - season)/, 01/27/2021, 12/30/2020 Influenza Skduaxu00/06/2019, 11/01/2017 Goals GoalPatient Goal TypeAssociated ProblemsRecent ProgressPatient-Stated?Author Home with Bozena Saul LSW Note: Evaluation of progress towards goal: Safe dc transition from hospital to home with family support and DIEGO [facility] in home therapy. Medical Devices ImplantedTypeAreaManufacturerDevice IdentifierShenry county hospitalf Expiration DateModel / Serial / LotCmnt Bn Bio 40 - [id number] - [id number] Implanted:Qty: 2 on 07/29/2020 by Meño Mathews, [facility] KneeZimmer [id number] / [id number] / [id number] Bn Bio 40gm - Sna - [id number] Implanted:Qty: 1 on 07/29/2020 by Meño Mathews [facility]: KneeZimmer [id number] / NA / [id number] Ptlr 38mm Medialized Dome - [id number] - [id number] Implanted:Qty: 1 on 07/29/2020 by Meño Mathews DO at [facility] ImplantRight: KneeJJ [id number]/30/[id number] / [id number] / [id number] Tib 8 8mm Cr Fx Brng - [id number] - [id number] Implanted:Qty: 1 on 07/29/2020 by Meño Mathews DO at [facility] ImplantRight: Knee [id number]/31/[id number] / [id number] / [id number] Fem 8 Kn Rt Cr Cmnt - [id number] - [id number] Implanted:Qty: 1 on 07/29/2020 by Meño Mathews DO at [facility] ImplantRight: KneeJ [id number]/30/[id number] / [id number] / [id number] Kn Fx Brng W Spcl Ins Construct Rpl [id number] - Sna - [id number] Implanted:Qty: 1 on 07/29/2020 by Meño Mathews DO at [facility] ImplantJJ [id number] / NA / NABsplt Tib 8 Kn Cmnt Fx Brng - [id number] - [id number] Implanted:Qty: 1 on 07/29/2020 [facility] KneeJJ [id number]/30/[id number] / [id number] / [id number] Insurance Advance Directives * Full Code (Latest Code Status on File) Date ActivatedDate InactivatedComments07/29/2020 12:58 PM07/30/2020 7:57 PM Care Teams Team MemberRelationshipSpecialtyStart DateEnd Date Tong Arndt Jr., [facility] [place] [address] PCP - GeneralInternal Medicine01/24/20
--- OUTSIDE RECORDS SUMMARY | 2025-09-21 06:34 | XMS_ITS | Patient Health Record ---
Author Organization [facility] in [place] Address [address] [place] [address] Care Team Providers Care Aboriginal Liaison Officer Name Role Phone Tong Arndt DO Primary Care Provider Unavail able Reason For Referral No Information Medications Medication SIG (Take, Route, Frequency, Duration) Notes Start Date End Date Status Sentry Senior ActiveMontelukast SodiumActiveOmeprazoleActivebuPROPion HClActiveTylenolActive Losartan PotassiumActiveRosuvastatin CalciumActiveFinasterideActiveEzetimibe Active Problems Problem Type SNOMED Code ICD Code Onset Dates Problem Status W/U Status Risk Notes Problem Posttraumatic stress disorder (26063340) PTSD (post-traumatic stress disorder) (F43.10) ActiveconfirmedProblemObstructive sleep apnea syndrome (13526742)Obstructive sleep apnea syndrome (G47.33)ActiveconfirmedProblemExcessive daytime sleepiness (6707348959)Excessive daytime sleepiness (G47.19)ActiveconfirmedProblem Obstructive sleep apnea syndrome (95345449)Mild obstructive sleep apnea (G47.33) ActiveconfirmedProblemNightmares (622529874)Nightmares (F51.5)Activeconfirmed 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
[2025-09-21 07:04] LABS: Hematocrit 41.1 % (42.0-54.0); Hemoglobin 13.5 g/dL (14.0-18.0); Immature Granulocytes Abs Auto 0.03 10^3/uL (0.00-0.03); Immature Granulocytes Pct Auto 0.3 % (0.0-0.5); Lymphocytes Absolute Auto 1.0 10^3/uL (1.2-3.8); Mean Corpuscular HGB Conc 32.8 g/dL (29.9-35.2); Mean Corpuscular Hemoglobin 29.8 pg (25.9-34.0); Mean Corpuscular Volume 90.7 fL (80.0-94.0); Platelet Count 231 10^3/uL (150-450); Red Blood Count 4.53 10^6/uL (4.70-6.10); White Blood Count 9.5 10^3/uL (4.0-11.0)
[2025-09-21 07:18] LABS: Albumin Globulin Ratio 1.2; Albumin Level 3.7 g/dL (3.4-5.0); Alkaline Phosphatase 98 U/L (46-116); Anion Gap 13.2; Aspartate Amino Transferase 11 U/L (15-37); Blood Urea Nitrogen 28.0 mg/dL (7.0-18.0); Calcium 10.0 mg/dL (8.5-10.1); Carbon Dioxide 24.9 mmol/L (21.0-32.0); Chloride 110 mmol/L (98-107); Estimated GFR (African America 45 (>=60 mL/min/1.73m^2); Estimated GFR (Non-African Ame 37 (>=60 mL/min/1.73m^2); Globulin 3.2 g/dL; Glucose 90 mg/dL (74-106); Potassium 4.1 mmol/L (3.5-5.1); Sodium 144 mmol/L (136-145); Total Protein 6.9 g/dL (6.4-8.2)
[2025-09-21 07:28] LABS: Glucose Urine UA NEGATIVE (NEGATIVE)
[2025-09-21 07:31] LABS: Alanine Aminotransferase 9 U/L (16-63)
[2025-09-21 07:38] LABS: Cannabinoid Screen Urine NEGATIVE (NEGATIVE); Cast Seen? SEEN #/LPF (NONE SEEN); Crystals Seen? None Seen #/HPF (None Seen); Methamphetamines Screen Urine NEGATIVE (NEGATIVE); Tricyclic Antidepressant Urine NEGATIVE (NEGATIVE); Urine Culture Indicated NO
== END 2025-09-21 08:57 | disposition home or self-care (01) ==
PROVIDERS: Emergency Provider Emergency Medicine; PCP Internal Medicine
DX: G20.A1 Parkinson's disease without dyskinesia, without mention of fluctuations (principal); F02.80 Dementia in other diseases classified elsewhere, unspecified severity, without behavioral disturbance, psychotic disturbance, mood disturbance, and anxiety; Z87.891 Personal history of nicotine dependence
CPT/HCPCS: 36415; 70450; 71045; 80048; 80076; 80307; 80320; 81001; 82948; 84484; 85025; 93005; 99285